=== PATIENT | female | born 1965 | race Caucasian/White ===

== ENCOUNTER 2024-07-23 11:47 | Inpatient (IN) | payer MEDICAID, SELFPAY ==
[2024-07-23] VITALS (8 sets, daily range): BP systolic 123–157; BP diastolic 88–105; PULSE 90–101; RESP 19–96; TEMP 36.5–37.2; O2SAT 95–97
--- NOTE | 2024-07-23 12:51 | EKG_ITS ---
[facility] Test Date: 2024-07-23 Pat Name: TANYA LOJA Department: Room: - Gender: Female Radiology Rn: : 1965 Requested By: Varinder Alba (MARIA ELENA) Order Number: [id number] Reading MD: Varinder Alba (CLOTHING PATTERNMAKER) Measurements Intervals [place] Rate: 90 P: -15 NJ: 184 QRS: 32 QRSD: 77 T: 53 QT: 333 QTc: 409 Interpretive Statements SINUS RHYTHM LOW QRS VOLTAGE IN PRECORDIAL LEADS [QRS DEFLECTION < 1.0 mV IN CHEST LEADS] POSSIBLE ANTERIOR MYOCARDIAL INFARCTION , OF INDETERMINATE AGE [30 ms Q WAVE IN V3/V4, OR R < 0.2 mV IN V4] No previous ECG available for comparison /store/S0/[id number].pdf
--- NOTE | 2024-07-23 12:51 | XR_ITS ---
Examination: AP chest single view Technique one AP portable sitting chest single view Exam date and time: July 23, 2024 1259 hours INDICATIONS: Coughing diarrhea beginning one week ago FINDINGS: Normal heart size No lobar pneumonia Minor atelectasis left lower lobe Old fracture right humeral neck with significant displacement at the fracture site with orthopedic hardware noted IMPRESSION: No pneumonia identified
--- NOTE | 2024-07-23 12:52 | PD.EDRME ---
Rapid Medical Screening Exam RME Arrival date/time: 07/23/24 11:47 58-year-old female presents to the emergency department today via EMS with complaints of generalized weakness Vital signs: Vital Signs Temperature 98.0 F 07/23/24 11:51 Pulse Rate 95 07/23/24 11:51 Respiratory Rate 20 07/23/24 11:51 Blood Pressure 157/97 H 07/23/24 11:51 Pulse Oximetry (%) 95 07/23/24 11:51 Oxygen Delivery Method Room Air 07/23/24 11:51
[2024-07-23 13:42] LABS: Basophils % (Auto) 0 % (0-2.5); Eosinophils % (Auto) 0 % (0-10); Hematocrit 34.9 % (36.0-46.0); Immature Granulocytes % (Auto) 1 % (0-0); Immature Granulocytes Auto 0.04 Thou/mm3 (0.00-0.00); Lymphocytes # (Auto) 0.8 Thou/mm3 (1.0-4.8); Lymphocytes % (Auto) 10 % (10-50); Mean Corpuscular HGB Conc 37.2 g/dl (31.0-37.0); Mean Corpuscular Hemoglobin 33.1 pg (25.0-35.0); Mean Corpuscular Volume 89 fL (80-100); Monocytes # (Auto) 0.6 Thou/mm3 (0.0-0.8); Monocytes % (Auto) 7 % (0-12); Neutrophils # (Auto) 6.2 Thou/mm3 (1.8-7.7); Neutrophils % (Auto) 82 % (37-80); Nucleated Red Blood Cell % 0 /100 WBC (0); Platelet Count 205 Thou/mm3 (140-440); RDW Standard Deviation 38.5 fL (36.4-46.3); Red Blood Count 3.93 Miln/mm3 (4.00-5.20); White Blood Count 7.6 Thou/mm3 (3.6-11.0)
[2024-07-23 13:55] LABS: Alanine Aminotransferase 47 U/L (10-49); Albumin, Serum 4.5 gm/dL (3.4-4.8); Albumin/Globulin Ratio 1.7 (1.2-2.2); Alkaline Phosphatase 90 U/L (46-116); Anion Gap 11 (7-16); Aspartate Amino Transferase 40 U/L (0-34); BUN/Creatinine Ratio 9 Ratio (12-20); Bilirubin,Total 1.2 mg/dL (0.3-1.2); Blood Urea Nitrogen 6 mg/dL (9-23); Calcium 8.8 mg/dL (8.3-10.6); Calcium (Corrected) 8.8 mg/dL (8.5-10.1); Carbon Dioxide 19.4 mMol/L (20.0-31.0); Chloride 83 mMol/L (98-107); Creatinine (Component) 0.7 mg/dL (0.6-1.3); Estimated Creatinine Clearance 75.1 mL/min (>60); Globulin 2.6 gm/dL (2.3-3.5); Glucose 95 mg/dL (74-106); Lipase 34 U/L (12-53); Osmolality,Calculated 226 (275-295); Potassium 4.6 mMol/L (3.4-5.1); Total Protein 7.1 gm/dL (5.7-8.2); Troponin I < 0.020 ng/mL (0.0-0.045); eGFR > 60 See Note
[2024-07-23 13:58] LABS: Sodium 113 mMol/L (136-145)
[2024-07-23 19:04] LABS: Collection Type, Urine Clean Catch
--- NOTE | 2024-07-23 19:06 | PD.EDNV ---
Nausea/Vomit./Diarrhea-RME/HPI General Chief complaint: Nausea/Vomiting/Diarrhea Stated complaint: DIARRHEA X1 WEEK, DEHYDRATION Time Seen by Provider: 07/23/24 18:26 Arrival date/time: 07/23/24 11:47 RME / HPI RME / HPI Narrative: 07/23/24 11:47 58-year-old female presents to the emergency department today via EMS with complaints of generalized weakness Dr. Denton?s Main ED Evaluation: 58 y/o female with Hx of Multiple Sclerosis, Hypertension, COPD, Asthma, Osteoporosis, Fibromyalgia, Fractures, Degenerative Joint Disease, Hypothyroidism, and smoking presents to ED BIB daughter c/o diarrhea x 3 days. Patient reports 4-5 episodes of diarrhea per day and a couple episodes of nausea with dry-heaving. Per daughter, patient uses a walker to ambulate without complication, but has been receiving calls that patient cannot get up or get around on her own anymore. Patient admits to restarting hydrochlorothiazide due to BLE swelling. Denies vomiting, fever, chills, abdominal pain or any other associated symptoms. Denies any sick contacts. No antibiotic use in the past month. Related Data Home Medications ?Medication ?Instructions ?Recorded ?Confirmed montelukast 10 mg tablet 1 tab PO HS ##0 09/01/16 04/15/22 (Singulair) lisinopril 10 mg tablet 20 mg PO QDAY 05/02/17 04/15/22 albuterol sulfate 90 mcg/actuation 1 puff inhalation Q6H PRN 03/29/19 04/15/22 aerosol inhaler Shortness Of Breath fluticasone furoate 200 1 inh inhalation QDAY 03/29/19 04/15/22 mcg/actuation blister powder for inhalation (Arnuity Ellipta) spironolactone 50 mg tablet 50 mg PO QDAY 06/26/19 04/15/22 ibuprofen 800 mg tablet 800 mg PO BID 04/14/22 04/15/22 loratadine 10 mg tablet 10 mg PO DAILY 04/14/22 04/15/22 Previous Rx's ?Medication ?Instructions ?Recorded levothyroxine 175 mcg tablet 175 mcg PO ACBR #30 tabs 03/31/19 Held on 07/25/24. Instructions: Resume on 09/26/24. sodium chloride 1,000 mg soluble 1,000 mg PO BID 30 days #60 tabs 07/25/24 tablet Allergies Allergy/AdvReac Type Severity Reaction Status Date / Time adhesive tape Allergy Severe ANY Verified 07/23/24 12:13 MEDICAL TAPE / RASH prednisone Allergy Severe CRAZY Verified 07/23/24 12:13 Penicillins Allergy Mild Rash Verified 07/23/24 12:13 aspirin Allergy Unknown Verified 07/23/24 12:13 Sulfa (Sulfonamide Allergy Unknown Verified 07/23/24 12:13 Antibiotics) sulfacetamide Allergy Unknown Verified 07/23/24 12:13 Review of Systems Review of Systems Systems Reviewed: All systems reviewed, normal except as documented Past Medical History Past Medical History NEUROLOGIC: Positive Neurological Disorders and Multiple Sclerosis CARDIAC: Positive Cardiac Disorders and Hypertension RESPIRATORY: Positive Chronic Obstructive Pulmonary Disease (COPD) and Asthma GASTROINTESTINAL: Positive Gastrointestinal Disorders and Gall Bladder Disease REPRODUCTIVE: Positive Previous Pregnancies MUSCULOSKELETAL: Positive Musculoskeletal Disorders, Osteoporosis, Carpal Tunnel Syndrome, Fibromyalgia, Fractures and Degenerative Joint Disease ENDOCRINE: Positive Endocrine Disorders and Hypothyroidism OTHER HISTORY: Positive Hospitalization, Falls and Chicken Pox Family History FAMILY HISTORY: Positive Family Gastrointestinal Problems (sister colon cancer) and Family Cancer (sister colon cancer) Surgical History SURGICAL: Positive Eye Surgery, Abdominal Surgery, Open Reduction Internal Fixation (right shoulder), Hysterectomy and Section Social History SMOKING STATUS: Current every day smoker ED Exam Narrative Physical exam: GENERAL APPEARANCE: alert and oriented x 4, well-developed, well-nourished, no acute distress VITALS: All vitals were reviewed and the pulse ox is 95% on room air, which is normal according to my interpretation. HEENT: Normocephalic, atraumatic; pupils equal, round, reactive to light; EOMI; mucous membranes pink, moist; oropharynx clear NECK: Supple LUNGS: CTABL; no wheezes, no rales, no rhonchi HEART: Regular rate, regular rhythm; normal S1, S2; no murmurs ABDOMEN: non distended; normal BS; soft, no tenderness, no guarding, no rebound; no masses, no organomegaly, no hernia BACK: no CVA tenderness EXTREMITIES: atraumatic; 1+ pitting edema bilaterally, mild-moderate spastic quadriplegia NEUROLOGIC: awake; alert and oriented x4; cranial nerves II-XII grossly intact; no focal sensory or motor deficits PSYCHIATRIC: appropriate mood and affect SKIN: warm, dry, normal color; no rashes Course Quality Measures none Orders Category Date Time Status Insurance Administrative Assistant Q4H START 00 Care 07/23/24 18:37 Completed Continuous Pulse Oximetry NOW Care 07/23/24 18:37 Completed EKG (ED ONLY) *Do not use* NOW Care 07/23/24 12:51 Completed IV [Insert IV] NOW Care 07/23/24 18:37 Completed In and Out Catheter X1 Care 07/23/24 18:40 Completed Occult Blood,Stool (Nursing) NOW Care 07/23/24 18:36 Completed EKG (ED Only) Stat Exams 07/23/24 12:51 Draft XR chest 1V portable Stat Exams 07/23/24 12:51 Completed CBC Stat Lab 07/23/24 13:12 Completed Clostridium Difficile PCR Stat Lab 07/23/24 Stop Req Comprehensive Metabolic Panel Stat Lab 07/23/24 13:12 Completed Free T4 (Free Thyroxine) Stat Lab 07/23/24 13:12 Completed Lipase Stat Lab 07/23/24 13:12 Completed Magnesium Stat Lab 07/23/24 13:12 Completed Osmolality, Serum* Stat Lab 07/23/24 18:45 Received Osmolality, Urine* Stat Lab 07/23/24 18:45 Received Sodium,Urine Random Stat Lab 07/23/24 18:45 Completed Thyroid Stimulating Hormone Stat Lab 07/23/24 13:12 Completed Troponin I Stat Lab 07/23/24 13:12 Completed UA, C/S IF [Urinalysis, C/S if Indicated] Stat Lab 07/23/24 18:45 Completed SODIUM CHLORIDE 3%(Hypertonic) [Hypertonic Saline 3%] Med 07/23/24 18:37 Discontinued 500 ml Pre-Mixed [Pre-mixed Bag] 1 bag IV X1 Sodium Chloride 0.9% 1000 ml [Ns] 1,000 ml Med 07/23/24 18:37 Discontinued IV 999 mls/hr Vital Signs Vital signs: Vital Signs Temperature 98.0 F 07/23/24 11:51 Pulse Rate 95 07/23/24 11:51 Respiratory Rate 20 07/23/24 11:51 Blood Pressure 157/97 H 07/23/24 11:51 Pulse Oximetry (%) 95 07/23/24 11:51 Oxygen Delivery Method Room Air 07/23/24 11:51 Nausea/Vomiting/Diarrhea MDM Narrative MDM Narrative:: Scribe Attestation: I, Isis Harrington, am scribing for and in the presence of Dr. Denton. Provider Notation: Although this document has been carefully reviewed, there may still be some phonetic and other typographical errors.? These errors are purely grammatical due to imperfections in the software program and should not be construed in any way to? compromise the substance of the patient's medical care during this visit. CXR shows right shoulder hardware, film rotated slightly, no infltrates, per my interpretation. Patient data External records reviewed:: [facility] previous records (Reviewed prior ED records from 09/26/21. Patient was seen for Abscess of submandibular region.) Clinical information provided by:: patient and family (daughter) Social determinants that could affect healthcare access:: none Patient has the following chronic illnesses:: Multiple Sclerosis, Hypertension, COPD, Asthma, Gall Bladder Disease, Osteoporosis, Carpal Tunnel Syndrome, Fibromyalgia, Fractures, Degenerative Joint Disease, Hypothyroidism How is presenting disease/condition affected by chronic disease/condition?: exacerbated by Evaluation data The following diagnostics were reviewed and interpreted by me:: lab results, radiology exam(s) and EKG tracing(s) (EKG at 1305 shows normal sinus rhythm with rate of 90, normal axis, no ectopy, no signs of acute ischemia.) Lab and/or radiology exams considered but not ordered:: None. Interpretation Summary: Labs: Labs show Sodium of 113, Chloride 83, CO2 19.4, BUN 6, BUN/Creatinine 9, AST 40, TSH 0.08, Free T4 1.90. UA is turbid, Ketones 1+, WBC 9, Squamous Epithelial cells 98, Bacteria 1+, Random Sodium 18.6. RADIOLOGY Chest X-Ray: Patient: SAJI BOJORQUEZ. Record#: [id number] Birthdate: 03/06/1987 Age/Sex: 37 / F Location: [facility] Attending Dr: Ordering Physician: Jam Denton MD Date of Service: 07/23/24 Procedure(s): XR chest 1V portable Accession Number(s): [id number] cc: Blane Elizondo MD; Abdulaziz Tejada MD; Jam Denton MD~ Examination: AP chest single view TECHNIQUE: AP portable upright chest single view Examination type: July 23, 2024 and 195 hours Comparison June 05, 2024 INDICATIONS: Chest pain today. FINDINGS: Mild prominence left ventricle Moderate vascular congestion. No lobar pneumonia or pulmonary edema Mild osteopenia IMPRESSION: Moderate vascular congestion Dictated By: Abdulaziz Tejada MD Signed By: <Electronically signed by Abdulaziz Tejada MD in OV> 07/23/242115 Medications / Prescriptions Medications / Prescriptions considered but not ordered:: None. Medication administrations:: Medication Administration History Discontinued Medications Acetaminophen (Acetaminophen 325 Mg Tablet) 650 mg PO Q6H PRN PRN Reason: Fever >100.3 or pain 1-3 Stop: 08/22/24 20:20 Hydrocodone Bitart/Acetaminophen (Hydrocodone/Apap 5/325 Tablet) 1 tab PO Q6HR PRN PRN Reason: PAIN Stop: 07/29/24 02:23 Hydrocodone Bitart/Acetaminophen (Hydrocodone/Apap 5/325 Tablet) 1 tab PO Q6HR PRN PRN Reason: PAIN SCALE 7-10 (Severe Stop: 07/29/24 02:23 Last Admin: 07/25/24 13:22 Dose: 1 tab Documented By: Admin: 07/25/24 05:22 Dose: 1 tab Documented By: Admin: 07/24/24 18:04 Dose: 1 tab Documented By: Admin: 07/24/24 09:17 Dose: 1 tab Documented By: Admin: 07/24/24 02:49 Dose: 1 tab Documented By: MC Albuterol (Albuterol Inh 8 Gm) 2 puff INH Q4H PRN PRN Reason: SHORTNESS OF BREATH Stop: 08/22/24 20:29 Last Admin: 07/25/24 13:26 Dose: 2 puff Documented By: Admin: 07/25/24 08:39 Dose: 2 puff Documented By: Admin: 07/24/24 09:41 Dose: 2 puff Documented By: Admin: 07/23/24 22:52 Dose: 2 puff Documented By: CON Enoxaparin Sodium (Enoxaparin Sod Inj 40 Mg/0.4 Ml Syringe) 40 mg SC QDAY LYLE Stop: 08/06/24 20:29 Last Admin: 07/25/24 08:24 Dose: 40 mg Documented By: Admin: 07/24/24 09:16 Dose: 40 mg Documented By: Admin: 07/23/24 21:40 Dose: 40 mg Documented By: XENA Sodium Chloride (Ns) 1,000 mls @ 999 mls/hr IV .Q1H1M ONE Stop: 07/23/24 19:37 Last Infusion: 07/23/24 20:19 Dose: Infused Documented By: Admin: 07/23/24 19:08 Dose: 999 mls/hr Documented By: XENA Sodium Chloride 500 ml/ IV (Miscellaneous Supplies) 500 mls @ 30 mls/hr IV X1 ONE Stop: 07/24/24 11:16 Last Infusion: 07/23/24 20:19 Dose: 0 mls/hr Documented By: Admin: 07/23/24 19:09 Dose: 30 mls/hr Documented By: XENA Ceftriaxone Sodium/Dextrose (Rocephin/D5w 1gm Iv Premix) 1 gm in 50 mls @ 100 mls/hr IV QDAY LYLE Stop: 07/30/24 20:00 Last Admin: 07/24/24 09:15 Dose: 100 mls/hr Documented By: Infusion: 07/23/24 21:32 Dose: Infused Documented By: Admin: 07/23/24 20:22 Dose: 100 mls/hr Documented By: XENA Sodium Chloride (Ns) 1,000 mls @ 70 mls/hr IV .[id number] LYLE Stop: 08/22/24 21:44 Last Infusion: 07/24/24 03:38 Dose: Infused Documented By: Admin: 07/23/24 22:06 Dose: 70 mls/hr Documented By: XENA Sodium Chloride (Ns) 1,000 mls @ 60 mls/hr IV .[id number] LYLE Stop: 08/23/24 13:53 Last Infusion: 07/24/24 17:04 Dose: 30 mls/hr Documented By: Admin: 07/24/24 14:04 Dose: 60 mls/hr Documented By: PADDY Sodium Chloride (Ns) 1,000 mls @ 30 mls/hr IV .Q24H [facility] Stop: 08/23/24 16:49 Last Admin: 07/24/24 17:06 Dose: Not Given Documented By: PADDY Non-Admin Reason: decrease rate from previous bag Sodium Chloride (Ns) 1,000 mls @ 75 mls/hr IV .[id number] [facility] Stop: 08/24/24 00:33 Sodium Chloride (Ns) 1,000 mls @ 35 mls/hr IV .Q24H [facility] Stop: 08/24/24 02:14 Ibuprofen (Ibuprofen Tab 400 Mg Tablet) 800 mg PO Q6HR ONE Stop: 07/24/24 01:06 Last Admin: 07/24/24 01:18 Dose: Not Given Documented By: DAVID Non-Admin Reason: Discontinued Ibuprofen (Ibuprofen Tab 400 Mg Tablet) 800 mg PO X1 ONE Stop: 07/24/24 01:12 Last Admin: 07/24/24 01:16 Dose: 800 mg Documented By: DAVID Melatonin (Melatonin 3 Mg Tablet) 3 mg PO HS [facility] Stop: 08/23/24 20:59 Last Admin: 07/24/24 20:19 Dose: 3 mg Documented By: JOEL Ondansetron HCl (Ondansetron Inj 2 Mg/Ml Inj 2 Ml) 4 mg IV Q6H PRN; Protocol PRN Reason: NAUSEA OR VOMITING Stop: 08/22/24 20:20 Last Admin: 07/25/24 01:23 Dose: 4 mg Documented By: JOEL Potassium Chloride (Potassium Chloride 20 Meq Tabcr) 20 meq PO X1 ONE Stop: 07/25/24 07:58 Last Admin: 07/25/24 08:24 Dose: 20 meq Documented By: EYAD Sodium Chloride (Sodium Chloride 1 Gm Tablet) 2 gm PO QID [facility] Stop: 08/24/24 00:44 Last Admin: 07/25/24 05:09 Dose: 2 gm Documented By: Admin: 07/25/24 01:08 Dose: 2 gm Documented By: JOEL Sodium Chloride (Sodium Chloride 1 Gm Tablet) 2 gm PO BID [facility] Stop: 08/24/24 08:59 Last Admin: 07/25/24 08:24 Dose: 2 gm Documented By: EYAD See above if any. Consultations Consultation(s) initiated? (list below): Yes Consultation #1 (Physician, Specialty, Details): Dr. Rabago made aware of the patient?s HPI, PMHx, lab and/or radiology results. Treatment plan was discussed. Will admit for further evaluation and management. Accepts patient for admission. Time: 19:30 Diagnosis Nausea Differential Diagnosis: clostridium difficile infection and other (Viral diarrhea, bacterial diarrhea) Most likely diagnosis given after review of the tests above:: See clinical impression below. Admission Indicated Admission indicated?: indicated Explain why admission is indicated or not indicated:: Hyponatremia Admission Request Was there a request for admission?: Yes Admission Attestation Admission request attestation: Discussed case with [] from Hospitalist service regarding admission. Discussed patients ED course, exam findings, labs, and radiology results. The Hospitalist [agrees,declines] to accept the patient for admission. Disposition Plan Disposition Plan: Admit Discharge Plan Plan Patient Disposition: Admit Acute Care w/in Hospital Problem List Clinical Impression: Hyponatremia, Diarrhea Patient/Caregiver Discharge Instructions Discharge Activity: as per physical therapy and activity as tolerated
[2024-07-23] MEDS: SODIUM CHLORIDE 0.9% 1000 ML 1,000 ML 999 ML IV (19:08)
[2024-07-23] MEDS: SODIUM CHLORIDE 3%(Hypertonic) 500 ML in PRE-MIXED 1 BAG 30 ML IV (19:09)
[2024-07-23 19:15] LABS: Bacteria,Urine 1+; Bilirubin,Urine Negative (Negative); Blood,Urine Trace (Negative); Clarity,Urine Turbid (Clear/Hazy); Color,Urine Yellow (Lt Yel-Yel); Culture Indicated,Urine Contaminated; Glucose, Urine Negative (Negative); Ketones,Urine 1+ (Negative); Leukocyte Esterase,Urine Positive (Negative); Nitrite,Urine Negative (Negative); Protein,Urine Negative (Neg - Trace); RBC,Urine 2 /hpf (0-3); Specific Gravity,Urine 1.005 (1.001-1.035); Squamous Epithelial Cell,Urine 98 /hpf (0-5); Urobilinogen,Urine Negative mg/dL (0.0-1.0); WBC,Urine 9 /hpf (0-5)
[2024-07-23 19:36] LABS: Sodium,Urine Random 18.6 mMol/L (20.0-110.0)
--- NOTE | 2024-07-23 19:55 | EVENTNT_ITS ---
Documentation for date of: 07/23/24 Event Note Event Note: A 58-year-old female presented to the ER with the chief complaint of generalized weakness. The patient described 3?4 days of progressive generalized weakness and fatigue. She reported her legs ?locking up? and difficulty walking without a walker. She also reported frequent loose bowel movements (3?7 per day, beginning 3?4 days ago, associated with eating or drinking), dry heaving (without emesis), poor appetite, lethargy, and a fall from bed 2?3 days ago. She noted brief dizziness but attributed it to stress. She also c/o chronic cough with phlegm and baseline SOB due to COPD and asthma. She denied fever, chest pain, abdominal pain, vomiting, or new urinary symptoms. She recently paused her diuretic due to bothersome urinary frequency and has not resumed it. She came to the ER at the insistence of her daughter due to ongoing weakness and functional decline. The patient has a history of HTN, hypothyroidism, COPD, asthma, and multiple sclerosis. Surgical history includes left ankle ORIF with hardware removal, cho lecystectomy, and four C-sections. Current medications include Lisinopril, Hydrochlorothiazide, Levothyroxine, Albuterol, Spiriva. Social history includes tobacco use (less than 1 pack per day), rare alcohol use (at celebrations), and no reported drug use. Functional status: ambulatory with walker at baseline, currently unable to ambulate without assistance. She lives with her 20-year-old grandson, and her daughter is her caregiver. In the ER, vital signs recorded as temp 98.0 F, HR 95 bpm, RR 20, BP 157/97 mmHg. GCS 15. Labs revealed Na 113, K 4.6, Cl 83, BUN 6, Cr 0.7, eGFR >60, WBC 7.6, Hgb 13.0, Plt 205, AST 40, ALT 47, Bilirubin 1.2, Troponin <0.020. UA showed leukocyte esterase positive, WBC 9/hpf, RBC 2/hpf, turbid appearance, 1+ ketones, 1+ blood, urine sodium 18.6. CXR showed no pneumonia. EKG showed sinus rhythm. Plan is to admit for hyponatremia. #Hyponatremia, likely chronic Assessment: Na 113, urine sodium 18.6, associated with generalized weakness, falls, gait instability, poor oral intake, diarrhea; likely multifactorial (GI losses, thiazide use) Plan: - Received 1 liter NS bolus and 3% NaCl 35 ml in the ER - Start slow correction with isotonic saline - Monitor serum Na q4-6h, avoid overcorrection (>8?10 mEq/24hr) - Discontinue HCTZ - Monitor neuro status, fall precautions - Evaluate for underlying etiology (stool studies, urine osmolality, TSH) #Diarrhea Assessment: 3?7 loose BMs daily x3?4 days, temporally related to food/fluid intake, mild leukocytosis in UA (likely dehydration); no fever or leukocytosis systemically Plan: - Send stool studies - Maintain hydration with isotonic fluids - Electrolyte repletion as needed #Urinary Tract Infection Assessment: UA with leukocyte esterase positive, WBCs 9/hpf, turbid urine Plan: - Send urine culture - Start ceftriaxone , adjust per sensitivities #Fall with Functional Decline Assessment: Recent fall from bed, progressive weakness, inability to ambulate; GCS 15, no focal deficits reported, likely due to hyponatremia and deconditioning Plan: - Fall precautions - PT evaluation for mobility and safety #Chronic Obstructive Pulmonary Disease and Asthma Assessment: Baseline chronic cough with sputum, no acute respiratory distress, no hypoxia, no infiltrates on CXR Plan: - Continue home inhalers - Monitor respiratory status - Smoking cessation counseling #Hypertension Assessment: BP 157/97 on admission, chronic Lisinopril + HCTZ use, HCTZ held Plan: - Monitor BP - Continue Lisinopril - Hold HCTZ due to hyponatremia and recent volume depletion #Hypothyroidism Assessment: TSH 0.08, free T4 1.8 Plan: - Hold Levothyroxine now #Multiple Sclerosis Assessment: Baseline ambulatory with walker, now unable to ambulate Plan: - Outpatient f/u
[2024-07-23 20:04] LABS: Magnesium 1.7 mg/dL (1.6-2.6); Thyroid Stimulating Hormone 0.08 uIU/mL (0.55-4.78)
[2024-07-23] MEDS: cefTRIAXone/D5w 1gm IV premix 1 GM/50 ML BAG IV (20:22)
--- NOTE | 2024-07-23 20:34 | PD.RESHP ---
Documentation for date of: 07/23/24 HPI History of Present Illness Chief complaint: diarrhea History of present illness: Kristy Luis is 58 yr female with PMH of hypothyroidism, hypertension, asthma presenting to ED due to episodes of diarrhea since past 3 to 4 days. Patient stated that she has been having about 5-6 episodes per day, no blood in the stool, denies any travel, no sick contacts. Daughter at bedside stated that patient also drinks minimal water about 240 cc/day. She has had poor oral intake since past few days with even liquids resulting in diarrhea. She denies any vomiting, fever, chills, recent hospitalizations, no new medication changes such as antibiotics. Typically able to conduct ADLs without any issues and uses a walker for support. States that she lives with grandson who assists occasionally. Since episodes of diarrhea have started, patient is also been experiencing some lower extremity stiffness. Stating that her knees will lock and is difficult for her to bend and get up from bed. She needed assistance from family. Patient denies any chest pain, SOB, orthopnea, dysuria. In ED, BP 157/97, HR 95, afebrile. CBC unremarkable. Sodium 113, potassium 4.6, bicarb 19, Cr 0.7, glucose 95, Osmol 226, TSH 0.08, free t4 1.90. UA showed leukocyte esterase positive, WBC 9, 1+ ketones, 1+ blood, urine sodium 18.6. CXR negative for pathology, EKG showed sinus tachy rate 90, Qtc 409. Patient was given NS bolusx1 and half liter 3%saline in ED. Will admit for asymptomatic hyposmolar hyponatremia and diarrhea. PMH: as noted above PSH: Cholecystectomy, , left ankle surgery, right shoulder surgery Family Hx: Unknown history in mother or father, sister from colon cancer. Social: Unemployed, lives in [place] with grandson, has been smoking since past 40 years, typically smoking 1 pack/day. Denies any drug use. Drinks only socially. Allergies: Prednisone, penicillin, aspirin, sulfa as Meds: Albuterol inhaler, levothyroxine 175 mcg, lisinopril 20 mg, loratadine 10 mg, spironolactone, hydrochlorothiazide Review of Systems Review of Systems Systems Reviewed: All systems reviewed, normal except as documented Exam Vital Signs Temp Pulse Resp BP Pulse Ox O2 Del Method 97.7 F 92 22 H 143/105 H 97 Room Air 07/23/24 18:22 07/23/24 19:12 07/23/24 18:22 07/23/24 18:22 07/23/24 18:22 07/23/24 18:22 Narrative Exam General: Elderly female, No acute distress, cooperative HEENT: NCAT, No JVD noted. Mucosa dry. Pupils are equal and reactive to light bilaterally Cardiovascular: Normal S1 and S2. Regular rate and rhythm. Respiratory: expiratory wheezing Abdomen: Soft, nontender, not distended, normal bowel sounds. Skin: Warm to touch, dry Musculoskeletal: No gross injuries. Able to move all 4 extremities. +1 pitting edema. Neuro: Alert and oriented x3. No focal neuro deficits. Psych: Normal affect and mood Results: Labs 07/23/24 13:12 07/23/24 20:35 Labs: Short CBC 07/23/24 Range/Units 13:12 WBC 7.6 (3.6-11.0) Thou/mm3 Hgb 13.0 (12.0-16.0) g/dL Hct 34.9 L (36.0-46.0) % Plt Count 205 (140-440) Thou/mm3 BMP 07/23/24 13:12 Sodium 113 L* Potassium 4.6 Chloride 83 L Carbon Dioxide 19.4 L BUN 6 L Creatinine 0.7 Glucose 95 Calcium 8.8 Cardiac Enzymes 07/23/24 Range/Units 13:12 Troponin I < 0.020 (0.0-0.045) ng/mL Liver Function 07/23/24 Range/Units 13:12 Total Bilirubin 1.2 (0.3-1.2) mg/dL AST 40 H (0-34) U/L ALT 47 (10-49) U/L Alkaline Phosphatase 90 (46-116) U/L Albumin 4.5 (3.4-4.8) gm/dL Urine 07/23/24 Range/Units 18:45 Urine Color Yellow (Lt Yel-Yel) Urine Clarity Turbid A (Clear/Hazy) Urine pH 6.0 (5.0-7.0) Ur Specific [place] 1.005 (1.001-1.035) Urine Protein Negative (Neg - Trace) Urine Glucose (UA) Negative (Negative) Quality Measures Quality Measures none Medications Home Medications and Allergies Home Medications ?Medication ?Instructions ?Recorded ?Confirmed ?Type montelukast 10 mg tablet 1 tab PO HS ##0 09/01/16 04/15/22 History (Singulair) lisinopril 10 mg tablet 20 mg PO QDAY 05/02/17 04/15/22 History albuterol sulfate 90 mcg/actuation 1 puff inhalation Q6H PRN 03/29/19 04/15/22 History aerosol inhaler Shortness Of Breath fluticasone furoate 200 1 inh inhalation QDAY 03/29/19 04/15/22 History mcg/actuation blister powder for inhalation (Arnuity Ellipta) spironolactone 50 mg tablet 50 mg PO QDAY 06/26/19 04/15/22 History ibuprofen 800 mg tablet 800 mg PO BID 04/14/22 04/15/22 History loratadine 10 mg tablet 10 mg PO DAILY 04/14/22 04/15/22 History Allergies Allergy/AdvReac Type Severity Reaction Status Date / Time adhesive tape Allergy Severe ANY Verified 07/23/24 12:13 MEDICAL TAPE / RASH prednisone Allergy Severe CRAZY Verified 07/23/24 12:13 Penicillins Allergy Mild Rash Verified 07/23/24 12:13 aspirin Allergy Unknown Verified 07/23/24 12:13 Sulfa (Sulfonamide Allergy Unknown Verified 07/23/24 12:13 Antibiotics) sulfacetamide Allergy Unknown Verified 07/23/24 12:13 Visit Medications Acetaminophen (Acetaminophen 325 Mg Tablet) 650 mg PO Q6H PRN PRN Reason: Fever >100.3 or pain 1-3 Stop: 08/22/24 20:20 Albuterol (Albuterol Inh 8 Gm) 2 puff INH Q4H PRN PRN Reason: SHORTNESS OF BREATH Stop: 08/22/24 20:29 Enoxaparin Sodium (Enoxaparin Sod Inj 40 Mg/0.4 Ml Syringe) 40 mg SC QDAY [facility] Stop: 08/06/24 20:29 Ceftriaxone Sodium/Dextrose (Rocephin/D5w 1gm Iv Premix) 1 gm in 50 mls @ 100 mls/hr IV QDAY LYLE Stop: 07/30/24 20:00 Last Admin: 07/23/24 20:22 Dose: 100 mls/hr Ondansetron HCl (Ondansetron Inj 2 Mg/Ml Inj 2 Ml) 4 mg IV Q6H PRN; Protocol PRN Reason: NAUSEA OR VOMITING Stop: 08/22/24 20:20 Discontinued Medications Sodium Chloride (Ns) 1,000 mls @ 999 mls/hr IV .Q1H1M ONE Stop: 07/23/24 19:37 Last Infusion: 07/23/24 20:19 Dose: Infused Sodium Chloride 500 ml/ IV (Miscellaneous Supplies) 500 mls @ 30 mls/hr IV X1 ONE Stop: 07/24/24 11:16 Last Infusion: 07/23/24 20:19 Dose: 0 mls/hr Assessment & Plan Plan Kristy Luis is 58 yr female with PMH of hypothyroidism, hypertension, asthma presenting to ED due to episodes of diarrhea since past 3 to 4 days. Patient stated that she has been having about 5-6 episodes per day, no blood in the stool, denies any travel, no sick contacts. Will admit for asymptomatic hyposmolar hyponatremia and diarrhea. #Hyposmolar hyponatremia Ddx: decreased intake, SE from diuretics (uses HCTZ at home), diarrhea Patient has had poor oral intake along with multiple episodes of diarrhea since past couple days. Typically drinks 240 cc water per day. Sodium 113, potassium 4.6, bicarb 19, Cr 0.7, Osmol 226, urine sodium 18.6. Urine osmolarity pending. Got NS bolus and half liter 3% saline in ED. - Continue saline at 70cc/hr - Follow up BMP 2am - Monitor serum Na q4-6h, avoid overcorrection (>8?10 mEq/24hr) - Hold HCTZ #Hypochloremic metabolic acidosis In setting of diarrhea. - Repeat BMP #Diarrhea Patient has had poor oral intake along with multiple episodes of diarrhea since past couple days. No recent hospitalizations or antibiotics. - Patient received total of 1.5L fluids. Continue maintenance 70 cc/h - Follow-up blood culture - Stool studies including, C. difficile, O&P, stool culture, stool WBC pending - Urine culture pending - Clear liquid diet - Zofran #Bacteriuria UA showed leukocyte esterase positive, WBC 9, 1+ ketones, 1+ blood, urine sodium 18.6. Patient is denying any symptoms of dysuria. - Monitor #Hx hypothyroidism TSH 0.08, free t4 1.90. Patient takes 175mcg daily. - Hold during hospitalization - Follow up oupatient to resume #Hx HTN #Hx asthma - Med rec pending - Hold diurectics - Resumed alubterol inhaler PRN Health maintenance: Dispo: tele, hyponatremia/diarrhea FEN: clear liquid DVT prophylaxis: Lovenox CODE STATUS: Full code The patient's management plan was discussed with my attending physician Dr. Rabago. Kiana Mauro, PGY-1 Attending Provider Attestation/Addendum Pt was evaluated and plan formulated together with the housestaff team. I have reviewed the residents note above and agree with most of its content. Please refer to the residents note for additional details.
[2024-07-23 21:18] LABS: Anion Gap 8 (7-16); BUN/Creatinine Ratio 12 Ratio (12-20); Blood Urea Nitrogen 7 mg/dL (9-23); Calcium 8.2 mg/dL (8.3-10.6); Carbon Dioxide 17.4 mMol/L (20.0-31.0); Chloride 90 mMol/L (98-107); Creatinine (Component) 0.6 mg/dL (0.6-1.3); Estimated Creatinine Clearance 87.6 mL/min (>60); Glucose 99 mg/dL (74-106); Osmolality,Calculated 230 (275-295); Potassium 3.8 mMol/L (3.4-5.1); eGFR > 60 See Note
[2024-07-23 21:25] LABS: Sodium 115 mMol/L (136-145)
[2024-07-23 21:33] LABS: B-Type Natriuretic Peptide 49 pg/mL (0-100)
[2024-07-23] MEDS: ENOXAPARIN SOD INJ 40 MG/0.4 ML SYRINGE SC (21:40)
[2024-07-23] MEDS: SODIUM CHLORIDE 0.9% 1000 ML 1,000 ML 70 ML IV (22:06)
[2024-07-23] MEDS: ALBUTEROL INH 8 GM 2 PUFF INH (22:52)
[2024-07-24] VITALS (10 sets, daily range): BP systolic 86–105; BP diastolic 61–76; PULSE 75–103; RESP 16–96; TEMP 35.9–37.1; O2SAT 93–96; BMI 11.0
--- NOTE | 2024-07-24 01:05 | PC.NURSE ---
DR. SEARS NOTIFIED OF PATIENT'S REQUEST FOR IBUPROFEN, PATIENT REPORTING BACK PAIN AND THAT IS WHAT SHE USUALLY TAKES FOR THE BACK. DR. SEARS STATED THAT SHE WILL ORDER THE IBUPROFEN MEDICATION.
[2024-07-24] MEDS: IBUPROFEN TAB 400 MG TABLET 800 MG PO (01:16)
--- NOTE | 2024-07-24 02:32 | PC.NURSE ---
DR. RODRIGUEZ NOTIFIED OF PAIN 10/28, DR. RODRIGUEZ STATES HE WILL ORDER PAIN MEDICATION.
[2024-07-24] MEDS: HYDROcodone/APAP 5/325 TABLET 1 TAB PO ×3 (02:49→18:04)
[2024-07-24 02:55] LABS: Anion Gap 9 (7-16); BUN/Creatinine Ratio 13 Ratio (12-20); Blood Urea Nitrogen 8 mg/dL (9-23); Calcium 8.1 mg/dL (8.3-10.6); Carbon Dioxide 16.1 mMol/L (20.0-31.0); Chloride 93 mMol/L (98-107); Creatinine (Component) 0.6 mg/dL (0.6-1.3); Estimated Creatinine Clearance 87.6 mL/min (>60); Glucose 80 mg/dL (74-106); Osmolality,Calculated 235 (275-295); eGFR > 60 See Note
[2024-07-24 03:16] LABS: Sodium 118 mMol/L (136-145)
[2024-07-24 05:49] LABS: Basophils % (Auto) 0 % (0-2.5); Eosinophils % (Auto) 0 % (0-10); Hematocrit 30.7 % (36.0-46.0); Hemoglobin 11.6 g/dL (12.0-16.0); Immature Granulocytes % (Auto) 1 % (0-0); Immature Granulocytes Auto 0.03 Thou/mm3 (0.00-0.00); Lymphocytes # (Auto) 0.6 Thou/mm3 (1.0-4.8); Lymphocytes % (Auto) 9 % (10-50); Mean Corpuscular HGB Conc 37.8 g/dl (31.0-37.0); Mean Corpuscular Hemoglobin 33.2 pg (25.0-35.0); Mean Corpuscular Volume 88 fL (80-100); Monocytes # (Auto) 0.5 Thou/mm3 (0.0-0.8); Monocytes % (Auto) 8 % (0-12); Neutrophils # (Auto) 5.1 Thou/mm3 (1.8-7.7); Neutrophils % (Auto) 82 % (37-80); Nucleated Red Blood Cell % 0 /100 WBC (0); Platelet Count 170 Thou/mm3 (140-440); RDW Standard Deviation 39.6 fL (36.4-46.3); Red Blood Count 3.49 Miln/mm3 (4.00-5.20); White Blood Count 6.3 Thou/mm3 (3.6-11.0)
[2024-07-24 06:40] LABS: Alanine Aminotransferase 33 U/L (10-49); Albumin, Serum 3.7 gm/dL (3.4-4.8); Albumin/Globulin Ratio 1.7 (1.2-2.2); Alkaline Phosphatase 75 U/L (46-116); Anion Gap 10 (7-16); Aspartate Amino Transferase 25 U/L (0-34); BUN/Creatinine Ratio 13 Ratio (12-20); Bilirubin,Total 0.8 mg/dL (0.3-1.2); Blood Urea Nitrogen 9 mg/dL (9-23); Calcium 8.1 mg/dL (8.3-10.6); Calcium (Corrected) 8.3 mg/dL (8.5-10.1); Carbon Dioxide 19.5 mMol/L (20.0-31.0); Chloride 90 mMol/L (98-107); Creatinine (Component) 0.7 mg/dL (0.6-1.3); Estimated Creatinine Clearance 75.1 mL/min (>60); Globulin 2.2 gm/dL (2.3-3.5); Glucose 80 mg/dL (74-106); Magnesium 1.7 mg/dL (1.6-2.6); Osmolality,Calculated 238 (275-295); Phosphorous 3.8 mg/dL (2.4-5.1); Potassium 4.1 mMol/L (3.4-5.1); Total Protein 5.9 gm/dL (5.7-8.2); eGFR > 60 See Note
[2024-07-24 06:44] LABS: Sodium 119 mMol/L (136-145)
--- NOTE | 2024-07-24 08:50 | ESPR_ITS ---
Documentation for date of: 07/24/24 Subjective Subjective Interval history: Overnight admission with no acute events noted. Seen and examined at bedside and currently does not have any complaints other than being unable to sleep, so will start melatonin. Hyponatremia improed from 113 at 1 PM on 07/23 to 119 at 5 AM on 07/24 and so IVF were stopped - will aim for goal of 121 for tonight. Noted to be hyperthyroid and levothyroxine held and may be possible etiology of her diarrhea. Given that diarrhea had resolved after holding levothyroxine, will DC stool studies. Additionally, she denies any dysuria, hematuria, urgency, frequency and so will discontinue antibiotics. Exam Vital Signs Temp Pulse Resp BP Pulse Ox O2 Del Method 98.8 F 92 17 96/76 96 Room Air 07/24/24 04:08 07/24/24 04:08 07/24/24 04:08 07/24/24 04:08 07/24/24 04:08 07/24/24 04:08 Narrative Exam General: AOx3, no acute distress, able to speak full sentences HEENT: NC/AT, mucous membranes moist, bilateral sclera anicteric Cardiovascular: regular rate and rhythm, S1/S2 present, no murmurs appreciated Pulmonary: mild wheezing appreciated bilaterally, no increased work of breathing Abdominal: soft, non-tender, non-distended, no rebound/guarding, normal bowel sounds present Musculoskeletal: normal ROM, no peripheral edema Skin: warm and dry, intact, no rashes Neuro: CN II-XII intact, no focal deficits Objective Labs 07/24/24 04:56 07/24/24 13:01 Labs: Laboratory Results - last 24 hr 07/23/24 07/23/24 07/23/24 13:12 18:45 20:35 WBC 7.6 RBC 3.93 L Hgb 13.0 Hct 34.9 L MCV 89 MCH 33.1 MCHC 37.2 H RDW Std Deviation 38.5 Plt Count 205 Neut % (Auto) 82 H Lymph % (Auto) 10 [place] % (Auto) 7 Eos % (Auto) 0 Baso % (Auto) 0 Neut # (Auto) 6.2 Lymph # (Auto) 0.8 L [place] # (Auto) 0.6 Eos # (Auto) 0.0 Baso # (Auto) 0.0 Immature Gran # (Auto) 0.04 H Absolute Nucleated RBC 0.00 Immature Gran % 1 H Nucleated RBC % 0 Sodium 113 L* 115 L* Potassium 4.6 3.8 D Chloride 83 L 90 L Carbon Dioxide 19.4 L 17.4 L Anion Gap 11 8 BUN 6 L 7 L Creatinine 0.7 0.6 Estim Creat Clear Calc 75.1 87.6 eGFR > 60 > 60 BUN/Creatinine Ratio 9 L 12 Glucose 95 99 Calculated Osmolality 226 L 230 L Calcium 8.8 8.2 L Corrected Calcium 8.8 Phosphorus Magnesium 1.7 Total Bilirubin 1.2 AST 40 H ALT 47 Alkaline Phosphatase 90 Troponin I < 0.020 B-Natriuretic Peptide 49 Total Protein 7.1 Albumin 4.5 Globulin 2.6 Albumin/Globulin Ratio 1.7 Lipase 34 TSH 0.08 L* Free T4 1.90 H Ur Collection Type Clean Catch Urine Color Yellow Urine Clarity Turbid A Urine pH 6.0 Ur Specific [place] 1.005 Urine Protein Negative Urine Glucose (UA) Negative Urine Ketones 1+ A Urine Blood Trace Urine Nitrite Negative Urine Bilirubin Negative Urine Urobilinogen (Auto) Negative Ur Leukocyte Esterase Positive Urine RBC 2 Urine WBC 9 H Ur Squamous Epith Cells 98 H Urine Bacteria 1+ A Ur Culture Indicated? Contaminated Ur Random Sodium 18.6 L 07/24/24 07/24/24 02:26 04:56 WBC 6.3 RBC 3.49 L Hgb 11.6 L Hct 30.7 L MCV 88 MCH 33.2 MCHC 37.8 H RDW Std Deviation 39.6 Plt Count 170 D Neut % (Auto) 82 H Lymph % (Auto) 9 L [place] % (Auto) 8 Eos % (Auto) 0 Baso % (Auto) 0 Neut # (Auto) 5.1 Lymph # (Auto) 0.6 L [place] # (Auto) 0.5 Eos # (Auto) 0.0 Baso # (Auto) 0.0 Immature Gran # (Auto) 0.03 H Absolute Nucleated RBC 0.00 Immature Gran % 1 H Nucleated RBC % 0 Sodium 118 L* 119 L* Potassium 4.0 4.1 Chloride 93 L 90 L Carbon Dioxide 16.1 L 19.5 L Anion Gap 9 10 BUN 8 L 9 Creatinine 0.6 0.7 Estim Creat Clear Calc 87.6 75.1 eGFR > 60 > 60 BUN/Creatinine Ratio 13 13 Glucose 80 80 Calculated Osmolality 235 L 238 L Calcium 8.1 L 8.1 L Corrected Calcium 8.3 L Phosphorus 3.8 Magnesium 1.7 Total Bilirubin 0.8 AST 25 ALT 33 Alkaline Phosphatase 75 Troponin I B-Natriuretic Peptide Total Protein 5.9 Albumin 3.7 D Globulin 2.2 L Albumin/Globulin Ratio 1.7 Lipase TSH Free T4 Ur Collection Type Urine Color Urine Clarity Urine pH Ur Specific [place] Urine Protein Urine Glucose (UA) Urine Ketones Urine Blood Urine Nitrite Urine Bilirubin Urine Urobilinogen (Auto) Ur Leukocyte Esterase Urine RBC Urine WBC Ur Squamous Epith Cells Urine Bacteria Ur Culture Indicated? Ur Random Sodium Quality Measures Quality Measures none Assessment & Plan Assessment Current Active Medications: Generic Name Dose Route Start Last Admin Trade Name Freq PRN Reason Stop Dose Admin Acetaminophen 650 mg 07/23/24 20:21 Acetaminophen 325 Mg Tablet PO 08/22/24 20:20 Q6H PRN Fever >100.3 or pain 1-3 Hydrocodone Bitart/Acetaminophen 1 tab 07/24/24 02:44 07/24/24 02:49 Hydrocodone/Apap 5/325 Tablet PO 07/29/24 02:23 1 tab Q6HR PRN Administration PAIN SCALE 7-10 (Severe Albuterol 2 puff 07/23/24 20:21 07/23/24 22:52 Albuterol Inh 8 Gm INH 08/22/24 20:29 2 puff Q4H PRN Administration SHORTNESS OF BREATH Enoxaparin Sodium 40 mg 07/23/24 20:30 07/23/24 21:40 Enoxaparin Sod Inj 40 Mg/0.4 Ml Syringe SC 08/06/24 20:29 40 mg QDAY LYLE Administration Ceftriaxone Sodium/Dextrose 1 gm in 50 mls @ 100 mls/hr 07/23/24 20:01 07/23/24 21:32 Rocephin/D5w 1gm Iv Premix IV 07/30/24 20:00 Infused QDAY LYLE Infusion Ondansetron HCl 4 mg 07/23/24 20:21 Ondansetron Inj 2 Mg/Ml Inj 2 Ml IV 08/22/24 20:20 Q6H PRN NAUSEA OR VOMITING Protocol Plan Kristy Luis is a 58 year-old female with a past medical history of hypothyroidism, hypertension, asthma presenting to ED due to episodes of diarrhea since past 3 to 4 days. Patient stated that she has been having about 5-6 episodes per day, no blood in the stool, denies any travel, no sick contacts. Will admit for asymptomatic hyposmolar hyponatremia and diarrhea. #Hyposmolar hyponatremia Patient has had poor oral intake along with multiple episodes of diarrhea since past couple days. Typically drinks 240 cc water per day. On presentation Na 113, potassium 4.6, bicarb 19, Cr 0.7, serum osm 226, urine sodium 18.6. Urine osmolarity pending. Received NS bolus and half liter 3% saline in ED. ? NS at 60 cc/h for goal sodium of 121 at end of day ? Every 4 hours sodium checks ? Hold hydrochlorothiazide ? Hold levothyroxine, may be etiology of diarrhea which subsequently may be contributing to hyponatremia #History of hypothyroidism TSH 0.08, free t4 1.90. Patient takes 175mcg daily. ? Holding levothyroxine as mentioned above ? Follow-up outpatient and obtain repeat thyroid function tests #Diarrhea Poor oral intake along with multiple episodes of diarrhea since past couple days. No recent hospitalizations or antibiotics. Chem panel showed low TSH of 0.08, elevated free T4 of 1.9 and may be the cause of patient's diarrhea so we will hold levothyroxine at this time as mentioned above. Additionally, given that diarrhea has resolved since holding levothyroxine we will hold off on stool studies. #Hypochloremic metabolic acidosis, resolving In setting of diarrhea, which is since resolved and acidosis improving. ? Continue to monitor #Bacteriuria UA showed leukocyte esterase positive, WBC 9, 1+ ketones, 1+ blood, urine sodium 18.6. Patient is denying any symptoms of dysuria and IV antibiotics discontinued. #History of hypertension ? Hold home hydrochlorothiazide as mentioned above ? BP within range so we will hold off on home antihypertensives for now #History of asthma ? Resumed alubterol inhaler PRN Hospital management: Disposition: telemetry, severe hyponatremia Fluids: NS at 80 cc/hr Diet: clear liquid Lines: PIV DVT prophylaxis: enoxaparin 40 mg SC BID CODE STATUS: full code ----- Plan discussed with attending physician Dr. Obdulio Cruz MD PGY-1 Internal Medicine Attending Provider Attestation/Addendum I reviewed labs, imaging, EKG, home medications and prior available records. Face to face evaluation was performed by me. I have personally examined the patient and discussed assessment and plan with the IM team. I reviewed the resident note and agree with the plan with exceptions as below. Hyponatremia, likely multifactorial in the setting of HCTZ use, hyperthyroidism, acute diarrhea, and poor oral intake Hyperthyroidism Abnormal UA Acute diarrhea Sodium improved to 119 then decreased to 115. Restarted normal saline. Continue to monitor BMP every 4 hours Held levothyroxine. Repeat thyroid function tests in 2 weeks and if back to normal then resume No UTI symptoms. Stopped IV ceftriaxone Her diarrhea improved. Likely in setting of hyperthyroidism. Held levothyroxine. Monitor electrolytes and replete as needed Melatonin as needed for sleep
[2024-07-24] MEDS: cefTRIAXone/D5w 1gm IV premix 1 GM/50 ML BAG IV (09:15)
[2024-07-24] MEDS: ENOXAPARIN SOD INJ 40 MG/0.4 ML SYRINGE SC (09:16)
[2024-07-24] MEDS: ALBUTEROL INH 8 GM 2 PUFF INH (09:41)
[2024-07-24 10:20] LABS: Sodium 119 mMol/L (136-145)
--- NOTE | 2024-07-24 11:12 | PC.SS ---
Kristy Luis is 58-year-old female admitted to [facility] for Hyponatremia. SS conducted bedside contact with the patient to complete initial assessment and to discuss discharge planning.? Patient confirmed demographic information. Patient identifies her dtr Michelle Membreno [phone] as her surrogate decision maker. Patient resides at home with her grandsons. Pt states she is typically able to complete all ADL?s independently; pt has nebulizer, walker and wheelchair. Pts PCP is Dr. Hernandez (last visit was 2 months ago) and her pharmacy of choice is [facility]. DC options discussed, pt wishes to return home. Pts fam will provide transportation upon DC. No further intervention required at this time, social media job titles would be available to address any further concerns. DC Plan: Home Contact: Michelle Membreno [phone] PCP: Lamin
[2024-07-24 13:50] LABS: Sodium 115 mMol/L (136-145)
[2024-07-24] MEDS: SODIUM CHLORIDE 0.9% 1000 ML 1,000 ML 60 ML IV (14:04)
[2024-07-24 16:34] LABS: Sodium 121 mMol/L (136-145)
[2024-07-24] MEDS: MELATONIN 3 MG TABLET PO (20:19)
[2024-07-24 20:39] LABS: Sodium 119 mMol/L (136-145)
[2024-07-25] VITALS (7 sets, daily range): BP systolic 96–123; BP diastolic 66–88; PULSE 67–98; RESP 16–98; TEMP 35.9–36.3; O2SAT 95–98; BMI 28.2
[2024-07-25 00:43] LABS: Sodium 124 mMol/L (136-145)
[2024-07-25] MEDS: SODIUM CHLORIDE 1 GM TABLET 2 GM PO ×3 (01:08→08:24)
[2024-07-25] MEDS: ONDANSETRON INJ 2 MG/ML INJ 2 ML 4 MG IV (01:23)
[2024-07-25] MEDS: HYDROcodone/APAP 5/325 TABLET 1 TAB PO ×2 (05:22→13:22)
[2024-07-25 06:26] LABS: Basophils % (Auto) 0 % (0-2.5); Eosinophils % (Auto) 1 % (0-10); Hematocrit 31.4 % (36.0-46.0); Hemoglobin 11.3 g/dL (12.0-16.0); Immature Granulocytes % (Auto) 1 % (0-0); Immature Granulocytes Auto 0.03 Thou/mm3 (0.00-0.00); Lymphocytes # (Auto) 0.5 Thou/mm3 (1.0-4.8); Lymphocytes % (Auto) 11 % (10-50); Mean Corpuscular Hemoglobin 32.8 pg (25.0-35.0); Mean Corpuscular Volume 91 fL (80-100); Monocytes # (Auto) 0.4 Thou/mm3 (0.0-0.8); Monocytes % (Auto) 7 % (0-12); Neutrophils # (Auto) 4.2 Thou/mm3 (1.8-7.7); Neutrophils % (Auto) 81 % (37-80); Nucleated Red Blood Cell % 0 /100 WBC (0); Platelet Count 140 Thou/mm3 (140-440); RDW Standard Deviation 40.8 fL (36.4-46.3); Red Blood Count 3.45 Miln/mm3 (4.00-5.20); White Blood Count 5.1 Thou/mm3 (3.6-11.0)
[2024-07-25 07:21] LABS: Alanine Aminotransferase 27 U/L (10-49); Albumin, Serum 3.9 gm/dL (3.4-4.8); Albumin/Globulin Ratio 1.9 (1.2-2.2); Alkaline Phosphatase 75 U/L (46-116); Anion Gap 8 (7-16); Aspartate Amino Transferase 17 U/L (0-34); BUN/Creatinine Ratio 11 Ratio (12-20); Bilirubin,Total 0.6 mg/dL (0.3-1.2); Blood Urea Nitrogen 8 mg/dL (9-23); Calcium 8.3 mg/dL (8.3-10.6); Calcium (Corrected) 8.4 mg/dL (8.5-10.1); Carbon Dioxide 20.5 mMol/L (20.0-31.0); Chloride 99 mMol/L (98-107); Creatinine (Component) 0.7 mg/dL (0.6-1.3); Estimated Creatinine Clearance 78.4 mL/min (>60); Globulin 2.1 gm/dL (2.3-3.5); Glucose 95 mg/dL (74-106); Osmolality,Calculated 253 (275-295); Potassium 3.5 mMol/L (3.4-5.1); Sodium 127 mMol/L (136-145); eGFR > 60 See Note
[2024-07-25] MEDS: ENOXAPARIN SOD INJ 40 MG/0.4 ML SYRINGE SC (08:24)
[2024-07-25] MEDS: POTASSIUM CHLORIDE 20 mEq TABCR PO (08:24)
[2024-07-25] MEDS: ALBUTEROL INH 8 GM 2 PUFF INH ×2 (08:39→13:26)
--- NOTE | 2024-07-25 09:12 | PC.SS ---
SS follow up note; Patient is on IV ABX. Sodium being Corrected, Cultures pending. Patient will return back home when medically cleared.
[2024-07-25 09:35] LABS: Sodium 128 mMol/L (136-145)
--- NOTE | 2024-07-25 09:43 | PD.RESPRO ---
Documentation for date of: 07/25/24 Exam Vital Signs Temp Pulse Resp BP Pulse Ox O2 Del Method 96.7 F L 67 17 96/66 97 Room Air 07/25/24 08:00 07/25/24 08:00 07/25/24 08:00 07/25/24 08:00 07/25/24 08:00 07/25/24 08:00 Objective Labs 07/25/24 05:32 07/25/24 09:15 Labs: Laboratory Results - last 24 hr 07/24/24 07/24/24 07/24/24 09:36 13:01 16:14 WBC RBC Hgb Hct MCV MCH MCHC RDW Std Deviation Plt Count Neut % (Auto) Lymph % (Auto) [place] % (Auto) Eos % (Auto) Baso % (Auto) Neut # (Auto) Lymph # (Auto) [place] # (Auto) Eos # (Auto) Baso # (Auto) Immature Gran # (Auto) Absolute Nucleated RBC Immature Gran % Nucleated RBC % Sodium 119 L* 115 L* 121 L Potassium Chloride Carbon Dioxide Anion Gap BUN Creatinine Estim Creat Clear Calc eGFR BUN/Creatinine Ratio Glucose Calculated Osmolality Calcium Corrected Calcium Total Bilirubin AST ALT Alkaline Phosphatase Total Protein Albumin Globulin Albumin/Globulin Ratio 07/24/24 07/25/24 07/25/24 20:05 00:29 05:32 WBC 5.1 RBC 3.45 L Hgb 11.3 L Hct 31.4 L MCV 91 MCH 32.8 MCHC 36.0 RDW Std Deviation 40.8 Plt Count 140 D Neut % (Auto) 81 H Lymph % (Auto) 11 [place] % (Auto) 7 Eos % (Auto) 1 Baso % (Auto) 0 Neut # (Auto) 4.2 Lymph # (Auto) 0.5 L [place] # (Auto) 0.4 Eos # (Auto) 0.0 Baso # (Auto) 0.0 Immature Gran # (Auto) 0.03 H Absolute Nucleated RBC 0.00 Immature Gran % 1 H Nucleated RBC % 0 Sodium 119 L* 124 L 127 L Potassium 3.5 D Chloride 99 Carbon Dioxide 20.5 Anion Gap 8 BUN 8 L Creatinine 0.7 Estim Creat Clear Calc 78.4 eGFR > 60 BUN/Creatinine Ratio 11 L Glucose 95 Calculated Osmolality 253 L Calcium 8.3 Corrected Calcium 8.4 L Total Bilirubin 0.6 AST 17 ALT 27 Alkaline Phosphatase 75 Total Protein 6.0 Albumin 3.9 Globulin 2.1 L Albumin/Globulin Ratio 1.9 07/25/24 09:15 WBC RBC Hgb Hct MCV MCH MCHC RDW Std Deviation Plt Count Neut % (Auto) Lymph % (Auto) [place] % (Auto) Eos % (Auto) Baso % (Auto) Neut # (Auto) Lymph # (Auto) [place] # (Auto) Eos # (Auto) Baso # (Auto) Immature Gran # (Auto) Absolute Nucleated RBC Immature Gran % Nucleated RBC % Sodium 128 L Potassium Chloride Carbon Dioxide Anion Gap BUN Creatinine Estim Creat Clear Calc eGFR BUN/Creatinine Ratio Glucose Calculated Osmolality Calcium Corrected Calcium Total Bilirubin AST ALT Alkaline Phosphatase Total Protein Albumin Globulin Albumin/Globulin Ratio Quality Measures Quality Measures none Assessment & Plan Assessment Current Active Medications: Generic Name Dose Route Start Last Admin Trade Name Freq PRN Reason Stop Dose Admin Acetaminophen 650 mg 07/23/24 20:21 Acetaminophen 325 Mg Tablet PO 08/22/24 20:20 Q6H PRN Fever >100.3 or pain 1-3 Hydrocodone Bitart/Acetaminophen 1 tab 07/24/24 02:44 07/25/24 05:22 Hydrocodone/Apap 5/325 Tablet PO 07/29/24 02:23 1 tab Q6HR PRN Administration PAIN SCALE 7-10 (Severe Albuterol 2 puff 07/23/24 20:21 07/25/24 08:39 Albuterol Inh 8 Gm INH 08/22/24 20:29 2 puff Q4H PRN Administration SHORTNESS OF BREATH Enoxaparin Sodium 40 mg 07/23/24 20:30 07/25/24 08:24 Enoxaparin Sod Inj 40 Mg/0.4 Ml Syringe SC 08/06/24 20:29 40 mg QDAY LYLE Administration Sodium Chloride 1,000 mls @ 35 mls/hr 07/25/24 02:15 Ns IV 08/24/24 02:14 .Q24H LYLE Melatonin 3 mg 07/24/24 21:00 07/24/24 20:19 Melatonin 3 Mg Tablet PO 08/23/24 20:59 3 mg HS LYLE Administration Ondansetron HCl 4 mg 07/23/24 20:21 07/25/24 01:23 Ondansetron Inj 2 Mg/Ml Inj 2 Ml IV 08/22/24 20:20 4 mg Q6H PRN Administration NAUSEA OR VOMITING Protocol Sodium Chloride 2 gm 07/25/24 09:00 07/25/24 08:24 Sodium Chloride 1 Gm Tablet PO 08/24/24 08:59 2 gm BID LYLE Administration
--- NOTE | 2024-07-25 12:02 | PD.RESCONSUL ---
HPI Data of Consult Patient: new to practice Consult date: 07/25/24 Requesting Physician: Marty Rabago MD Admitting Provider: Marty Rabago MD Attending Provider: Marty Rabago MD Primary Care Provider: Blane Elizondo MD Consult Narrative Reason for consult: Hyponatremia History of present illness: Kristy Luis is 58 yr female with PMH of hypothyroidism, hypertension, asthma presenting to ED due to episodes of diarrhea since past 3 to 4 days. Patient stated that she has been having about 5-6 episodes per day, no blood in the stool, denies any travel, no sick contacts. Daughter at bedside stated that patient also drinks minimal water about 240 cc/day. She has had poor oral intake since past few days with even liquids resulting in diarrhea. She denies any vomiting, fever, chills, recent hospitalizations, no new medication changes such as antibiotics. Typically able to conduct ADLs without any issues and uses a walker for support. States that she lives with grandson who assists occasionally. Since episodes of diarrhea have started, patient is also been experiencing some lower extremity stiffness. Stating that her knees will lock and is difficult for her to bend and get up from bed. She needed assistance from family. Patient denies any chest pain, SOB, orthopnea, dysuria. In ED, BP 157/97, HR 95, afebrile. CBC unremarkable. Sodium 113, potassium 4.6, bicarb 19, Cr 0.7, glucose 95, Osmol 226, TSH 0.08, free t4 1.90. UA showed leukocyte esterase positive, WBC 9, 1+ ketones, 1+ blood, urine sodium 18.6. CXR negative for pathology, EKG showed sinus tachy rate 90, Qtc 409. Patient was given NS bolusx1 and half liter 3%saline in ED. Will admit for asymptomatic hyposmolar hyponatremia and diarrhea. 07/25/2024:Over the course of hospitalization patient was found to have severe hypotonic hypovolemic hyponatremia, sodium was corrected with a goal of 4 to 6 mEq in 24 hours and sodium increased from 113on 07/23/2024 to 119 on 07/24/2024. Sodium this morning noted to be 124, patient's normal saline was discontinued and was started on salt tablets 2 g twice daily. Currently patient's sodium 128. Patient's sodium was corrected with goal. Nephrology consulted today to follow-up as patient has previous similar complaint in the past and also for discharge recommendations. At bedside patient has no current complaints, is alert and oriented x 3, patient deemed stable to be discharged on salt tablets 1000 mg twice daily, patient to follow-up in nephrology clinic in 1 to 2 weeks with repeat BMP. cc:: cc: Marty Rabago MD Review of Systems Review of Systems Systems Reviewed: All systems reviewed, normal except as documented Past Medical History Past Medical History NEUROLOGIC: Positive Neurological Disorders and Multiple Sclerosis CARDIAC: Positive Cardiac Disorders and Hypertension RESPIRATORY: Positive Chronic Obstructive Pulmonary Disease (COPD) and Asthma GASTROINTESTINAL: Positive Gastrointestinal Disorders and Gall Bladder Disease REPRODUCTIVE: Positive Previous Pregnancies MUSCULOSKELETAL: Positive Musculoskeletal Disorders, Osteoporosis, Carpal Tunnel Syndrome, Fibromyalgia, Fractures and Degenerative Joint Disease ENDOCRINE: Positive Endocrine Disorders and Hypothyroidism OTHER HISTORY: Positive Hospitalization, Falls and Chicken Pox Family History FAMILY HISTORY: Positive Family Gastrointestinal Problems (sister colon cancer) and Family Cancer (sister colon cancer) Surgical History SURGICAL: Positive Eye Surgery, Abdominal Surgery, Open Reduction Internal Fixation (right shoulder), Hysterectomy and Section Social History SMOKING STATUS: Current every day smoker Exam Vital Signs Temp Pulse Resp BP Pulse Ox O2 Del Method 96.7 F L 67 17 96/66 97 Room Air 07/25/24 08:00 07/25/24 08:00 07/25/24 08:00 07/25/24 08:00 07/25/24 08:00 07/25/24 08:00 Narrative Exam General: AOx3, no acute distress, able to speak full sentences HEENT: NC/AT, mucous membranes moist, bilateral sclera anicteric Cardiovascular: regular rate and rhythm, S1/S2 present, no murmurs appreciated Pulmonary: mild wheezing appreciated bilaterally, no increased work of breathing Abdominal: soft, non-tender, non-distended, no rebound/guarding, normal bowel sounds present Musculoskeletal: normal ROM, no peripheral edema Skin: warm and dry, intact, no rashes Neuro: CN II-XII intact, no focal deficits Results Labs 07/25/24 05:32 07/25/24 17:00 Labs: Short CBC 07/25/24 Range/Units 05:32 WBC 5.1 (3.6-11.0) Thou/mm3 Hgb 11.3 L (12.0-16.0) g/dL Hct 31.4 L (36.0-46.0) % Plt Count 140 D (140-440) Thou/mm3 BMP 07/24/24 07/24/24 07/24/24 13:01 16:14 20:05 Sodium 115 L* 121 L 119 L* Potassium Chloride Carbon Dioxide BUN Creatinine Glucose Calcium 07/25/24 07/25/24 07/25/24 00:29 05:32 09:15 Sodium 124 L 127 L 128 L Potassium 3.5 D Chloride 99 Carbon Dioxide 20.5 BUN 8 L Creatinine 0.7 Glucose 95 Calcium 8.3 Liver Function 07/25/24 Range/Units 05:32 Total Bilirubin 0.6 (0.3-1.2) mg/dL AST 17 (0-34) U/L ALT 27 (10-49) U/L Alkaline Phosphatase 75 (46-116) U/L Albumin 3.9 (3.4-4.8) gm/dL Quality Measures Quality Measures none Medications Home Medications and Allergies Home Medications ?Medication ?Instructions ?Recorded ?Confirmed ?Type montelukast 10 mg tablet 1 tab PO HS ##0 09/01/16 04/15/22 History (Singulair) lisinopril 10 mg tablet 20 mg PO QDAY 05/02/17 04/15/22 History albuterol sulfate 90 mcg/actuation 1 puff inhalation Q6H PRN 03/29/19 04/15/22 History aerosol inhaler Shortness Of Breath fluticasone furoate 200 1 inh inhalation QDAY 03/29/19 04/15/22 History mcg/actuation blister powder for inhalation (Arnuity Ellipta) spironolactone 50 mg tablet 50 mg PO QDAY 06/26/19 04/15/22 History ibuprofen 800 mg tablet 800 mg PO BID 04/14/22 04/15/22 History loratadine 10 mg tablet 10 mg PO DAILY 04/14/22 04/15/22 History Allergies Allergy/AdvReac Type Severity Reaction Status Date / Time adhesive tape Allergy Severe ANY Verified 07/23/24 12:13 MEDICAL TAPE / RASH prednisone Allergy Severe CRAZY Verified 07/23/24 12:13 Penicillins Allergy Mild Rash Verified 07/23/24 12:13 aspirin Allergy Unknown Verified 07/23/24 12:13 Sulfa (Sulfonamide Allergy Unknown Verified 07/23/24 12:13 Antibiotics) sulfacetamide Allergy Unknown Verified 07/23/24 12:13 Visit Medications Acetaminophen (Acetaminophen 325 Mg Tablet) 650 mg PO Q6H PRN PRN Reason: Fever >100.3 or pain 1-3 Stop: 08/22/24 20:20 Hydrocodone Bitart/Acetaminophen (Hydrocodone/Apap 5/325 Tablet) 1 tab PO Q6HR PRN PRN Reason: PAIN SCALE 7-10 (Severe Stop: 07/29/24 02:23 Last Admin: 07/25/24 05:22 Dose: 1 tab Albuterol (Albuterol Inh 8 Gm) 2 puff INH Q4H PRN PRN Reason: SHORTNESS OF BREATH Stop: 08/22/24 20:29 Last Admin: 07/25/24 08:39 Dose: 2 puff Enoxaparin Sodium (Enoxaparin Sod Inj 40 Mg/0.4 Ml Syringe) 40 mg SC QDAY LYLE Stop: 08/06/24 20:29 Last Admin: 07/25/24 08:24 Dose: 40 mg Sodium Chloride (Ns) 1,000 mls @ 35 mls/hr IV .Q24H LYLE Stop: 08/24/24 02:14 Melatonin (Melatonin 3 Mg Tablet) 3 mg PO HS LYLE Stop: 08/23/24 20:59 Last Admin: 07/24/24 20:19 Dose: 3 mg Ondansetron HCl (Ondansetron Inj 2 Mg/Ml Inj 2 Ml) 4 mg IV Q6H PRN; Protocol PRN Reason: NAUSEA OR VOMITING Stop: 08/22/24 20:20 Last Admin: 07/25/24 01:23 Dose: 4 mg Sodium Chloride (Sodium Chloride 1 Gm Tablet) 2 gm PO BID LYLE Stop: 08/24/24 08:59 Last Admin: 07/25/24 08:24 Dose: 2 gm Discontinued Medications Hydrocodone Bitart/Acetaminophen (Hydrocodone/Apap 5/325 Tablet) 1 tab PO Q6HR PRN PRN Reason: PAIN Stop: 07/29/24 02:23 Sodium Chloride (Ns) 1,000 mls @ 999 mls/hr IV .Q1H1M ONE Stop: 07/23/24 19:37 Last Infusion: 07/23/24 20:19 Dose: Infused Sodium Chloride 500 ml/ IV (Miscellaneous Supplies) 500 mls @ 30 mls/hr IV X1 ONE Stop: 07/24/24 11:16 Last Infusion: 07/23/24 20:19 Dose: 0 mls/hr Ceftriaxone Sodium/Dextrose (Rocephin/D5w 1gm Iv Premix) 1 gm in 50 mls @ 100 mls/hr IV QDAY LYLE Stop: 07/30/24 20:00 Last Admin: 07/24/24 09:15 Dose: 100 mls/hr Sodium Chloride (Ns) 1,000 mls @ 70 mls/hr IV .[id number] LYLE Stop: 08/22/24 21:44 Last Infusion: 07/24/24 03:38 Dose: Infused Sodium Chloride (Ns) 1,000 mls @ 60 mls/hr IV .[id number] LYLE Stop: 08/23/24 13:53 Last Infusion: 07/24/24 17:04 Dose: 30 mls/hr Sodium Chloride (Ns) 1,000 mls @ 30 mls/hr IV .Q24H LYLE Stop: 08/23/24 16:49 Last Admin: 07/24/24 17:06 Dose: Not Given Sodium Chloride (Ns) 1,000 mls @ 75 mls/hr IV .[id number] [facility] Stop: 08/24/24 00:33 Ibuprofen (Ibuprofen Tab 400 Mg Tablet) 800 mg PO Q6HR ONE Stop: 07/24/24 01:06 Last Admin: 07/24/24 01:18 Dose: Not Given Ibuprofen (Ibuprofen Tab 400 Mg Tablet) 800 mg PO X1 ONE Stop: 07/24/24 01:12 Last Admin: 07/24/24 01:16 Dose: 800 mg Potassium Chloride (Potassium Chloride 20 Meq Tabcr) 20 meq PO X1 ONE Stop: 07/25/24 07:58 Last Admin: 07/25/24 08:24 Dose: 20 meq Sodium Chloride (Sodium Chloride 1 Gm Tablet) 2 gm PO QID LYLE Stop: 08/24/24 00:44 Last Admin: 07/25/24 05:09 Dose: 2 gm Assessment & Plan Plan Assessment and plan: Summary: Kristy Luis is a 58 year-old female with a past medical history of hypothyroidism, hypertension, asthma presenting to ED due to episodes of diarrhea since past 3 to 4 days. Patient stated that she has been having about 5-6 episodes per day, no blood in the stool, denies any travel, no sick contacts. Will admit for asymptomatic hyposmolar hyponatremia and diarrhea. # Hypovolemic Hyposmolar hyponatremia Patient had poor oral intake along with multiple episodes of diarrhea since past couple days. Typically drinks 240 cc water per day. On presentation Na 113, potassium 4.6, bicarb 19, Cr 0.7, serum osm 226, urine sodium 18.6. Urine osmolarity pending. Received NS bolus and half liter 3% saline in ED. Over the course of hospitalization patient was found to have severe hypotonic hypovolemic hyponatremia, sodium was corrected with a goal of 4 to 6 mEq in 24 hours and sodium increased from 113on 07/23/2024 to 119 on 07/24/2024. Sodium this morning noted to be 124, patient's normal saline was discontinued and was started on salt tablets 2 g twice daily. Currently patient's sodium 128. Recommendations: ?Continue salt tablets 1 g twice daily repeat BMP in 1 week and follow-up outpatient with nephrology ?Hold hydrochlorothiazide ?Okay to continue lisinopril ?Patient is stable for discharge from nephrology standpoint #History of hypothyroidism #Diarrhea #Bacteriuria #History of hypertension #History of asthma Case discussed with Attending Dr. Bell. Karina Parr PGY1 Disclaimer: This note was dictated by speech recognition. Minor errors in ophthalmic medical technician may be present due to voice recognition software. Attending Provider Attestation/Addendum Pt is seen and examined. Labs and investigations are reviewed. Agree witth assessment and plan by resident. agree with findings. George Bell MD
[2024-07-25 13:33] LABS: Sodium 128 mMol/L (136-145)
--- NOTE | 2024-07-25 15:49 | PC.CC ---
Addendum entered by Kristen Ames RN 07/26/24 08:31: SOC is 07/28 Addendum entered by Kristen Ames RN 07/26/24 08:31: Pt booked with [facility] Note: Pt entered into [facility], no HH agency preference documented
--- NOTE | 2024-07-25 16:11 | ESDS_ITS ---
Planned Discharge Date 07/25/24 DS: Providers Provider Date of admission: 07/23/24 19:55 Primary care physician: Blane Elizondo MD Admitting Provider: Marty Rabago MD Attending Provider on Admission: Rahul Garcia DO Consults: 07/23/24 20:28 Referral Physical Therapy Routine Comment: Physician Instructions: 07/25/24 00:47 Referral Speech Therapy Routine Comment: 07/25/24 10:42 Consult to Nephrology Routine Comment: Hyponatremia Consulting Provider: George Bell Attending Provider on DC: Anjel Cruz MD Discharging Provider: Anjel Cruz MD DS: Diagnosis Problem List Completed Was Problem List Reviewed/Reconciled?: Yes Hospital Course Hospital Course Hospital course: Kristy Luis is a 58-year-old female with a past medical history of hypothyroidism, hypertension, COPD/asthma, current smoker who presented on 07/23 with 3 to 4 days of nonbloody diarrhea. Reports 5-6 episodes per day, denied recent travel or sick contacts. Associated poor oral intake, including liquids, T9 emesis, fever, chills, recent hospitalizations, or any medication changes. Found to have severe hypotonic hyponatremia of 113, serum osm 226, NAGMA with H CO3 19.4 and AG 11, hyperthyroid with TSH 0.08 and free T4 of 1.9. She was started on normal saline with q4h sodium checks, noted to have home rx of hydrochlorothiazide that was help, and levothyroxine 175 mcg also held. During hospitalizatoin, diarrhea improved after holding levothyroxine and suspect that hyperthyroid state may be cause of diarrhea. Thus, given that symptoms improved stool studies were cancelled. Additionally, patient denied any urinary symptoms including dysuria, frequency, urgency, hematuria so ceftriaxone was also discontinued. Sodium responded to normal saline and increased from 113 on admission to 119 within 14 hours so IVF were stopped. Following day, sodium decreased back down to 115 and NS was restarted with goal sodium of 124. Following day, sodium increased to 127 and fluids were again stopped and salt tabs were started. Nephrology was consulted and recommended to be discharged with 1 g salt tablets twice daily and to follow-up at outpatient clinic within two weeks with repeat BMP. Otherwise, patient instructed to hold her levothyroxine until she follows- up with her PCP and/or chief information security officer and to stop taking her hydrochlorothiazide. Diagnoses during admission: #Hyposmolar hyponatremia #History of hypothyroidism #Diarrhea #Hypochloremic metabolic acidosis, resolving #Bacteriuria #History of hypertension #History of asthma Discharge instructions: ? Continue sodium chloride tablets 1 g twice per day until you follow-up with mental health aides teacher, Dr. Bell ? Follow-up with mental health aides teacher, Dr. Bell, within two weeks of discharge on 08/09 at 8 AM ? STOP taking hydrochlorothiazide ? HOLD your levothyroxine until you follow-up with your PCP and/or chief information security officer for further instructions ? Continue taking all other home medications as prescribed ? Follow-up with PCP within 1-2 weeks of discharge ? If you do not have a PCP, you can follow-up at the [facility] (you can call [phone] to make an appointment) ? If you wish to follow-up with Dr. Cruz, schedule appointment on Tuesday afternoons ? Return to ED if symptoms worsen or recur Time Spent with Patient Time attestation: Total time spent providing and/or coordinating discharge services: Time spent: Greater than 30 minutes Home Health Home Health Referral Orders: 07/25/24 15:44 Home Health Referral Routine Reason For Exam: debility Home-Bound The patient must either because of illness or injury, need the aid of supportive devices such as crutches, canes, wheelchairs, and walkers; the use of special transportation; or the assistance of another person in order to leave their place of residence; OR have a condition such that leaving his or her home is medically contraindicated. In addition, the patient also meets the following criteria: patient is normally unable to leave the home and leaving home requires considerable taxing effort. Addendum to Home Health Certification Practitioner's Certification: I certify that the patient has been under my care in the hospital and the care of attending physician (see below). We had a [id number] encounter on (see date below). My clinical findings indicate that the patient is home bound per the above criteria and the Home Health Services noted in these orders are medically necessary. The primary reason for the [id number] encounter is related to the fact that the patient requires home health services. Date Certifying [id number] Physician Encounter: 07/23/24 Physician's Name who will Assume Oversight for Services: Blane Elizondo Physician's Phone No.who will Assume Oversight for Service: FARM [employer]ER - Community Resources: No PT to Evaluate: Yes PT to evaluate and provide a treatmnet plan to increase patient's mobility and strength. Wound Care: No IV Therapy: No Discontinue PICC Line Once Treatment Complete: No RN Safety Evaluation: Yes RN to evaluate and create a plan of care that will produce positive outcomes. Palliative Treatment: No Palliative treatment and evaluate the need for hospice. Home Health Aide - Personal Care: No Home Health Aide to assist with any ADL's. Exam Vital Signs Temp Pulse Resp BP Pulse Ox O2 Del Method 97.4 F 86 20 123/88 H 98 Room Air 07/25/24 12:00 07/25/24 13:26 07/25/24 13:26 07/25/24 12:00 07/25/24 13:07/25/24 12:00 Narrative Exam General: AOx3, no acute distress, able to speak full sentences HEENT: NC/AT, mucous membranes moist, bilateral sclera anicteric Cardiovascular: regular rate and rhythm, S1/S2 present, no murmurs appreciated Pulmonary: mild wheezing appreciated bilaterally, no increased work of breathing Abdominal: soft, non-tender, non-distended, no rebound/guarding, normal bowel sounds present Musculoskeletal: normal ROM, no peripheral edema Skin: warm and dry, intact, no rashes Neuro: CN II-XII intact, no focal deficits Discharge Plan Plan Patient Disposition: Home w/HOME HEALTH Care Plan Goals: ? Continue sodium chloride tablets 1 g twice per day until you follow-up with mental health aides teacher, Dr. Bell ? Follow-up with mental health aides teacher, Dr. Bell, within two weeks of discharge on 08/09 at 8 AM ? STOP taking hydrochlorothiazide ? HOLD your levothyroxine until you follow-up with your PCP and/or chief information security officer for further instructions ? Continue taking all other home medications as prescribed ? Follow-up with PCP within 1-2 weeks of discharge ? If you do not have a PCP, you can follow-up at the [facility] (you can call [phone] to make an appointment) ? If you wish to follow-up with Dr. Cruz, schedule appointment on Tuesday afternoons ? Return to ED if symptoms worsen or recur Prescriptions/Referrals Prescriptions/Med Rec: New sodium chloride 1,000 mg Tablet,Soluble 1,000 mg PO BID 30 Days Qty: 60 0RF Continued lisinopril 10 mg tablet 20 mg PO QDAY montelukast [Singulair] 10 MG tablet 1 tab PO HS Qty: 0 albuterol sulfate 90 mcg/actuation Hfa Aerosol Inhaler 1 puff INHALATION Q6H PRN (Reason: Shortness Of Breath) Arnuity Ellipta 200 mcg/actuation Blister With Device 1 inh INHALATION QDAY spironolactone 50 mg Tablet 50 mg PO QDAY loratadine 10 mg tablet 10 mg PO DAILY Patient Comments: TAKE ONE TABLET BY MOUTH EVERY DAY FOR ALLERGY ibuprofen 800 mg tablet 800 mg PO BID Held levothyroxine 175 mcg Tablet 175 mcg PO ACBR Qty: 30 0RF Hold Instructions: Resume on 09/26/24. Referrals: Blane Elizondo MD [Primary Care Provider] - George Bell MD [Physician] - 08/09/24 8:00 am (Follow-up in office in 1 to 2 weeks, call office to make appointment. Obtain BMP before appointment. Continue salt tablet 1 g p.o. twice daily) Patient/Caregiver Discharge Instructions Discharge Activity: as per physical therapy and activity as tolerated Education Materials: Asthma and COPD, Hyponatremia Dc Print Language: Nepalese Stand Alone Forms: Leisa Award Info., Patient Portal Info Letter Discharge Order Discharge Orders: Discharge (Routine); Ordered 07/25/24 Ordered By: Anjel Cruz Quality Discharge Quality Measures VTE prophylaxis Attestestation Attestation I have discussed and was present for the essential components of the discharge history, physical examination, diagnosis, and discharge treatment plan with the resident. I agree with the patient's discharge care as documented by the resident and amended herein by me. Marc Garcia DO. The patient understood all discharge instructions, all questions were answered satisfactorily. The patient was instructed to return to the Emergency Department is symptoms worsened or persisted. Patient was stable, afebrile and tolerating p.o. intake at time of discharge home. Although this document has been carefully reviewed, there may still be some phonetic and other typographical errors. These errors are purely grammatical due to imperfections in the software program and should not be construed in any way to compromise the substance of the patient's medical care during this visit.
[2024-07-25 17:17] LABS: Sodium 127 mMol/L (136-145)
[2024-07-30 07:07] LABS: Osmolality, Serum* 238 mOsm/kg (278-305); Osmolality, Urine* 155 mOsm/kg (50-1200)
== END 2024-07-25 18:20 | disposition home health service (06) | DRG 426 ==
LOC: SERX 18:26 → SERHOLD 20:06 → S2NX 07-24 06:06
PROVIDERS: Nurse Practitioner Primary Care; Admitting Provider Internal Medicine; Emergency Provider Emergency Medicine; PCP Family Medicine; Visit Provider Student in an Organized Health Care Education/Training Program
DX: E87.1 Hypo-osmolality and hyponatremia (principal); M79.7 Fibromyalgia; I10 Essential (primary) hypertension; G35 Multiple sclerosis; E03.9 Hypothyroidism, unspecified; M81.0 Age-related osteoporosis without current pathological fracture; F17.200 Nicotine dependence, unspecified, uncomplicated; R19.7 Diarrhea, unspecified; E87.20 Acidosis, unspecified; N39.0 Urinary tract infection, site not specified; R53.81 Other malaise; E05.90 Thyrotoxicosis, unspecified without thyrotoxic crisis or storm; J44.89 Other specified chronic obstructive pulmonary disease; E86.1 Hypovolemia; E87.8 Other disorders of electrolyte and fluid balance, not elsewhere classified; Z90.49 Acquired absence of other specified parts of digestive tract; Z88.0 Allergy status to penicillin; Z88.2 Allergy status to sulfonamides; Z88.8 Allergy status to other drugs, medicaments and biological substances; Z79.899 Other long term (current) drug therapy; Z79.890 Hormone replacement therapy
CPT/HCPCS: 36415; 71045; 80048; 80053; 81001; 83690; 83735; 83880; 83930; 83935; 84100; 84295; 84300; 84439; 84443; 84484; 85025; 87015; 87045; 87046; 87086; 87205; 87493; 87899; 92610; 93005; 94640; 94664; 96361; 96365; 96372; 97162; 99285; J0696; J1650; J2405; J7030; J7131; A9270

== ENCOUNTER → 2024-08-16 | Outpatient (BNVA) | payer MEDICAID, SELFPAY | END | disposition home or self-care (01) | PROVIDERS: PCP Nurse Practitioner Family; Referring Provider Nurse Practitioner Family; Visit Provider Nurse Practitioner Family | DX: E87.1 Hypo-osmolality and hyponatremia (principal); I10 Essential (primary) hypertension; E03.9 Hypothyroidism, unspecified; J44.9 Chronic obstructive pulmonary disease, unspecified; K76.0 Fatty (change of) liver, not elsewhere classified; I05.0 Rheumatic mitral stenosis; R60.9 Edema, unspecified | CPT/HCPCS: 99215 ==

== ENCOUNTER → 2024-08-16 | Outpatient (CLI) | payer MEDICAID, SELFPAY ==
--- NOTE | 2024-08-16 16:32 | XR_ITS ---
Examination: PA lateral chest 2 views TECHNIQUE: Upright PA and lateral chest 2 views Date and time: July 27, 2024 1649 hours Comparison July 23, 2024 INDICATIONS: Shortness of breath leg edema one month FINDINGS: Normal heart size Mild probable scarring in the right middle lobe No pulmonary edema Subsegmental atelectasis left base Ununited old right humeral neck fracture IMPRESSION: No lobar pneumonia or pulmonary edema
== END | disposition home or self-care (01) ==
LOC: CDIM 16:20
PROVIDERS: Referring Provider Nurse Practitioner Family; Visit Provider Nurse Practitioner Family
DX: R06.02 Shortness of breath (principal)
CPT/HCPCS: 71046

== ENCOUNTER → 2024-08-17 | Outpatient (BNVA) | payer MEDICAID, SELFPAY | END | disposition home or self-care (01) | PROVIDERS: PCP Internal Medicine; Referring Provider Internal Medicine; Visit Provider Internal Medicine | DX: J44.9 Chronic obstructive pulmonary disease, unspecified (principal); E87.1 Hypo-osmolality and hyponatremia; I10 Essential (primary) hypertension; E03.9 Hypothyroidism, unspecified; K76.0 Fatty (change of) liver, not elsewhere classified; G35 Multiple sclerosis; R60.9 Edema, unspecified | CPT/HCPCS: 99204 ==

== ENCOUNTER → 2024-08-27 | Outpatient (BNVA) | payer MEDICAID, SELFPAY | END | disposition home or self-care (01) | PROVIDERS: PCP Nurse Practitioner Family; Referring Provider Nurse Practitioner Family; Visit Provider Nurse Practitioner Family | DX: Z71.2 Person consulting for explanation of examination or test findings (principal); F17.200 Nicotine dependence, unspecified, uncomplicated; E87.1 Hypo-osmolality and hyponatremia; E03.9 Hypothyroidism, unspecified; R06.02 Shortness of breath; R53.83 Other fatigue | CPT/HCPCS: 99212; G0463 ==

== ENCOUNTER 2024-09-02 18:45 | Inpatient (IN) | payer MEDICAID, SELFPAY ==
[2024-09-02] VITALS (13 sets, daily range): BP systolic 88–147; BP diastolic 58–85; PULSE 90–126; RESP 14–76; TEMP 36.4–38.7; O2SAT 91–97; BMI 25.6
--- NOTE | 2024-09-02 18:48 | EDNOTE_ITS ---
ED SOB =RME/HPI General Chief Complaint: Shortness of Breath/Dyspnea Stated Complaint: SOB Time Seen by Provider: 09/02/24 19:07 Arrival date/time: 09/02/24 18:45 RME / HPI RME / HPI Narrative: This section includes all my notes and documentations, including HPI, PE, and ED course. Isaak Myers MD HPI: 59yo female with a history of COPD, HTN BIBA with about a week of worsening cough, productive cough, purulent sputum, and dyspnea. No other complaints. ROS: All negative except as documented in HPI. Physical Exam: General: Alert and oriented. In moderate respiratory distress. Fever noted. Eyes: Conjunctivae and lids clear. ENT: No nasal congestion. Neck: Supple. Heart: RRR. Lungs: Moderate respiratory distress. Minimal air movement with wheezing. Abdomen: Soft and nontender. Normal bowel sounds. No distension. No rebound or guarding. Back: No CVA tenderness. Legs: Severe edema of the right lower extremity. Skin: Warm and dry. Neuro: Alert and oriented X 3. I reviewed EMS notes. I reviewed all diagnostic test results. My interpretation of the EKG is sinus tachycardia with nonspecific ST-T changes. My interpretation of the chest x-ray is infiltrates. My review of the US venous doppler report is no DVT. My review of the CT angio of the chest report is pulmonary embolism and pneumonia. Blood tests remarkable for WBC 14.3, Lactate 2.2, D-Dimer 2940, Potassium 2.5, Magnesium 1.5. COVID/Influenza negative. Urinalysis remarkable for positive leukocyte esterase, 4 RBC, 27 WBC, and bacteria. At this point, diagnoses include Pulmonary embolism, Hypokalemia, Sepsis, Pneumonia, UTI (urinary tract infection), COPD exacerbation, and Hypomagnesemia. Treatment here included Vancomycin, Benadryl, Magnesium, NS, Rocephin, Tylenol, Toradol, Potassium, Solumedrol, Xopenex, and Lovenox. No significant improvement noted. I discussed the case with our hospitalist. About the presentation and exam and diagnostics and treatments here. And need of further care in the hospital. Will accept the patient. Isaak Myers MD Related Data Home Medications ?Medication ?Instructions ?Recorded ?Confirmed montelukast 10 mg tablet 1 tab PO HS ##0 09/01/1612/13 (Singulair) lisinopril 10 mg tablet 20 mg PO QDAY 05/02/1708/27 albuterol sulfate 90 mcg/actuation 1 puff inhalation Q 6H PRN 03/29/19 08/27/24 aerosol inhaler Shortness Of Breath fluticasone furoate 200 1 inh inhalation QDAY 08/27/24 mcg/actuation blister powder for inhalation (Arnuity Ellipta) ibuprofen 800 mg tablet 800 mg PO BID 04/14/2208/27 Previous Rx's ?Medication ?Instructions ?Recorded ergocalciferol (vitamin D2) 1,250 50,000 unit PO QWEEK 3 months #12 08/17/24 mcg (50,000 unit) capsule (Vitamin caps D2) sodium chloride 1,000 mg soluble 1,000 mg PO BID 10 da ys #20 tabs 08/27/24 tablet levothyroxine 150 mcg tablet 150 mcg PO QDAY #30 tabs 08/28/24 spironolactone 50 mg tablet 50 mg PO QDAY #30 tabs 01/12 Allergies Allergy/AdvReac Type Severity Reaction Status Date / Time adhesive tape Allergy Severe ANY Verified 09/02/24 18:50 MEDICAL TAPE / RASH prednisone Allergy Severe CRAZY Verified 09/02/24 18:50 Penicillins Allergy Mild Rash Verified 09/02/24 18:50 aspirin Allergy Unknown Verified 09/02/24 18:50 Sulfa (Sulfonamide Allergy Unknown Verified 09/02/24 18:50 Antibiotics) sulfacetamide Allergy Unknown Verified 09/02/24 18:50 Review of Systems Review of Systems Systems Reviewed: All systems reviewed, normal except as documented ED Exam Narrative Physical exam: As noted in HPI. Course Course Course Narrative: CXR is ordered for determining the etiology of shortness of breath. 1934: Sepsis alert initiated. Orders made at this time are congruent with ED Adult Sepsis Order List. Re-evaluation is to be completed. 1956: NS IVF started. 2200: Sepsis reassessment performed consisting of lab review, vitals, physical exam including auscultation of heart, lungs, and visual evaluation of capillary refills, mucosal membranes and extremities. Patient met SIRS criteria. Lactic, WBC, and pro shirin are all elevated, outside of the normal range. Reassessment complete, patient is septic. Quality Measures Possible source: pulmonary Blood cultures ordered: yes Antibiotic ordered: Yes Pertinent labs: 09/02/24 09/02/24 19:09 22:30 Lactic Acid 2.2 H mMol/L 2.7 H mMol/L (0.4-2.0) (0.4-2.0) Procalcitonin 1.97 H ng/ml (0.0-0.49) sepsis Orders Category Date Time Status Admit to Inpatient Status Routine Admission 09/03/24 00:00 Active Patient Condition Routine Admission 09/03/24 00:00 Ordered Airborne precautions NOW Care 09/03/24 00:54 Active Bedside COVID-19 Antigen Test NOW Care 09/02/24 18:50 Active Bedside Influenza A&B Antigen Test NOW Care 09/02/24 18:50 Completed COVID-19 Screening Questionnaire NOW Care 09/02/24 21:03 Active COVID-19 Screening Questionnaire NOW Care 09/02/24 23:[address] Screening NOW Care 09/02/24 18:52 Active Decision to Admit X1 Care 09/02/24 23:18 Completed EKG (ED ONLY) *Do not use* NOW Care 09/02/24 18:52 Completed Isolation Precaution QSHIFT Care 09/03/24 00:54 Active Miscellaneous Nursing Order NOW Care 09/03/24 00:11 Active Notify provider NEEDED Care 09/03/24 00:00 Active Nurse Swallow Screen X1 Care 09/03/24 00:11 Active Obtain weight daily Care 09/03/24 00:01 Active SVN NEEDED Care 09/03/24 00:06 Active Saline [Insert IV] NOW Care 09/02/24 18:50 Active Straight [In and Out Catheter] X1 Care 09/02/24 18:50 Completed Strict Intake and Output Routine Care 09/03/24 00:01 Ordered CA echo doppler complete Routine Exams 09/03/24 00:[address] angio chest Stat Exams 09/02/24 18:52 Completed EKG (ED Only) Stat Exams 09/02/24 18:52 Ordered US venous doppler LE BI Stat Exams 09/02/24 19:42 Completed XR chest 1V portable Stat Exams 09/02/24 18:53 Completed ABG [Arterial Blood Gas] Stat Lab 09/02/24 20:00 Completed ABG [Arterial Blood Gas] Stat Lab 09/02/24 20:59 Completed BNP [B-Type Natriuretic Peptide] Stat Lab 09/02/24 19:09 Completed Bilirubin,Direct Stat Lab 09/02/24 19:09 Completed Blood Culture (Lab) Stat Lab 09/02/24 19:14 Received CBC AM DRAW Lab 09/03/24 05:00 Ordered CBC AM DRAW Lab 09/04/24 05:00 Ordered CBC AM DRAW Lab 09/05/24 05:00 Ordered CBC Stat Lab 09/02/24 19:09 Completed CMP [Comprehensive Metabolic Panel] Stat Lab 09/02/24 19:09 Completed CRP [C-Reactive Protein] Stat Lab 09/02/24 19:09 Completed Cocci Serology IgM with reflex to IgG [Cocci Serology, Lab 09/03/24 05:00 Ordered Unk History] Routine Comprehensive Metabolic Panel AM DRAW Lab 09/03/24 05:00 Ordered Comprehensive Metabolic Panel AM DRAW Lab 09/04/24 05:00 Ordered Comprehensive Metabolic Panel AM DRAW Lab 09/05/24 05:00 Ordered Cult AFB Sendout- Sputum* Q8H Lab 09/03/24 00:56 Received Cult AFB Sendout- Sputum* Q8H Lab 09/03/24 08:15 Ordered Cult AFB Sendout- Sputum* Q8H Lab 09/03/24 16:15 Ordered D-Dimer Stat Lab 09/02/24 19:09 Completed ESR [Sed Rate (ESR)] Stat Lab 09/02/24 19:09 Completed Free T4 (Free Thyroxine) Stat Lab 09/02/24 19:09 Completed Lactate (Lactic Acid) Stat Lab 09/02/24 19:09 Completed Lactic Acid [Lactate (Lactic Acid)] Routine Lab 09/03/24 02:00 Ordered Lactic Acid, 3 HR Stat Lab 09/02/24 22:30 Completed Magnesium AM DRAW Lab 09/03/24 05:00 Ordered Magnesium AM DRAW Lab 09/04/24 05:00 Ordered Magnesium AM DRAW Lab 09/05/24 05:00 Ordered Magnesium Routine Lab 09/03/24 00:32 Completed Magnesium Stat Lab 09/02/24 19:09 Completed PT [Prothrombin Time with INR] Stat Lab 09/02/24 19:09 Completed PT [Prothrombin Time with INR] Stat Lab 09/03/24 07:00 Ordered PTT [Partial Thromboplastin Time] Stat Lab 09/02/24 19:09 Completed PTT [Partial Thromboplastin Time] Stat Lab 09/03/24 07:00 Ordered Partial Thromboplastin Time AM DRAW Lab 09/04/24 05:00 Ordered Partial Thromboplastin Time AM DRAW Lab 09/05/24 05:00 Ordered Potassium Urgent Lab 09/03/24 00:32 Completed Procalcitonin Stat Lab 09/02/24 19:09 Completed Prothrombin Time with INR AM DRAW Lab 09/04/24 05:00 Ordered Prothrombin Time with INR AM DRAW Lab 09/05/24 05:00 Ordered Prothrombin Time with INR AM DRAW Lab 09/05/24 05:00 Ordered Prothrombin Time with INR AM DRAW Lab 09/06/24 05:00 Ordered Quantiferon-TB* Routine Lab 09/03/24 05:00 Ordered TSH [Thyroid Stimulating Hormone] Stat Lab 09/02/24 19:09 Completed Troponin I Stat Lab 09/02/24 19:09 Completed UA, C/S IF [Urinalysis, C/S if Indicated] Stat Lab 09/02/24 19:40 Completed Urine Culture Stat Lab 09/02/24 19:40 Received Acetaminophen Ivpb [Ofirmev Inj] Med 09/02/24 20:28 Discontinued 1,000 mg in 100 ml IV X1 Acetaminophen Tab [Tylenol Tab] Med 09/03/24 00:00 Active 650 mg PO Q6H PRN Albuterol/Ipratr Rt Suzi [Duoneb Rt Suzi] Med 09/03/24 01:00 Active 3 ml INH Q6HRRT Azithromycin Po [Zithromax PO] Med 09/03/24 00:10 Active 500 mg PO DAILY@2100 DiphenhydrAMINE INJ [Benadryl Inj] Med 09/02/24 18:50 Discontinued 50 mg IVP X1 STA Enoxaparin [Lovenox] Med 09/02/24 23:13 Discontinued 60 mg SC X1 ONE HYDROcodone*/APAP 5/325 [[place] 5/325] Med 09/03/24 00:00 Active 1 tab PO Q4HR PRN Heparin/D5w 25K 250 ML Ivpb [Heparin in D5w Ivpb] Med 09/03/24 00:15 Active 25,000 unit in 250 ml IV 18 units/kg/hr KCL 10% Liq UDC 15 ML Med 09/02/24 20:56 Discontinued 40 meq PO X1 ONE Ketorolac Inj [Toradol Inj] Med 09/02/24 20:28 Discontinued 30 mg IVP X1 ONE Levalbuterol Rt [Xopenex Rt Suzi] Med 09/02/24 19:21 Discontinued 1.25 mg INH .STK-MED ONE Levalbuterol Rt [Xopenex Rt Suzi] Med 09/02/24 18:50 Discontinued 2.5 mg INH X1 ONE Magnesium Sulfate 2 GM Ivpb [Magnesium Sulfate Ivpb] Med 09/02/24 18:50 Discontinued 2 gm in 50 ml IV X1 MethylPREDNISolone. [SoluMEDROL Inj] Med 09/03/24 09:00 Active 40 mg IVP QDAY MethylPREDNISolone.* [SoluMEDROL Inj] Med 09/02/24 18:50 Discontinued 125 mg IVP X1 ONE Ondansetron Inj [Zofran Inj] Med 09/03/24 00:00 Active 4 mg IVP Q6H PRN POTASSIUM CHL 10 mEq IVPB [Kcl Ivpb] Med 09/03/24 01:07 Active 10 meq in 100 ml IV Q1H POTASSIUM CHL 10 mEq IVPB [Kcl Ivpb] Med 09/02/24 20:56 Discontinued 10 meq in 100 ml IV X1 Pantoprazole [Protonix] Med 09/03/24 09:00 Active 40 mg PO QDAY Sodium Chloride 0.9% 1000 ml [Ns] 1,000 ml Med 09/02/24 19:28 Discontinued IV 999 mls/hr Sodium Chloride 0.9% 1000 ml [Ns] 1,000 ml Med 09/02/24 20:28 Discontinued IV 999 mls/hr Sodium Chloride Rt Suzi 0.9% [NS Rt Suzi 0.9%] Med 09/02/24 18:50 Active 9 ml INH PRN PRN Sodium Chloride Rt Suzi 10% [NS Rt Suzi 10%] Med 09/03/24 00:05 Discontinued 5 ml INH X1 ONE Vancomycin Inj 1,500 mg Med 09/02/24 20:55 Discontinued Sodium Chloride 0.9% 500 ml [Ns] 500 ml IV X1 cefTRIAXone/D5w 1gm IV premix [Rocephin/D5w 1gm IV Med 09/03/24 21:00 Active premix] 1 gm in 50 ml IV QDAY@2100 cefTRIAXone/D5w 1gm IV premix [Rocephin/D5w 1gm IV Med 09/02/24 20:05 Discontinued premix] 1 gm in 50 ml IV X1 Code Status Routine Oth 09/03/24 00:00 Ordered Oxygen Delivery PRN RT 09/03/24 00:00 Active Vital Signs Vital signs: Vital Signs Temperature 98.9 F 09/02/24 18:48 Pulse Rate 122 H 09/02/24 18:48 Respiratory Rate 23 H 09/02/24 18:48 Blood Pressure 102/67 09/02/24 18:48 Pulse Oximetry (%) 93 L 09/02/24 18:48 Oxygen Delivery Method Room Air 09/02/24 18:48 Procedures -ED Smoking Cessation Time Spent Discussing Smoking Cessation w/Patient (min): 5 Patient Acknowledges Need for Cessation: Yes Additional Comments: The patient was counseled as to the multiple risks to their health from continued use of tobacco products. It was explained that continuing to smoke may lead to multiple short and nursing home negative health consequences, including but not limited to mouth/esophageal/lung cancer, COPD, and heart disease. The patient states she/he understands these risks and also understands the options and resources available to them to help them stop smoking. Nicotine replacement therapy, local hotlines, and local resources were discussed as viable options for helping them stop their tobacco use. The total time spent counseling the pat ient regarding tobacco cessation was 5 minutes. Shortness of Breath / Dyspnea MDM Narrative MDM Narrative:: Scribe Attestation: 09/02/24 - Sherice Jackson, am scribing for and in the presence of Dr. Myers. 59yo female with a history of COPD, HTN BIBA with about a week of worsening cough, productive cough, purulent sputum, and dyspnea. No other complaints. Patient data External records reviewed:: [facility] previous records (Per chart review, patient was admitted here on 07/23/24 for hyponatremia and diarrhea.) Clinical information provided by:: patient and EMS Social determinants that could affect healthcare access:: substance use (smokes cigarettes) Patient has the following chronic illnesses:: COPD, HTN How is presenting disease/condition affected by chronic disease/condition?: exacerbated by Evaluation data The following diagnostics were reviewed and interpreted by me:: lab results, radiology exam(s) and EKG tracing(s) (My interpretation of the EKG is: Sinus tachycardia (127 bpm) with nonspecific ST-T changes. Isaak Myers MD) Lab and/or radiology exams considered but not ordered:: none Interpretation Summary: I reviewed all diagnostic test results. My interpretation of the EKG is sinus tachycardia with nonspecific ST-T changes. My interpretation of the chest x-ray is infiltrates. My review of the US venous doppler report is no DVT. My review of the CT angio of the chest report is pulmonary embolism and pneumonia. Blood tests remarkable for WBC 14.3, Lactate 2.2, D-Dimer 2940, Potassium 2.5, Magnesium 1.5. COVID/Influenza negative. Urinalysis remarkable for positive leukocyte esterase, 4 RBC, 27 WBC, and bacteria. Medications / Prescriptions Medications or Prescriptions considered but not ordered:: none Medication administrations:: Medication Administration History Acetaminophen (Acetaminophen 325 Mg Tablet) 650 mg PO Q6H PRN PRN Reason: pain and Fever >100.4 Stop: 10/03/24 00:00 Hydrocodone Bitart/Acetaminophen (Hydrocodone/Apap 5/325 Tablet) 1 tab PO Q4HR PRN PRN Reason: PAIN SCALE 4-10(Mod-Sev Stop: 09/08/24 00:00 Albuterol/Ipratropium (Albuterol/Ipratropium (Duoneb) Rt Suzi 3 Ml Nebu) 3 ml INH Q6HRRT [facility] Stop: 10/03/24 00:59 Last Admin: 09/03/24 00:31 Dose: 3 ml Documented By: CON Azithromycin (Azithromycin 250 Mg Tablet) 500 mg PO DAILY@2100 [facility] Stop: 09/10/24 00:09 Last Admin: 09/03/24 01:05 Dose: 500 mg Documented By: BRETT Heparin Sodium/Dextrose (Heparin In D5w Ivpb) 25,000 unit in 250 mls @ 11.431 mls/hr IV .[id number] [facility]; Protocol Stop: 09/17/24 00:14 Last Admin: 09/03/24 01:05 Dose: 18 units/kg/hr, 11.431 mls/hr Documented By: BRETT Co-signed By: AMANDA Ceftriaxone Sodium/Dextrose (Rocephin/D5w 1gm Iv Premix) 1 gm in 50 mls @ 100 mls/hr IV QDAY@2100 [facility] Stop: 09/10/24 20:59 Potassium Chloride (Kcl Ivpb) 10 meq in 100 mls @ 100 mls/hr IV Q1H [facility] Stop: 09/03/24 05:06 Methylprednisolone Sodium Succinate (Methylprednisolone Sod Succ 40 Mg Vial) 40 mg IVP QDAY LYLE Stop: 09/10/24 08:59 Ondansetron HCl (Ondansetron Inj 2 Mg/Ml Inj 2 Ml) 4 mg IVP Q6H PRN; Protocol PRN Reason: NAUSEA OR VOMITING Stop: 10/03/24 00:00 Pantoprazole Sodium (Pantoprazole 40 Mg Tablet) 40 mg PO QDAY LYLE Stop: 10/03/24 08:59 Sodium Chloride (Sodium Chloride Rt Suzi 0.9% 3 Ml Nebu) 9 ml INH PRN PRN PRN Reason: SOLN Stop: 10/02/24 18:49 Last Admin: 09/02/24 19:24 Dose: 9 ml Documented By: ANKUSH Discontinued Medications Diphenhydramine HCl (Diphenhydramine Inj 50 Mg/Ml Vial) 50 mg IVP X1 STA Stop: 09/02/24 18:51 Last Admin: 09/02/24 19:16 Dose: 50 mg Documented By: BRETT Enoxaparin Sodium (Enoxaparin Sod Inj 60 Mg/0.6 Ml Syringe) 60 mg SC X1 ONE Stop: 09/02/24 23:14 Last Admin: 09/02/24 23:58 Dose: 60 mg Documented By: BRETT Magnesium Sulfate (Magnesium Sulfate Ivpb) 2 gm in 50 mls @ 25 mls/hr IV X1 ONE Stop: 09/02/24 20:49 Last Infusion: 09/02/24 21:31 Dose: Infused Documented By: Admin: 09/02/24 19:16 Dose: 25 mls/hr Documented By: BRETT Sodium Chloride (Ns) 1,000 mls @ 999 mls/hr IV .Q1H1M ONE Stop: 09/02/24 20:28 Last Infusion: 09/02/24 21:31 Dose: Infused Documented By: Admin: 09/02/24 19:57 Dose: 999 mls/hr Documented By: EE Ceftriaxone Sodium/Dextrose (Rocephin/D5w 1gm Iv Premix) 1 gm in 50 mls @ 100 mls/hr IV X1 ONE Stop: 09/02/24 20:34 Last Infusion: 09/02/24 21:25 Dose: Infused Documented By: Admin: 09/02/24 20:50 Dose: 100 mls/hr Documented By: EE Acetaminophen (Ofirmev Inj) 1,000 mg in 100 mls @ 250 mls/hr IV X1 ONE Stop: 09/02/24 20:51 Last Infusion: 09/02/24 21:25 Dose: Infused Documented By: Admin: 09/02/24 20:41 Dose: 250 mls/hr Documented By: EE Sodium Chloride (Ns) 1,000 mls @ 999 mls/hr IV .Q1H1M ONE Stop: 09/02/24 21:28 Last Infusion: 09/02/24 22:50 Dose: Infused Documented By: Admin: 09/02/24 20:47 Dose: 999 mls/hr Documented By: EE Vancomycin HCl 1,500 mg/ (Sodium Chloride) 500 mls @ 150 mls/hr IV X1 ONE Stop: 09/03/24 00:14 Last Infusion: 09/03/24 00:39 Dose: Infused Documented By: Admin: 09/02/24 21:16 Dose: 150 mls/hr Documented By: EE Potassium Chloride (Kcl Ivpb) 10 meq in 100 mls @ 100 mls/hr IV X1 ONE Stop: 09/02/24 21:55 Last Infusion: 09/02/24 23:31 Dose: Infused Documented By: Admin: 09/02/24 21:21 Dose: 100 mls/hr Documented By: BRETT Ketorolac Tromethamine (Ketorolac Inj 30 Mg/Ml Vial) 30 mg IVP X1 ONE Stop: 09/02/24 20:29 Last Admin: 09/02/24 20:39 Dose: 30 mg Documented By: BRETT Levalbuterol HCl (Levalbuterol Rt 1.25 Mg/0.5 Ml Nebu) 2.5 mg INH X1 ONE Stop: 09/02/24 18:51 Last Admin: 09/02/24 19:23 Dose: 2.5 mg Documented By: ANKUSH Levalbuterol HCl (Levalbuterol Rt 1.25 Mg/0.5 Ml Nebu) Confirm Administered Dose 1.25 mg INH .STK-MED ONE Stop: 09/02/24 19:22 Last Admin: 09/02/24 20:48 Dose: Not Given Documented By: EE Non-Admin Reason: Cancelled by Provider Comments: duplicate Methylprednisolone Sodium Succinate (Methylprednisolone Sod Succ 62.5 Mg/Ml 2ml Vial) 125 mg IVP X1 ONE Stop: 09/02/24 18:51 Last Admin: 09/02/24 19:16 Dose: 125 mg Documented By: EE Potassium Chloride (Potassium Chloride 10% 20 Meq/15 Ml Udc) 40 meq PO X1 ONE Stop: 09/02/24 20:57 Last Admin: 09/02/24 21:15 Dose: 40 meq Documented By: EE Sodium Chloride (Sodium Chloride Rt 10% 15 Ml Nebu) 5 ml INH X1 ONE Stop: 09/03/24 00:06 Last Admin: 09/03/24 00:44 Dose: 5 ml Documented By: NE Treatment from me here included vancomycin, Benadryl, Magnesium, NS, Rocephin, Tylenol, Toradol, Potassium, Solumedrol, Xopenex, Lovenox. Consultations Consultation(s) initiated? (list below): No Diagnosis Shortness of Breath Differential Diagnosis: acute exacerbation of chronic obstructive airways disease, congestive heart failure, community acquired pneumonia and pulmonary embolism Most likely diagnosis given after review of the tests above:: Pulmonary embolism, Hypokalemia, Sepsis, Pneumonia, UTI (urinary tract infection), COPD exacerbation, Hypomagnesemia Admission Indicated Admission indicated?: indicated Explain why admission is indicated or not indicated:: Pulmonary embolism, Hypokalemia, Sepsis, Pneumonia, UTI (urinary tract infection), COPD exacerbation, Hypomagnesemia Admission Request Was there a request for admission?: Yes Admission Attestation Admission request attestation: Discussed case with Hospitalist service regarding admission. Discussed patients ED course, exam findings, labs, and radiology results. The Hospitalist [agrees] to accept the patient for admission. Disposition Plan Disposition Plan: Admit Critical Care Time Critical Care Time Critical Care Time: Yes Total Critical Care Time (min.): 40 Attestation: Due to a high probability of clinically significant, life threatening deterioration, the patient required my highest level of preparedness to intervene emergently and I personally spent this critical care time directly and personally managing the patient. This critical care time included obtaining a history; examining the patient; ordering and review of studies; arranging urgent treatment with development of a management plan; evaluation of patient's response to treatment; frequent reassessment; and discussions with family and other providers. It was exclusive of separately billable procedures and treating other patients and teaching time. Isaak Myers MD Discharge Plan Plan Patient Disposition: Admit Acute Care w/in Hospital Prescriptions/Referrals Prescriptions/Med Rec: No Action lisinopril 10 mg tablet 20 mg PO QDAY ergocalciferol (vitamin D2) [Vitamin D2] 1,250 mcg (50,000 unit) capsule 50,000 unit PO QWEEK 90 Days Qty: 12 1RF sodium chloride 1,000 mg tablet,soluble 1,000 mg PO BID 10 Days Qty: 20 0RF spironolactone 50 mg tablet 50 mg PO QDAY Qty: 30 0RF levothyroxine 150 mcg tablet 150 mcg PO QDAY Qty: 30 2RF montelukast [Singulair] 10 MG tablet 1 tab PO HS Qty: 0 albuterol sulfate 90 mcg/actuation Hfa Aerosol Inhaler 1 puff INHALATION Q6H PRN (Reason: Shortness Of Breath) Arnuity Ellipta 200 mcg/actuation Blister With Device 1 inh INHALATION QDAY ibuprofen 800 mg tablet 800 mg PO BID Referrals: No Primary/Family,Physician [Primary Care Provider] - In 1 week Problem List Clinical Impression: Pulmonary embolism, Hypokalemia, Sepsis, Pneumonia, UTI (urinary tract infection), COPD exacerbation, Hypomagnesemia Patient/Caregiver Discharge Instructions Print Language: Occitan Stand Alone Forms: Leisa Award Info., Patient Portal Info Letter
--- NOTE | 2024-09-02 18:52 | XR_ITS ---
Examination: CTA chest with intravenous contrast 2-D reconstructions 3-D reconstructions, vascular Date and time of exam: September 02, 2024 2143 hours INDICATIONS: Coughing and shortness of breath chest pain CTDI: vol (mGy) 10.8 DLP: (mGycm) 409 Technique: Multiple axial sections of the thorax have been obtained. 3 mm slice thickness, from below the hemidiaphragms to above the apices of the lungs. Mediastinal and lung density settings have been obtained. 2-D sagittal and coronal reconstructions. 3-D angiographic renderings, 3-D volume renderings, 3D post processing, vascular maximum intensity projections obtained. Contrast administered is 100 cc Isovue 370. Low dose protocols were performed. One or more of the following dose reduction techniques were used; automated exposure control, adjustment of the mA and/or KV according to patient size, use of iterative reconstruction technique. Findings: No thoracic aortic aneurysmal dilatation or dissection Positive for pulmonary artery emboli in the distal main right pulmonary artery as well as upper and lower lobe right pulmonary artery branches Thin-walled 29 mm cavitary lesion in the right upper lobe with surrounding pneumonia Liver mildly irregular in contour Mild bilateral hydronephrosis IMPRESSION: Positive for pulmonary artery emboli in the distal right main pulmonary artery as well as upper and lower lobe right pulmonary artery branches 29 mm cavitary lesion in the right upper lobe with surrounding pneumonia, highest on the differential diagnosis is infectious processes including active tuberculosis, pulmonary infarction in the right upper lobe not excluded Mild bilateral hydronephrosis
--- NOTE | 2024-09-02 18:53 | XR_ITS ---
Examination: AP chest single view Admitting one AP portable upright chest single view Date and time: September 02, 2024 1916 hours Comparison August 16, 2024 INDICATIONS: Shortness of breath chest pain today. FINDINGS: Bibasilar pneumonia. 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
[2024-09-02] MEDS: MethylPREDNISolone SOD SUCC 62.5 MG/ML 2ML VIAL 125 MG IVP (19:16)
[2024-09-02] MEDS: Magnesium Sulfate 2 GM Ivpb 2 GM/50 ML BAG IV (19:16)
[2024-09-02] MEDS: DiphenhydrAMINE INJ 50 MG/ML VIAL IVP (19:16)
[2024-09-02 19:20] LABS: Lactate (Lactic Acid) 2.2 mMol/L (0.4-2.0)
[2024-09-02 19:22] LABS: Basophils % (Auto) 0 % (0-2.5); Eosinophils % (Auto) 0 % (0-10); Hematocrit 40.7 % (36.0-46.0); Hemoglobin 14.4 g/dL (12.0-16.0); Immature Granulocytes % (Auto) 2 % (0-0); Immature Granulocytes Auto 0.22 Thou/mm3 (0.00-0.00); Lymphocytes # (Auto) 0.7 Thou/mm3 (1.0-4.8); Lymphocytes % (Auto) 5 % (10-50); Mean Corpuscular HGB Conc 35.4 g/dl (31.0-37.0); Mean Corpuscular Hemoglobin 33.3 pg (25.0-35.0); Mean Corpuscular Volume 94 fL (80-100); Monocytes # (Auto) 0.3 Thou/mm3 (0.0-0.8); Monocytes % (Auto) 2 % (0-12); Neutrophils # (Auto) 13.1 Thou/mm3 (1.8-7.7); Neutrophils % (Auto) 92 % (37-80); Nucleated Red Blood Cell % 0 /100 WBC (0); Platelet Count 173 Thou/mm3 (140-440); RDW Standard Deviation 52.7 fL (36.4-46.3); Red Blood Count 4.33 Miln/mm3 (4.00-5.20); White Blood Count 14.3 Thou/mm3 (3.6-11.0)
[2024-09-02] MEDS: LEVALBUTEROL RT 1.25 MG/0.5 ML NEBU 2.5 MG INH (19:23)
[2024-09-02] MEDS: SODIUM CHLORIDE RT SOL 0.9% 3 ML NEBU 9 ML INH (19:24)
[2024-09-02 19:30] LABS: Sed Rate (ESR) 28 mm/hr (0-30)
[2024-09-02 19:37] LABS: INR 1.5 (0.9-1.3); Partial Thromboplastin Time 30.8 Seconds (22.0-36.0); Prothrombin Time 16.1 Seconds (9.0-12.2)
[2024-09-02 19:41] LABS: B-Type Natriuretic Peptide 53 pg/mL (0-100)
--- NOTE | 2024-09-02 19:42 | XR_ITS ---
Examination: Venous duplex lower extremity sonogram, bilateral. Date and time of exam: September 02, 2024 2035 hours INDICATIONS: Bilateral leg edema and pain 1 month Technique: Multiple sonographic images of the deep venous system have been obtained. B-mode/2-D grayscale imaging of vascular structures and Doppler spectral analysis (waveforms) and color performed Both legs are examined. Findings: Deep venous systems do not demonstrate abnormal echogenicity. Limited visualization left common femoral left superficial femoral veins All visualized deep veins exhibit compressibility. All visualized deep veins exhibit augmentation. Impression: Limited study, no DVT demonstrated
[2024-09-02 19:46] LABS: D-Dimer 2940 ng/mL (<600)
[2024-09-02 19:50] LABS: Collection Type, Urine Clean Catch
[2024-09-02 19:57] LABS: Bacteria,Urine Rare; Bilirubin,Urine Negative (Negative); Blood,Urine Trace (Negative); Clarity,Urine Turbid (Clear/Hazy); Color,Urine Yellow (Lt Yel-Yel); Culture Indicated,Urine Yes; Glucose, Urine Negative (Negative); Ketones,Urine Negative (Negative); Leukocyte Esterase,Urine Positive (Negative); Nitrite,Urine Negative (Negative); Protein,Urine Trace (Neg - Trace); RBC,Urine 4 /hpf (0-3); Specific Gravity,Urine 1.011 (1.001-1.035); Squamous Epithelial Cell,Urine < 1 /hpf (0-5); Urobilinogen,Urine Negative mg/dL (0.0-1.0); WBC,Urine 27 /hpf (0-5)
[2024-09-02] MEDS: SODIUM CHLORIDE 0.9% 1000 ML 1,000 ML 999 ML IV ×2 (19:57→20:47)
[2024-09-02 20:06] LABS: Base Excess -2 (-3-3); HCO3 22 mEq/L (20-26); Inspired Oxygen, FIO2 21 %; O2 Saturation 72 % (91-98); PCO2 33 mmHg (32.0-48.0); pH, Arterial 7.43 (7.35-7.45)
[2024-09-02 20:11] LABS: Allen Test Performed/OK; PO2 39 mmHg (83-108); Puncture Site Left Radial
[2024-09-02 20:29] LABS: Alanine Aminotransferase 8 U/L (10-49); Albumin, Serum 3.8 gm/dL (3.4-4.8); Albumin/Globulin Ratio 1.6 (1.2-2.2); Alkaline Phosphatase 87 U/L (46-116); Anion Gap 9 (7-16); Aspartate Amino Transferase 12 U/L (0-34); BUN/Creatinine Ratio 13 Ratio (12-20); Bilirubin,Direct 0.3 mg/dL (0.0-0.3); Bilirubin,Total 0.8 mg/dL (0.3-1.2); Blood Urea Nitrogen 10 mg/dL (9-23); Calcium (Corrected) 9.2 mg/dL (8.5-10.1); Carbon Dioxide 19.5 mMol/L (20.0-31.0); Chloride 105 mMol/L (98-107); Creatinine (Component) 0.8 mg/dL (0.6-1.3); Estimated Creatinine Clearance 64.7 mL/min (>60); Free T4 (Free Thyroxine) 1.46 ng/dL (0.89-1.76); Globulin 2.4 gm/dL (2.3-3.5); Glucose 107 mg/dL (74-106); Magnesium 1.5 mg/dL (1.6-2.6); Osmolality,Calculated 265 (275-295); Procalcitonin 1.97 ng/ml (0.0-0.49); Sodium 133 mMol/L (136-145); Thyroid Stimulating Hormone 6.47 uIU/mL (0.55-4.78); Total Protein 6.2 gm/dL (5.7-8.2); Troponin I < 0.020 ng/mL (0.0-0.045); eGFR > 60 See Note
[2024-09-02 20:35] LABS: Potassium 2.5 mMol/L (3.4-5.1)
[2024-09-02] MEDS: KETOROLAC INJ 30 MG/ML VIAL IVP (20:39)
[2024-09-02] MEDS: ACETAMINOPHEN IVPB 1,000 MG/100 ML VIAL 250 MG IV (20:41)
[2024-09-02] MEDS: cefTRIAXone/D5w 1gm IV premix 1 GM/50 ML BAG IV (20:50)
[2024-09-02 20:55] LABS: C-Reactive Protein > 10.0 mg/dL (0.0-0.9)
[2024-09-02 21:03] LABS: Allen Test Performed/OK; Base Excess -4 (-3-3); HCO3 19 mEq/L (20-26); Inspired Oxygen, FIO2 21 %; O2 Saturation 92 % (91-98); PCO2 30 mmHg (32.0-48.0); PO2 61 mmHg (83-108); Puncture Site Right Radial; pH, Arterial 7.43 (7.35-7.45)
[2024-09-02] MEDS: POTASSIUM CHLORIDE 10% 20 MEQ/15 ML UDC 40 MEQ PO (21:15)
[2024-09-02] MEDS: Vancomycin Inj 1,500 MG in SODIUM CHLORIDE 0.9% 500 ML 500 ML 150 MG IV (21:16)
[2024-09-02] MEDS: POTASSIUM CHL 10 mEq IVPB 10 MEQ/100 ML BAG 100 MEQ IV (21:21)
[2024-09-02 22:18] LABS: Reflex Lactate? Y
[2024-09-02 22:39] LABS: Lactic Acid, 3 HR 2.7 mMol/L (0.4-2.0)
[2024-09-02] MEDS: ENOXAPARIN SOD INJ 60 MG/0.6 ML SYRINGE SC (23:58)
[2024-09-03] VITALS (32 sets, daily range): BP systolic 69–117; BP diastolic 50–91; PULSE 78–108; RESP 17–36; TEMP 36–37.1; O2SAT 93–100; BMI 27.2
--- NOTE | 2024-09-03 00:12 | ESHP_ITS ---
Documentation for date of: 09/03/24 HPI History of Present Illness Chief complaint: SOB History of present illness: 59-year-old female with past medical history of hypothyroidism, hypertension, COPD/asthma, and active smoker who was admitted to the hospital on 09/03/2024 after come to the ED with complaints of shortness of breath. On assessment patient stated that her shortness of breath is normal for her as she has COPD and asthma and she still continues to smoke, but that today her shortness of breath was out of the ordinary and she was having more work of breathing. She stated that started only today and grandson was at bedside also stated that started earlier today around 8 hours ago. Patient stated that she did not have any fevers or any chills nor any night sweats or weight loss out of the ordinary. She states that she may have lost some weight, but is because she has been only eating 1 meal per day. She states she had some upper airway congestion, but she did not produce any phlegm and did not have any productive cough. She states she has not traveled outside the [place] as of recently and she did not have any sick contacts. She also mention she did not have any history of liver disease or cancer or any type of blood clots in the past or in the family. Patient said that otherwise she has no other complaints at this time. ED course: Initially came in tachycardic, tachypneic, hypoxic, and afebrile. Initial labs were relevant for leukocytosis, hypercoagulability, elevated D-dimer, hypokalemia, non-anion gap metabolic acidosis, lactic acidosis, hypomagnesemia, elevated CRP, and elevated procalcitonin. Initial imaging included chest CTA which showed pulmonary embolism in the distal right main artery as well as the upper and lower lobe right pulmonary artery branches. Chest CTA also showed a 29 mm cavitary lesion in the right upper lobe which is suspicious for active tuberculosis versus pulmonary infarction. Chest x-ray also showed bibasilar pneumonia. Venous Doppler of the lower extremities did not show any DVT. PMH: As above Surgical Hx: Cholecystectomy, multiple MSK surgeries including ankle and shoulder Medications: Levothyroxine, pending rest of medication reconciliation Review of Systems Review of Systems Systems Reviewed: All systems reviewed, normal except as documented Past Medical History Past Medical History NEUROLOGIC: Positive Neurological Disorders and Multiple Sclerosis CARDIAC: Positive Cardiac Disorders and Hypertension RESPIRATORY: Positive Chronic Obstructive Pulmonary Disease (COPD) and Asthma GASTROINTESTINAL: Positive Gastrointestinal Disorders and Gall Bladder Disease REPRODUCTIVE: Positive Previous Pregnancies MUSCULOSKELETAL: Positive Musculoskeletal Disorders, Osteoporosis, Carpal Tunnel Syndrome, Fibromyalgia, Fractures and Degenerative Joint Disease ENDOCRINE: Positive Endocrine Disorders and Hypothyroidism OTHER HISTORY: Positive Hospitalization, Falls and Chicken Pox Family History FAMILY HISTORY: Positive Family Gastrointestinal Problems (sister colon cancer) and Family Cancer (sister colon cancer) Surgical History SURGICAL: Positive Eye Surgery, Abdominal Surgery, Open Reduction Internal Fixation (right shoulder), Hysterectomy and Section Social History SMOKING STATUS: Current every day smoker Exam Vital Signs Temp Pulse Resp BP Pulse Ox O2 Del Method O2 Flow Rate 98.9 F 110 H 76 H 124/85 H 94 L Nasal Cannula 2 09/02/24 23:00 09/02/24 23:00 09/02/24 23:00 09/02/24 23:00 09/02/24 23:00 09/02/24 23:00 09/02/24 23:00 Narrative Exam General: A/O x3, no acute distress Eyes: PERRL, EOMI. Anicteric, vision grossly intact. Ears: No ear pain, no ear discharge, Hearing grossly intact. Nose: No nasal discharge. Mouth/Throat: Moist mucous membranes, no redness, no lesions. Neck: Neck supple, non-tender, no cervical lymphadenopathy. Lungs: Wheezing AMALIA and rhonchi, No accessory muscle use. Cardio: Normal S1/S2, regular rhythm, no murmurs, no JVD Abdomen: Soft, non-tender, no palpable masses, peristalsis present, no guarding or rebound. Extremities: Symmetrical, no significant deformities, 2+ peripheral edema on R LE and trace in L LE , non-tender, peripheral pulses presents. Skin: No rashes, no lesions, warm to touch. Neuro: No focal neurological deficits. motor and sensory intact. Psych: Cooperative, appropriate mood and effect. Results: Labs 09/03/24 05:08 09/03/24 00:32 Labs: Short CBC 09/02/24 Range/Units 19:09 WBC 14.3 H (3.6-11.0) Thou/mm3 Hgb 14.4 (12.0-16.0) g/dL Hct 40.7 (36.0-46.0) % Plt Count 173 D (140-440) Thou/mm3 BMP 09/02/24 19:09 Sodium 133 L Potassium 2.5 L* Chloride 105 Carbon Dioxide 19.5 L BUN 10 Creatinine 0.8 Glucose 107 H Calcium 9.0 Cardiac Enzymes 09/02/24 Range/Units 19:09 Troponin I < 0.020 (0.0-0.045) ng/mL Liver Function 09/02/24 Range/Units 19:09 Total Bilirubin 0.8 (0.3-1.2) mg/dL Direct Bilirubin 0.3 (0.0-0.3) mg/dL AST 12 (0-34) U/L ALT 8 L (10-49) U/L Alkaline Phosphatase 87 (46-116) U/L Albumin 3.8 (3.4-4.8) gm/dL Urine 09/02/24 Range/Units 19:40 Urine Color Yellow (Lt Yel-Yel) Urine Clarity Turbid A (Clear/Hazy) Urine pH 6.0 (5.0-7.0) Ur Specific [place] 1.011 (1.001-1.035) Urine Protein Trace (Neg - Trace) Urine Glucose (UA) Negative (Negative) ABG Interpretation ABG results: 09/02/24 09/02/24 20:00 20:59 ABG pH 7.43 7.43 ABG pCO2 33 30 L ABG pO2 39 L* 61 L D ABG HCO3 22 19 L ABG O2 Saturation 72 L 92 ABG Base Excess -2 -4 L Quality Measures Quality Measures sepsis Current suspected stage: ruled out Possible source: pulmonary Blood cultures ordered: yes Antibiotic ordered: Yes Medications Home Medications and Allergies Home Medications ?Medication ?Instructions ?Recorded ?Confirmed ?Type montelukast 10 mg tablet 1 tab PO HS ##0 09/01/16 History (Singulair) lisinopril 10 mg tablet 20 mg PO QDAY 05/02/1709/03 History albuterol sulfate 90 mcg/actuation 1 puff inhalation Q 6H PRN 03/29/19 09/03/24 History aerosol inhaler Shortness Of Breath fluticasone furoate 200 1 inh inhalation QDAY 09/03/24 History mcg/actuation blister powder for inhalation (Arnuity Ellipta) ibuprofen 800 mg tablet 800 mg PO BID 04/14/2209/03 History Allergies Allergy/AdvReac Type Severity Reaction Status Date / Time adhesive tape Allergy Severe ANY Verified 09/02/24 18:50 MEDICAL TAPE / RASH prednisone Allergy Severe CRAZY Verified 09/02/24 18:50 Penicillins Allergy Mild Rash Verified 09/02/24 18:50 aspirin Allergy Unknown Verified 09/02/24 18:50 Sulfa (Sulfonamide Allergy Unknown Verified 09/02/24 18:50 Antibiotics) sulfacetamide Allergy Unknown Verified 09/02/24 18:50 Visit Medications Acetaminophen (Acetaminophen 325 Mg Tablet) 650 mg PO Q6H PRN PRN Reason: pain and Fever >100.4 Stop: 10/03/24 00:00 Hydrocodone Bitart/Acetaminophen (Hydrocodone/Apap 5/325 Tablet) 1 tab PO Q4HR PRN PRN Reason: PAIN SCALE 4-10(Mod-Sev Stop: 09/08/24 00:00 Albuterol/Ipratropium (Albuterol/Ipratropium (Duoneb) Rt Suzi 3 Ml Nebu) 3 ml INH Q6HRRT [facility] Stop: 10/03/24 00:59 Azithromycin (Azithromycin 250 Mg Tablet) 500 mg PO QDAY [facility] Stop: 09/10/24 00:09 Heparin Sodium (Porcine) (Heparin Sod Inj 5000 Unit/Ml Vial) 5,100 unit 80 unit/kg (5100 unit) IV X1 ONE; Protocol Stop: 09/03/24 00:06 Vancomycin HCl 1,500 mg/ (Sodium Chloride) 500 mls @ 150 mls/hr IV X1 ONE Stop: 09/03/24 00:14 Last Admin: 09/02/24 21:16 Dose: 150 mls/hr Heparin Sodium/Dextrose (Heparin In D5w Ivpb) 25,000 unit in 250 mls @ 11.431 mls/hr IV .[id number] [facility]; Protocol Stop: 09/17/24 00:14 Ceftriaxone Sodium 1 gm/ (Sodium Chloride) 50 mls @ 100 mls/hr IV QDAY [facility] Stop: 09/10/24 08:59 Methylprednisolone Sodium Succinate (Methylprednisolone Sod Succ 40 Mg Vial) 40 mg IVP QDAY [facility] Stop: 09/10/24 08:59 Ondansetron HCl (Ondansetron Inj 2 Mg/Ml Inj 2 Ml) 4 mg IVP Q6H PRN; Protocol PRN Reason: NAUSEA OR VOMITING Stop: 10/03/24 00:00 Pantoprazole Sodium (Pantoprazole 40 Mg Tablet) 40 mg PO QDAY [facility] Stop: 10/03/24 08:59 Sodium Chloride (Sodium Chloride Rt Suzi 0.9% 3 Ml Nebu) 9 ml INH PRN PRN PRN Reason: SOLN Stop: 10/02/24 18:49 Last Admin: 09/02/24 19:24 Dose: 9 ml Sodium Chloride (Sodium Chloride Rt 10% 15 Ml Nebu) 5 ml INH X1 ONE Stop: 09/03/24 00:06 Discontinued Medications Diphenhydramine HCl (Diphenhydramine Inj 50 Mg/Ml Vial) 50 mg IVP X1 STA Stop: 09/02/24 18:51 Last Admin: 09/02/24 19:16 Dose: 50 mg Enoxaparin Sodium (Enoxaparin Sod Inj 60 Mg/0.6 Ml Syringe) 60 mg SC X1 ONE Stop: 09/02/24 23:14 Last Admin: 09/02/24 23:58 Dose: 60 mg Magnesium Sulfate (Magnesium Sulfate Ivpb) 2 gm in 50 mls @ 25 mls/hr IV X1 ONE Stop: 09/02/24 20:49 Last Infusion: 09/02/24 21:31 Dose: Infused Sodium Chloride (Ns) 1,000 mls @ 999 mls/hr IV .Q1H1M ONE Stop: 09/02/24 20:28 Last Infusion: 09/02/24 21:31 Dose: Infused Ceftriaxone Sodium/Dextrose (Rocephin/D5w 1gm Iv Premix) 1 gm in 50 mls @ 100 mls/hr IV X1 ONE Stop: 09/02/24 20:34 Last Infusion: 09/02/24 21:25 Dose: Infused Acetaminophen (Ofirmev Inj) 1,000 mg in 100 mls @ 250 mls/hr IV X1 ONE Stop: 09/02/24 20:51 Last Infusion: 09/02/24 21:25 Dose: Infused Sodium Chloride (Ns) 1,000 mls @ 999 mls/hr IV .Q1H1M ONE Stop: 09/02/24 21:28 Last Infusion: 09/02/24 22:50 Dose: Infused Potassium Chloride (Kcl Ivpb) 10 meq in 100 mls @ 100 mls/hr IV X1 ONE Stop: 09/02/24 21:55 Last Infusion: 09/02/24 23:31 Dose: Infused Ketorolac Tromethamine (Ketorolac Inj 30 Mg/Ml Vial) 30 mg IVP X1 ONE Stop: 09/02/24 20:29 Last Admin: 09/02/24 20:39 Dose: 30 mg Levalbuterol HCl (Levalbuterol Rt 1.25 Mg/0.5 Ml Nebu) 2.5 mg INH X1 ONE Stop: 09/02/24 18:51 Last Admin: 09/02/24 19:23 Dose: 2.5 mg Methylprednisolone Sodium Succinate (Methylprednisolone Sod Succ 62.5 Mg/Ml 2ml Vial) 125 mg IVP X1 ONE Stop: 09/02/24 18:51 Last Admin: 09/02/24 19:16 Dose: 125 mg Potassium Chloride (Potassium Chloride 10% 20 Meq/15 Ml Udc) 40 meq PO X1 ONE Stop: 09/02/24 20:57 Last Admin: 09/02/24 21:15 Dose: 40 meq Assessment & Plan Plan 59-year-old female with past medical history of hypothyroidism, hypertension, COPD/asthma, and active smoker who was admitted to the hospital on 09/03/2024 for acute hypoxic respiratory failure likely secondary to pulmonary embolism and community-acquired pneumonia. #Acute hypoxic respiratory failure #Pulmonary embolism #Community-acquired pneumonia #29 mm cavitary lesion #COPD exacerbation #Concern for TB Patient states that she started having increased shortness of breath today which was out of the ordinary compared to her normal shortness of breath given her COPD/asthma. Patient denied having any productive cough with any blood change sputum. Patient denies having any history of blood clots or traveling outside the [place]. Patient denied any night sweats or recent weight loss. Chest CTA showed pulmonary embolism of the distal main right pulmonary artery as well as a upper and lower lobe pulmonary artery branches. Also showed a thin- walled 29 mm cavitary lesion in the right upper lobe which was concerning for possible tuberculosis versus pulmonary infarction. Patient's chest x-ray that show bibasilar pneumonia D-dimer elevated 2940 Patient saturating well on nasal cannula, but was noted to have wheezing bilaterally Plan: Heparin drip per protocol Azithromycin and ceftriaxone 09/03/2024? DuoNebs scheduled every 6 hours IV Solu-Medrol 40 mg daily Echo ordered Cocci ordered Blood cultures ordered AFBs x 3 ordered QuantiFERON ordered Isolation precautions Airborne precautions Will continue to monitor #Lactic acidosis #Electrolyte imbalance #Hypokalemia #Hypomagnesemia Patient came with potassium of 2.5 and magnesium of 1.5 In the ED patient received 2 g magnesium and 50 mEq of potassium Patient had a lactic acid of 2.2 and uptrend to 2.7 Plan: Will trend lactic acid Will repeat potassium and magnesium levels Will replete as necessary #Right lower extremity edema Patient has 2+ right lower extremity pitting edema compared to left lower extremity which only shows some trace edema. No echo on file Venous Doppler was negative for DVT Peripheral pulses were present bilaterally Plan: Echo ordered Consider venogram given high suspicion for DVT, which could be located more proximally in the external iliac versus proximal femoral veins. #Hypothyroidism Patient's TSH was 6.47 and free T4 was 1.6 on admission Patient takes levothyroxine at home Resume patient's home levothyroxine when medication reconciliation is done. #Hx of hypertension Patient's blood pressure has been stable during admission Will hold off on antihypertensive medications for now. Disposition: Patient admitted to telemetry for AHRF 2/2 PE and PNA. Diet: Cardiac GI prophylaxis: protonix DVT prophylaxis: Heparin drip Code: Full Case disclosed with Attending Dr. Obdulio Carter PGY1 Disclaimer: Even though this this note was dictated by speech recognition and even though it was carefully revised there may still be minor errors in rn vascular due to voice recognition software. Attending Provider Attestation/Addendum I reviewed labs, imaging, EKG, home medications and prior available records. Face to face evaluation was performed by me. I have personally examined the patient and discussed assessment and plan with the IM team. I reviewed the resident note and agree with the plan with exceptions as below. Acute hypoxic respiratory failure Acute PE Bilateral pneumonia COPD Leukocytosis Hypokalemia Hypomagnesemia Hypernatremia Elevated lactic acid Cavitary lesion of lung Tobacco use Started heparin drip Started ceftriaxone/azithromycin Started DuoNebs and IV corticosteroids Ordered echocardiogram Replete potassium and magnesium and follow-up levels Trend lactic acid Ordered AFBs, QuantiFERON, and cocci IgM Avoid tobacco use
[2024-09-03] MEDS: ALBUTEROL/IPRATROPIUM (Duoneb) RT SOL 3 ML NEBU INH ×4 (00:31→19:15)
[2024-09-03] MEDS: SODIUM CHLORIDE RT 10% 15 ML NEBU 5 ML INH (00:44)
[2024-09-03 00:59] LABS: Magnesium 1.9 mg/dL (1.6-2.6)
--- NOTE | 2024-09-03 01:00 | PC.RT ---
pt able to expectorate 5 ml of frothy cream sputum obtained at 0056 sent to lab
[2024-09-03 01:02] LABS: Potassium 2.5 mMol/L (3.4-5.1)
[2024-09-03] MEDS: AZITHROMYCIN 250 MG TABLET 500 MG PO ×2 (01:05→21:34)
[2024-09-03] MEDS: Heparin/D5w 25K 250 ML Ivpb 25,000 UNIT/250 ML BAG 11.431 UNIT IV ×2 (01:05→22:59)
[2024-09-03 01:12] LABS: Cult AFB Sendout- Sputum* See Sep Rpt
[2024-09-03 02:09] LABS: Lactate (Lactic Acid) 2.7 mMol/L (0.4-2.0)
[2024-09-03] MEDS: POTASSIUM CHL 10 mEq IVPB 10 MEQ/100 ML BAG 100 MEQ IV ×3 (02:15→04:37)
[2024-09-03] MEDS: SODIUM CHLORIDE 0.9% 500 ML 500 ML 999 ML IV (04:36)
[2024-09-03] MEDS: SODIUM CHLORIDE 0.9% 1000 ML 1,000 ML 65 ML IV (04:37)
[2024-09-03 04:46] LABS: Quantiferon-TB* See Sep Rpt
[2024-09-03 05:05] LABS: Reflex Lactate? Y
[2024-09-03 05:14] LABS: Basophils % (Auto) 0 % (0-2.5); Eosinophils % (Auto) 0 % (0-10); Hematocrit 31.7 % (36.0-46.0); Hemoglobin 11.2 g/dL (12.0-16.0); Immature Granulocytes % (Auto) 8 % (0-0); Immature Granulocytes Auto 1.66 Thou/mm3 (0.00-0.00); Lymphocytes # (Auto) 0.5 Thou/mm3 (1.0-4.8); Lymphocytes % (Auto) 2 % (10-50); Mean Corpuscular HGB Conc 35.3 g/dl (31.0-37.0); Mean Corpuscular Hemoglobin 32.8 pg (25.0-35.0); Mean Corpuscular Volume 93 fL (80-100); Monocytes # (Auto) 1.2 Thou/mm3 (0.0-0.8); Monocytes % (Auto) 5 % (0-12); Neutrophils # (Auto) 18.3 Thou/mm3 (1.8-7.7); Neutrophils % (Auto) 85 % (37-80); Nucleated Red Blood Cell % 0 /100 WBC (0); Platelet Count 147 Thou/mm3 (140-440); RDW Standard Deviation 52.2 fL (36.4-46.3); Red Blood Count 3.41 Miln/mm3 (4.00-5.20); White Blood Count 21.6 Thou/mm3 (3.6-11.0)
[2024-09-03] MEDS: POTASSIUM CHL 10 mEq IVPB 10 MEQ/100 ML BAG 75 MEQ IV (05:50)
[2024-09-03 07:39] LABS: Lactic Acid, 3 HR 3.6 mMol/L (0.4-2.0)
[2024-09-03] MEDS: LEVOTHYROXINE SODIUM 125 MCG, LEVOTHYROXINE SODIUM 25 MCG 150 MCG PO (07:57)
[2024-09-03] MEDS: PANTOPRAZOLE 40 MG TABLET PO (08:00)
[2024-09-03 08:16] LABS: Alanine Aminotransferase 8 U/L (10-49); Albumin/Globulin Ratio 1.4 (1.2-2.2); Alkaline Phosphatase 77 U/L (46-116); Anion Gap 8 (7-16); Aspartate Amino Transferase 11 U/L (0-34); BUN/Creatinine Ratio 12 Ratio (12-20); Bilirubin,Total 0.3 mg/dL (0.3-1.2); Blood Urea Nitrogen 11 mg/dL (9-23); Calcium 7.5 mg/dL (8.3-10.6); Calcium (Corrected) 8.3 mg/dL (8.5-10.1); Carbon Dioxide 18.2 mMol/L (20.0-31.0); Chloride 111 mMol/L (98-107); Creatinine (Component) 0.9 mg/dL (0.6-1.3); Estimated Creatinine Clearance 59.2 mL/min (>60); Globulin 2.1 gm/dL (2.3-3.5); Glucose 147 mg/dL (74-106); Magnesium 1.8 mg/dL (1.6-2.6); Osmolality,Calculated 276 (275-295); Potassium 4.7 mMol/L (3.4-5.1); Sodium 137 mMol/L (136-145); Total Protein 5.1 gm/dL (5.7-8.2); eGFR > 60 See Note
--- NOTE | 2024-09-03 08:19 | ECHO_ITS ---
Transthoracic Echo Report Ht (in): 62 Wt (lb): 149 Exam Location: Echo Lab Status: Inpatient Certified Physician'S Assistant: Elmira Dave Indications: Procedure Performed: BP: 99 / 77 HR: 87 Technical Quality: Techinically Difficult-Lung Interferance Due to Possible TB MEASUREMENTS (Male / Female) Normal Values 2D ECHO LV Diastolic Diameter PLAX 3.9 cm 4.2 - 5.9 / 3.9 - 5.3 cm LV Systolic Diameter PLAX 3.5 cm IVS Diastolic Thickness 0.5 cm 0.6 - 1.0 / 0.6 - 0.9 cm LVPW Diastolic Thickness 0.8 cm 0.6 - 1.0 / 0.6 - 0.9 cm LV Relative Wall Thickness 0.3 LVOT Diameter 2.0 cm LA Volume Index 24.0 cm?/m? 16 - 28 cm?/m? DOPPLER AV Peak Velocity 101.0 cm/s AV Peak Gradient 4.1 mmHg LVOT Peak Velocity 101.0 cm/s LVOT Peak Gradient 4.1 mmHg AV Area Cont Eq pk 3.1 cm? MV Area PHT 6.5 cm? Mitral E Point Velocity 91.2 cm/s Mitral A Point Velocity 65.5 cm/s Mitral E to A Ratio 1.4 LV E' Lateral Velocity 10.0 cm/s Mitral E to LV E' Lateral Ratio 9.1 LV E' Septal Velocity 8.5 cm/s Mitral E to LV E' Septal Ratio 10.7 PV Peak Velocity 88.2 cm/s PV Peak Gradient 3.1 mmHg FINDINGS Left Ventricle Normal left ventricular size and wall thickness. The left ventricular ejection fraction is severely decreased, estimated at 25-30%. There is grade I diastolic dysfunction of the left ventricle (impaired relaxation pattern). Right Ventricle The right ventricle is normal in size and systolic function. The estimated right ventricular systolic pressure can not be reported due to inadequate Doppler signal. Left Atrium The left atrium is normal by two-dimensional, color flow and Doppler imaging with no structural abnormalities, no thrombus formation present. Right Atrium The right atrium is normal by two-dimensional imaging, color flow and Doppler imaging with no structural abnormalities, no thrombus formation present. Atrial Septum The interatrial septum appears normal with no evidence of a shunt. Aorta The aorta is normal by two-dimensional, color flow and Doppler interrogation. Mitral Valve The mitral valve is normal by two-dimensional, color flow and Doppler interrogation. There is no significant mitral valve regurgitation, stenosis or prolapse. Aortic Valve The aortic valve is trileaflet and normal by two-dimensional, color flow and Doppler interrogation. There is no significant aortic valve regurgitation. Tricuspid Valve The tricuspid valve is normal by two-dimensional, color flow and Doppler interrogation. There is trace tricuspid regurgitation. Pulmonic Valve The pulmonic valve is not well visualized. There is no significant pulmonic valve regurgitation. Vessels The pulmonary artery appears normal. The inferior vena cava is dilated with poor inspiratory collapse. Pericardium The pericardium is normal by two-dimensional imaging. There is no significant pericardial effusion. CONCLUSIONS Indications: PE Normal LV size and function. Estimated EF -55-60%. Normal diastolic function. RV normal size and function.No evidence of any right heart strain. Trace Mr and TR. No pericardial effusion. Avelino Motley (Electronically Signed) Final Date: 03 September 2024 18:15
[2024-09-03 08:46] LABS: INR 1.5 (0.9-1.3); Partial Thromboplastin Time 50.2 Seconds (22.0-36.0); Prothrombin Time 16.3 Seconds (9.0-12.2)
[2024-09-03] MEDS: SODIUM CHLORIDE RT SOL 0.9% 3 ML NEBU 9 ML INH ×2 (09:26→16:32)
[2024-09-03] MEDS: RINGERS LACTATED 1000 ML 1,000 ML 999 ML IV (09:45)
[2024-09-03 10:41] LABS: Cult AFB Sendout- Sputum* See Sep Rpt
--- NOTE | 2024-09-03 10:54 | ESPR_ITS ---
Documentation for date of: 09/03/24 Subjective Subjective Interval history: Patient seen and examined at bedside. Patient admitted overnight for management of community-acquired pneumonia, 29 mm cavitary lesion and pulmonary embolism Patient currently saturating well on 2 L nasal cannula, SPO2 more than 92, blood pressure soft, at bedside noted to be 100/69, patient will be given 1 L bolus of NS. Cardiology was consulted, echocardiogram stat ordered, will continue with IV antibiotics for now, IV steroids, DuoNebs and heparin drip. Home dose levothyroxine was resumed. Exam Vital Signs Temp Pulse Resp BP Pulse Ox O2 Del Method O2 Flow Rate 98.8 F 90 18 100/66 97 Nasal Cannula 1 09/03/24 08:00 09/03/24 08:00 09/03/24 08:00 09/03/24 08:00 09/03/24 08:00 09/03/24 08:00 09/03/24 08:00 Narrative Exam General: A/O x3, no acute distress Eyes: PERRL, EOMI. Anicteric, vision grossly intact. Ears: No ear pain, no ear discharge, Hearing grossly intact. Nose: No nasal discharge. Mouth/Throat: Moist mucous membranes, no redness, no lesions. Neck: Neck supple, non-tender, no cervical lymphadenopathy. Lungs: Wheezing AMALIA and rhonchi, No accessory muscle use. Cardio: Normal S1/S2, regular rhythm, no murmurs, no JVD Abdomen: Soft, non-tender, no palpable masses, peristalsis present, no guarding or rebound. Extremities: Symmetrical, no significant deformities, 2+ peripheral edema on R LE and trace in L LE , non-tender, peripheral pulses presents. Skin: No rashes, no lesions, warm to touch. Neuro: No focal neurological deficits. motor and sensory intact. Psych: Cooperative, appropriate mood and effect. Objective Labs 09/03/24 05:08 09/03/24 07:11 Labs: Laboratory Results - last 24 hr 09/02/24 09/02/24 09/02/24 19:09 19:40 20:00 WBC 14.3 H RBC 4.33 Hgb 14.4 Hct 40.7 MCV 94 MCH 33.3 MCHC 35.4 RDW Std Deviation 52.7 H Plt Count 173 D Neut % (Auto) 92 H Lymph % (Auto) 5 L [place] % (Auto) 2 Eos % (Auto) 0 Baso % (Auto) 0 Neut # (Auto) 13.1 H Lymph # (Auto) 0.7 L [place] # (Auto) 0.3 Eos # (Auto) 0.0 Baso # (Auto) 0.0 Immature Gran # (Auto) 0.22 H Absolute Nucleated RBC 0.00 Immature Gran % 2 H Nucleated RBC % 0 ESR 28 PT 16.1 H INR 1.5 H APTT 30.8 D-Dimer 2940 H Puncture Site Left Radial ABG pH 7.43 ABG pCO2 33 ABG pO2 39 L* ABG HCO3 22 ABG O2 Saturation 72 L ABG Base Excess -2 FiO2 21 Sodium 133 L Potassium 2.5 L* Chloride 105 Carbon Dioxide 19.5 L Anion Gap 9 BUN 10 Creatinine 0.8 Estim Creat Clear Calc 64.7 eGFR > 60 BUN/Creatinine Ratio 13 Glucose 107 H Calculated Osmolality 265 L Lactic Acid 2.2 H Calcium 9.0 Corrected Calcium 9.2 Magnesium 1.5 L Total Bilirubin 0.8 Direct Bilirubin 0.3 AST 12 ALT 8 L Alkaline Phosphatase 87 Troponin I < 0.020 C-Reactive Prot, Quant > 10.0 H B-Natriuretic Peptide 53 Total Protein 6.2 Albumin 3.8 Globulin 2.4 Albumin/Globulin Ratio 1.6 Procalcitonin 1.97 H TSH 6.47 H D Free T4 1.46 Ur Collection Type Clean Catch Urine Color Yellow Urine Clarity Turbid A Urine pH 6.0 Ur Specific [place] 1.011 Urine Protein Trace Urine Glucose (UA) Negative Urine Ketones Negative Urine Blood Trace Urine Nitrite Negative Urine Bilirubin Negative Urine Urobilinogen (Auto) Negative Ur Leukocyte Esterase Positive Urine RBC 4 H Urine WBC 27 H Ur Squamous Epith Cells < 1 Urine Bacteria Rare Ur Culture Indicated? Yes 09/02/24 09/02/24 09/03/24 20:59 22:30 00:32 WBC RBC Hgb Hct MCV MCH MCHC RDW Std Deviation Plt Count Neut % (Auto) Lymph % (Auto) [place] % (Auto) Eos % (Auto) Baso % (Auto) Neut # (Auto) Lymph # (Auto) [place] # (Auto) Eos # (Auto) Baso # (Auto) Immature Gran # (Auto) Absolute Nucleated RBC Immature Gran % Nucleated RBC % ESR PT INR APTT D-Dimer Puncture Site Right Radial ABG pH 7.43 ABG pCO2 30 L ABG pO2 61 L D ABG HCO3 19 L ABG O2 Saturation 92 ABG Base Excess -4 L FiO2 21 Sodium Potassium 2.5 L* Chloride Carbon Dioxide Anion Gap BUN Creatinine Estim Creat Clear Calc eGFR BUN/Creatinine Ratio Glucose Calculated Osmolality Lactic Acid 2.7 H Calcium Corrected Calcium Magnesium 1.9 Total Bilirubin Direct Bilirubin AST ALT Alkaline Phosphatase Troponin I C-Reactive Prot, Quant B-Natriuretic Peptide Total Protein Albumin Globulin Albumin/Globulin Ratio Procalcitonin TSH Free T4 Ur Collection Type Urine Color Urine Clarity Urine pH Ur Specific [place] Urine Protein Urine Glucose (UA) Urine Ketones Urine Blood Urine Nitrite Urine Bilirubin Urine Urobilinogen (Auto) Ur Leukocyte Esterase Urine RBC Urine WBC Ur Squamous Epith Cells Urine Bacteria Ur Culture Indicated? 09/03/24 09/03/24 09/03/24 02:00 05:08 07:11 WBC 21.6 H D RBC 3.41 L Hgb 11.2 L D Hct 31.7 L MCV 93 MCH 32.8 MCHC 35.3 RDW Std Deviation 52.2 H Plt Count 147 Neut % (Auto) 85 H Lymph % (Auto) 2 L [place] % (Auto) 5 Eos % (Auto) 0 Baso % (Auto) 0 Neut # (Auto) 18.3 H Lymph # (Auto) 0.5 L [place] # (Auto) 1.2 H Eos # (Auto) 0.0 Baso # (Auto) 0.0 Immature Gran # (Auto) 1.66 H Absolute Nucleated RBC 0.00 Immature Gran % 8 H Nucleated RBC % 0 ESR PT 16.3 H INR 1.5 H APTT 50.2 H D D-Dimer Puncture Site ABG pH ABG pCO2 ABG pO2 ABG HCO3 ABG O2 Saturation ABG Base Excess FiO2 Sodium 137 Potassium 4.7 D Chloride 111 H Carbon Dioxide 18.2 L Anion Gap 8 BUN 11 Creatinine 0.9 Estim Creat Clear Calc 59.2 L eGFR > 60 BUN/Creatinine Ratio 12 Glucose 147 H Calculated Osmolality 276 Lactic Acid 2.7 H 3.6 H Calcium 7.5 L D Corrected Calcium 8.3 L Magnesium 1.8 Total Bilirubin 0.3 D Direct Bilirubin AST 11 ALT 8 L Alkaline Phosphatase 77 Troponin I C-Reactive Prot, Quant B-Natriuretic Peptide Total Protein 5.1 L Albumin 3.0 L D Globulin 2.1 L Albumin/Globulin Ratio 1.4 Procalcitonin TSH Free T4 Ur Collection Type Urine Color Urine Clarity Urine pH Ur Specific [place] Urine Protein Urine Glucose (UA) Urine Ketones Urine Blood Urine Nitrite Urine Bilirubin Urine Urobilinogen (Auto) Ur Leukocyte Esterase Urine RBC Urine WBC Ur Squamous Epith Cells Urine Bacteria Ur Culture Indicated? ABG Interpretation ABG results: 09/02/24 09/02/24 20:00 20:59 ABG pH 7.43 7.43 ABG pCO2 33 30 L ABG pO2 39 L* 61 L D ABG HCO3 22 19 L ABG O2 Saturation 72 L 92 ABG Base Excess -2 -4 L Quality Measures Quality Measures sepsis Current suspected stage: ruled out Possible source: pulmonary Blood cultures ordered: yes Antibiotic ordered: Yes Assessment & Plan Assessment Current Active Medications: Generic Name Dose Route Start Last Admin Trade Name Freq PRN Reason Stop Dose Admin Acetaminophen 650 mg 09/03/24 09:14 Acetaminophen 325 Mg Tablet PO 10/03/24 00:00 Q6H PRN pain(1-3) and Fever >100.4 Hydrocodone Bitart/Acetaminophen 1 tab 09/03/24 00:00 Hydrocodone/Apap 5/325 Tablet PO 09/08/24 00:00 Q4HR PRN PAIN SCALE 4-10(Mod-Sev Albuterol/Ipratropium 3 ml 09/03/24 01:00 09/03/24 07:26 Albuterol/Ipratropium (Duoneb) Rt Suzi 3 Ml Nebu INH 10/03/24 00:59 3 ml Q6HRRT LYLE Administration Albuterol/Ipratropium 3 ml 09/03/24 07:35 Albuterol/Ipratropium (Duoneb) Rt Suzi 3 Ml Nebu INH 10/03/24 07:34 Q2HR PRN SHORTNESS OF BREATH OR WHEEZE Azithromycin 500 mg 09/03/24 00:10 09/03/24 01:05 Azithromycin 250 Mg Tablet PO 09/10/24 00:09 500 mg DAILY@2100 LYLE Administration Heparin Sodium/Dextrose 25,000 unit in 250 mls @ 11.431 mls/hr 09/03/24 00:15 09/03/24 09:26 Heparin In D5w Ivpb IV 09/17/24 00:14 18 units/kg/hr .[id number] LYLE 11.431 mls/hr Titration Protocol 18 UNITS/KG/HR Ceftriaxone Sodium/Dextrose 1 gm in 50 mls @ 100 mls/hr 09/03/24 21:00 Rocephin/D5w 1gm Iv Premix IV 09/10/24 20:59 QDAY@2100 LYLE Sodium Chloride 1,000 mls @ 65 mls/hr 09/03/24 04:15 09/03/24 04:37 Ns IV 09/03/24 19:38 65 mls/hr .[id number] LYLE Administration Levothyroxine Sodium 125 mcg/ 150 mcg 09/03/24 07:45 09/03/24 07:57 Levothyroxine Sodium 25 mcg PO 10/03/24 07:44 150 mcg ACBR LYLE Administration Methylprednisolone Sodium Succinate 40 mg 09/03/24 09:00 09/03/24 08:00 Methylprednisolone Sod Succ 40 Mg Vial IVP 09/10/24 08:59 40 mg QDAY LYLE Administration Ondansetron HCl 4 mg 09/03/24 00:00 Ondansetron Inj 2 Mg/Ml Inj 2 Ml IVP 10/03/24 00:00 Q6H PRN NAUSEA OR VOMITING Protocol Pantoprazole Sodium 40 mg 09/03/24 09:00 09/03/24 08:00 Pantoprazole 40 Mg Tablet PO 10/03/24 08:59 40 mg QDAY LYLE Administration Sodium Chloride 9 ml 09/02/24 18:50 09/03/24 09:26 Sodium Chloride Rt Suzi 0.9% 3 Ml Nebu INH 10/02/24 18:49 3 ml PRN PRN Administration SOLN Plan 59-year-old female with past medical history of hypothyroidism, hypertension, COPD/asthma, and active smoker who was admitted to the hospital on 09/03/2024 for acute hypoxic respiratory failure likely secondary to pulmonary embolism and community-acquired pneumonia. #Acute hypoxic respiratory failure #High risk pulmonary embolism #Community-acquired pneumonia #29 mm cavitary lesion #COPD exacerbation #Cocci/TB rule out Patient states that she started having increased shortness of breath today which was out of the ordinary compared to her normal shortness of breath given her COPD/asthma. Patient denied having any productive cough with any blood change sputum. Patient denies having any history of blood clots or traveling outside the [place]. Patient denied any night sweats or recent weight loss. Chest CTA showed pulmonary embolism of the distal main right pulmonary artery as well as a upper and lower lobe pulmonary artery branches. Also showed a thin- walled 29 mm cavitary lesion in the right upper lobe which was concerning for possible tuberculosis versus pulmonary infarction. Patient's chest x-ray that show bibasilar pneumonia D-dimer elevated 2940 Patient saturating well on nasal cannula, but was noted to have wheezing bilaterally. PESI score 121, class IV high risk Plan: -Heparin drip per protocol -Azithromycin and ceftriaxone 09/03/2024? -DuoNebs scheduled every 6 hours/DuoNebs as needed -IV Solu-Medrol 40 mg daily -Echo ordered, Cocci ordered-pending, Blood cultures ordered, AFBs x 3 ordered- pending -QuantiFERON ordered -Isolation precautions Airborne precautions -Will continue to monitor -Continue maintenance fluids - Consulted cardiology, appreciate recommendations #Lactic acidosis #Electrolyte imbalance #Hypokalemia #Hypomagnesemia Patient came with potassium of 2.5 and magnesium of 1.5 In the ED patient received 2 g magnesium and 50 mEq of potassium Patient had a lactic acid of 2.2 and uptrend to 2.7 Plan: -Trend lactate -Will repeat potassium and magnesium levels -Will replete as necessary #Right lower extremity edema Patient has 2+ right lower extremity pitting edema compared to left lower extremity which only shows some trace edema. No echo on file Venous Doppler was negative for DVT Peripheral pulses were present bilaterally Patient on diuretics at home, was recently started on spironolactone, will hold for now Plan: -Echo ordered - Consulted cardiology, appreciate recommendations #Hypothyroidism Patient's TSH was 6.47 and free T4 was 1.6 on admission -Resume home dose levothyroxine. #Hx of hypertension Patient's blood pressure has been stable during admission Will hold off on antihypertensive medications for now. Disposition: Patient admitted to telemetry for AHRF 2/2 PE and PNA. Diet: Cardiac GI prophylaxis: protonix DVT prophylaxis: Heparin drip Code: Full Case discussed with Attending Dr. Kerns. Karina Parr PGY1 Disclaimer: This note was dictated by speech recognition. Minor errors in audit practice intern may be present due to voice recognition software. Attending Provider Attestation/Addendum Face to face evaluation was performed by me. I have personally seen and examined the patient. I discussed the assessment and plan with the entire medicine team. I reviewed available medical records, imaging studies, laboratory results. I agree with the above subjective data, objective findings, assessment and plan except as corrected by me or noted below Acute hypoxic with failure Acute PE Sinus tachycardia Community-acquired pneumonia COPD with acute exacerbation Lactic acidosis - continue with empiric antibiotics, systemic steroids, breathing treatments. Check for cocci, AFB times as well as-QuantiFERON TB. Isolation for now. IV heparin drip for PE, monitor blood pressure closely -Resuscitate with IV fluids if blood pressure drops ordering echo cardiology consulted will follow recommendations. More than > 30 minutes spent on the encounter Cavitary lesion of lung
--- NOTE | 2024-09-03 13:12 | ESCONSULT_ITS ---
HPI Data of Consult Requesting Physician: Tavon Mak MD Admitting Provider: Tavon Mak MD Attending Provider: Tavon Mak MD Primary Care Provider: Physician No Primary/Family Consult Narrative History of present illness: CC: SOB for several days and wheezing Patient is a 59 year old female with a past medical history of hypertension, hypothyroidism, COPD, Multiple Sclerosis (MS) osteoarthritis, and 20 pack year history (current smoker). Patient presented to the emergency room via EMS with chief complain of SOB and wheezing per chart review had been ongoing for several days. On admission, patient denied pyrexia or chills at home, and denied recent weight loss. Denied increase phlegm and denied increased cough. Admitted onto floors for acute hypoxic respiratory failure secondary to COPD exacerbation and PE. ER Course: Initially came in tachycardic, tachypn eic, hypoxic, and afebrile. Initial labs were relevant for leukocytosis, hypercoagulability, elevated D-dimer, hypokalemia, non-anion gap metabolic acidosis, lactic acidosis, hypomagnesemia, elevated CRP, and elevated procalcitonin. Initial imaging included chest CTA which showed pulmonary embolism in the distal right main artery as well as the upper and lower lobe right pulmonary artery branches. Chest CTA also showed a 29 mm cavitary lesion in the right upper lobe which is suspicious for active tuberculosis versus pulmonary infarction. Chest x-ray also showed bibasilar pneumonia. Venous Doppler of the lower extremities did not show any DVT. 09/03/2024: Cardiology consulted for PE, as noted on CTA chest, for possible thrombectomy. PMH: -HTN, Hypothyroidism, COPD, MS, Osteoarthritis -Current smoker Medications: Albuterol inhaler, Fluticasone inhalter (Arnuity), Levothyroxine 150 mcg, Lisinopril 10 mg qday, Spironolactone 50 mg qday Ibuprofen 800 mg PO BID, Vitamin D2 Surgical history: Cataract surgery (?), Achilles tendon repair, Cholecystectomy Social: Current Smoker, 1/2 pack for 40 years-->20 pack year history Denied Alcohol Use Denied Illicit Drug use PFH: Unknonw Allergies: Adhesive tape, prednisone, penicillins, aspirin, sulfa, and sulfacetamide cc:: cc: Tavon Mak MD Review of Systems Review of Systems Narrative Review of Systems: General appearance: NO weight change, no fatigue, NO weakness, NO fever, NO chills, NO night sweats, No cough Skin: NO rash, NO itching, NO sores, NO moles HEENT: NO Trauma, NO nausea, NO vomiting, NO visual changes, NO blurry vision, NO double vision, NO tinnitus, NO vertigo, NO ear discharge, NO rhinorrhea, NO stuffiness, NO sneezing, NO allergy, NO epistaxis. NO Hoarseness, NO sore throat, NO swollen neck. Cardiac: NO Palpitations, NO dyspnea on exertion, NO orthopnea, NO paroxysmal nocturnal dyspnea, NO edema Respiratory: YES Shortness of Breath, YES Wheezing, NO Cough, NO Sputum, NO hemoptysis GI:NO appetite, NO nausea, NO vomiting, NO dysphagia, NO changes in bowel frequency, NO stool color, NO diarrhea, NO constipation, NO hemetemesis, NO hemorrhoids, NO melena, NO hematechezia, NO abdominal pain, NO jaundice Renal: NO frequency, NO hesitancy, NO urgency, NO hematuria, NO nocturia, NO incontinence MSK: NO muscle weakness, NO gout, NO arthritis, NO muscle stiffness Neuro: NO headaches, NO tremors, NO weakness, NO paralysis, NO seizures, NO loss of consciousness, NO numbness. Hem: NO anemia, NO easy bruising/bleeding, NO petechiae, NO purpura Endo: NO heat/cold intolerance, NO excessive sweating, NO polyuria, NO polydipsia, NO polyphagia, Yes thyroid problems, NO diabetes Pysch: NO mood, NO anxiety, NO depression Exam Vital Signs Temp Pulse Resp BP Pulse Ox O2 Del Method O2 Flow Rate 97.5 F 100 22 H 116/84 97 Nasal Cannula 2 09/03/24 12:09/03/24 12:09/03/24 12:09/03/24 12:09/03/24 12:09/03/24 12:09/03/24 12:00 Narrative Exam General Appearance: Alert & Oriented X3, well-nourished female who is lying in bed in no acute distress HEENT: Skull symmetrical and atraumatic. Conjunctivae pin and moist. Pupils equal, round, reactive to light and accommodation (PERRL). Cardio: Normal Rate and Rhythm with S1 and S2 heart sounds. No murmurs or extra heart sounds auscultated. No bruits on carotid auscultation.Trace peripheral edema Lungs: Symmetric with good expansion. Wheezing noted bilaterally Abdomen: Non-tender, Non-distended, Normal Reactive Bowel Sounds Neuro: Alert, cooperative, oriented to person, place, and time. Speech clear. CN grossly intact. Upper motor strength 5/5 and Lower motor strength 5/5. Sensation intact. Results Labs 09/04/24 05:06 09/04/24 15:30 Labs: Short CBC 09/02/24 09/03/24 Range/Units 19:09 05:08 WBC 14.3 H 21.6 H D (3.6-11.0) Thou/mm3 Hgb 14.4 11.2 L D (12.0-16.0) g/dL Hct 40.7 31.7 L (36.0-46.0) % Plt Count 173 D 147 (140-440) Thou/mm3 BMP 09/02/24 09/03/24 09/03/24 19:09 00:32 07:11 Sodium 133 L 137 Potassium 2.5 L* 2.5 L* 4.7 D Chloride 105 111 H Carbon Dioxide 19.5 L 18.2 L BUN 10 11 Creatinine 0.8 0.9 Glucose 107 H 147 H Calcium 9.0 7.5 L D Cardiac Enzymes 09/02/24 Range/Units 19:09 Troponin I < 0.020 (0.0-0.045) ng/mL Liver Function 09/02/24 09/03/24 Range/Units 19:09 07:11 Total Bilirubin 0.8 0.3 D (0.3-1.2) mg/dL Direct Bilirubin 0.3 (0.0-0.3) mg/dL AST 12 11 (0-34) U/L ALT 8 L 8 L (10-49) U/L Alkaline Phosphatase 87 77 (46-116) U/L Albumin 3.8 3.0 L D (3.4-4.8) gm/dL Urine 09/02/24 Range/Units 19:40 Urine Color Yellow (Lt Yel-Yel) Urine Clarity Turbid A (Clear/Hazy) Urine pH 6.0 (5.0-7.0) Ur Specific [place] 1.011 (1.001-1.035) Urine Protein Trace (Neg - Trace) Urine Glucose (UA) Negative (Negative) ABG Interpretation ABG results: 09/02/24 09/02/24 20:00 20:59 ABG pH 7.43 7.43 ABG pCO2 33 30 L ABG pO2 39 L* 61 L D ABG HCO3 22 19 L ABG O2 Saturation 72 L 92 ABG Base Excess -2 -4 L Quality Measures Quality Measures sepsis Current suspected stage: sepsis Possible source: pulmonary Blood cultures ordered: yes Antibiotic ordered: Yes Medications Home Medications and Allergies Home Medications ?Medication ?Instructions ?Recorded ?Confirmed ?Type montelukast 10 mg tablet 1 tab PO HS ##0 09/01/16 History (Singulair) lisinopril 10 mg tablet 20 mg PO QDAY 05/02/1709/03 History albuterol sulfate 90 mcg/actuation 1 puff inhalation Q 6H PRN 03/29/19 09/03/24 History aerosol inhaler Shortness Of Breath fluticasone furoate 200 1 inh inhalation QDAY 09/03/24 History mcg/actuation blister powder for inhalation (Arnuity Ellipta) ibuprofen 800 mg tablet 800 mg PO BID 04/14/2209/03 History Allergies Allergy/AdvReac Type Severity Reaction Status Date / Time adhesive tape Allergy Severe ANY Verified 09/02/24 18:50 MEDICAL TAPE / RASH prednisone Allergy Severe CRAZY Verified 09/02/24 18:50 Penicillins Allergy Mild Rash Verified 09/02/24 18:50 aspirin Allergy Unknown Verified 09/02/24 18:50 Sulfa (Sulfonamide Allergy Unknown Verified 09/02/24 18:50 Antibiotics) sulfacetamide Allergy Unknown Verified 09/02/24 18:50 Visit Medications Acetaminophen (Acetaminophen 325 Mg Tablet) 650 mg PO Q6H PRN PRN Reason: pain(1-3) and Fever >100.4 Stop: 10/03/24 00:00 Hydrocodone Bitart/Acetaminophen (Hydrocodone/Apap 5/325 Tablet) 1 tab PO Q4HR PRN PRN Reason: PAIN SCALE 4-10(Mod-Sev Stop: 09/08/24 00:00 Albuterol/Ipratropium (Albuterol/Ipratropium (Duoneb) Rt Suzi 3 Ml Nebu) 3 ml INH Q6HRRT LYLE Stop: 10/03/24 00:59 Last Admin: 09/03/24 07:26 Dose: 3 ml Albuterol/Ipratropium (Albuterol/Ipratropium (Duoneb) Rt Suzi 3 Ml Nebu) 3 ml INH Q2HR PRN PRN Reason: SHORTNESS OF BREATH OR WHEEZE Stop: 10/03/24 07:34 Azithromycin (Azithromycin 250 Mg Tablet) 500 mg PO DAILY@2100 [facility] Stop: 09/10/24 00:09 Last Admin: 09/03/24 01:05 Dose: 500 mg Heparin Sodium/Dextrose (Heparin In D5w Ivpb) 25,000 unit in 250 mls @ 11.431 mls/hr IV .[id number] [facility]; Protocol Stop: 09/17/24 00:14 Last Titration: 09/03/24 09:26 Dose: 18 units/kg/hr, 11.431 mls/hr Ceftriaxone Sodium/Dextrose (Rocephin/D5w 1gm Iv Premix) 1 gm in 50 mls @ 100 mls/hr IV QDAY@2100 [facility] Stop: 09/10/24 20:59 Sodium Chloride (Ns) 1,000 mls @ 65 mls/hr IV .[id number] [facility] Stop: 09/03/24 19:38 Last Admin: 09/03/24 04:37 Dose: 65 mls/hr Levothyroxine Sodium 125 mcg/ (Levothyroxine Sodium 25 mcg) 150 mcg PO ACBR [facility] Stop: 10/03/24 07:44 Last Admin: 09/03/24 07:57 Dose: 150 mcg Methylprednisolone Sodium Succinate (Methylprednisolone Sod Succ 40 Mg Vial) 40 mg IVP QDAY [facility] Stop: 09/10/24 08:59 Last Admin: 09/03/24 08:00 Dose: 40 mg Ondansetron HCl (Ondansetron Inj 2 Mg/Ml Inj 2 Ml) 4 mg IVP Q6H PRN; Protocol PRN Reason: NAUSEA OR VOMITING Stop: 10/03/24 00:00 Pantoprazole Sodium (Pantoprazole 40 Mg Tablet) 40 mg PO QDAY [facility] Stop: 10/03/24 08:59 Last Admin: 09/03/24 08:00 Dose: 40 mg Sodium Chloride (Sodium Chloride Rt Suzi 0.9% 3 Ml Nebu) 9 ml INH PRN PRN PRN Reason: SOLN Stop: 10/02/24 18:49 Last Admin: 09/03/24 09:26 Dose: 3 ml Discontinued Medications Acetaminophen (Acetaminophen 325 Mg Tablet) 650 mg PO Q6H PRN PRN Reason: pain and Fever >100.4 Stop: 10/03/24 00:00 Diphenhydramine HCl (Diphenhydramine Inj 50 Mg/Ml Vial) 50 mg IVP X1 STA Stop: 09/02/24 18:51 Last Admin: 09/02/24 19:16 Dose: 50 mg Enoxaparin Sodium (Enoxaparin Sod Inj 60 Mg/0.6 Ml Syringe) 60 mg SC X1 ONE Stop: 09/02/24 23:14 Last Admin: 09/02/24 23:58 Dose: 60 mg Magnesium Sulfate (Magnesium Sulfate Ivpb) 2 gm in 50 mls @ 25 mls/hr IV X1 ONE Stop: 09/02/24 20:49 Last Infusion: 09/02/24 21:31 Dose: Infused Sodium Chloride (Ns) 1,000 mls @ 999 mls/hr IV .Q1H1M ONE Stop: 09/02/24 20:28 Last Infusion: 09/02/24 21:31 Dose: Infused Ceftriaxone Sodium/Dextrose (Rocephin/D5w 1gm Iv Premix) 1 gm in 50 mls @ 100 mls/hr IV X1 ONE Stop: 09/02/24 20:34 Last Infusion: 09/02/24 21:25 Dose: Infused Acetaminophen (Ofirmev Inj) 1,000 mg in 100 mls @ 250 mls/hr IV X1 ONE Stop: 09/02/24 20:51 Last Infusion: 09/02/24 21:25 Dose: Infused Sodium Chloride (Ns) 1,000 mls @ 999 mls/hr IV .Q1H1M ONE Stop: 09/02/24 21:28 Last Infusion: 09/02/24 22:50 Dose: Infused Vancomycin HCl 1,500 mg/ (Sodium Chloride) 500 mls @ 150 mls/hr IV X1 ONE Stop: 09/03/24 00:14 Last Infusion: 09/03/24 00:39 Dose: Infused Potassium Chloride (Kcl Ivpb) 10 meq in 100 mls @ 100 mls/hr IV X1 ONE Stop: 09/02/24 21:55 Last Infusion: 09/02/24 23:31 Dose: Infused Potassium Chloride (Kcl Ivpb) 10 meq in 100 mls @ 100 mls/hr IV Q1H LYLE Stop: 09/03/24 05:06 Last Admin: 09/03/24 05:50 Dose: 75 mls/hr Sodium Chloride (Ns) 500 mls @ 999 mls/hr IV .Q31M ONE Stop: 09/03/24 04:40 Last Infusion: 09/03/24 05:13 Dose: Infused Lactated Ringer's (Lactated Ringers) 1,000 mls @ 999 mls/hr IV .Q1H1M ONE Stop: 09/03/24 10:30 Last Admin: 09/03/24 09:45 Dose: 999 mls/hr Ketorolac Tromethamine (Ketorolac Inj 30 Mg/Ml Vial) 30 mg IVP X1 ONE Stop: 09/02/24 20:29 Last Admin: 09/02/24 20:39 Dose: 30 mg Levalbuterol HCl (Levalbuterol Rt 1.25 Mg/0.5 Ml Nebu) 2.5 mg INH X1 ONE Stop: 09/02/24 18:51 Last Admin: 09/02/24 19:23 Dose: 2.5 mg Levothyroxine Sodium (Levothyroxine Sodium 25 Mcg Tablet) 150 mcg PO QDAY LYLE Stop: 10/03/24 08:59 Methylprednisolone Sodium Succinate (Methylprednisolone Sod Succ 62.5 Mg/Ml 2ml Vial) 125 mg IVP X1 ONE Stop: 09/02/24 18:51 Last Admin: 09/02/24 19:16 Dose: 125 mg Potassium Chloride (Potassium Chloride 10% 20 Meq/15 Ml Udc) 40 meq PO X1 ONE Stop: 09/02/24 20:57 Last Admin: 09/02/24 21:15 Dose: 40 meq Sodium Chloride (Sodium Chloride Rt 10% 15 Ml Nebu) 5 ml INH X1 ONE Stop: 09/03/24 00:06 Last Admin: 09/03/24 00:44 Dose: 5 ml Sodium Chloride (Sodium Chloride Rt 10% 15 Ml Nebu) 5 ml INH X1 ONE Stop: 09/03/24 09:03 Assessment & Plan Assessment Patient is a 59 year old female with a past medical history of hypertension, hypothyroidism, COPD, Multiple Sclerosis (MS) osteoarthritis, and 20 pack year history (current smoker) who was admitted on 09/02/2024 for acute hypoxic respiratory failure, COPD exacerbation, and PE. Cardiology consulted for PE and possible thrombectomy. #Provoked Pulmonary Embolism #R. Distal Pulmonary Artery Emboli #Small upper and lower lobe pulmonary artery branches Patient presented with provoked PE, at the right distal pulmonary artery and small upper/lower lobes, not permissible for thrombectomy. PE likely provoked int he setting of current smoker about 1/2 pack a day for the past 40 years. Less likely secondary to trauma or travel vs malignancy can not be ruled out. Diagnostics: CTA Chest (09/02/2024): Positive for pulmonary artery emboli in the distal right main pulmonary artery as well as upper and lower lobe right pulmonary artery branches. 29 mm cavitary lesion in the right upper lobe with surrounding pneumonia, highest on the differential diagnosis is infectious processes including active, tuberculosis, pulmonary infarction in the right upper lobe not excluded. Mild bilateral hydronephrosis Echo( 09/03/2024): Normal LV size and function. Estimated EF -55-60%. Normal diastolic function.RV normal size and function.No evidence of any right heart strain. Trace Mr and TR. No pericardial effusion. Venous Doppler LE BI: negative. D-Dimber 2940 BNP 53 PESI: 121 points, class IV high risk Plan -Continue Heparin drip -holding off transition to Eliquis given multiple problems including cavitary lesion. -Consider hypercoagulable work up as outpatient -monitor for obstructive shock #Right Lower extremity Edema Trace edema noted, likely in the setting of venous insufficiency vs less likley secondary to CHF as BNP normal and cxr negative to vascualr congestion vs DVT, consider repeat US. plan -Continue to monitor and consider repeat venous US -Heparin drip on board #Sepsis rule out, secondary to Pneumonia #Cavitary Lesion #Pneumonia #Leukocytosis Patient noted to have a cavitary lesion likely in the setting of cocci given endemic region to the [place] vs less likely secondary to TB but can not be ruled out vs consider aspergillus or other less common such as actinomyces. Cxr (09/02/2024): Bibasilar pneumonia CTA Chest (09/03/2024): Positive for pulmonary artery emboli in the distal right main pulmonary artery as well as upper and lower lobe right pulmonary artery branches. 29 mm cavitary lesion in the right upper lobe with surrounding pneumonia,highest on the differential diagnosis is infectious processes including active tuberculosis, pulmonary infarction in the right upper lobe not excluded. UA positive SOFA 4 points Plan -Azithromycin and Ceftriaxone (09/03/2024--) -Airborne precations -MRSA Screening -Sputum Culture -Blood Culture negative 24 hrs -Cocci , AFB, QTF Pending #COPD exacerbation #COPD likely secondary to COPD exacerbation given wheezing noted on physical exam and continued active smoker. Plan -Azithromycin and Ceftriaxone (09/03/2024--) -Duonebs Q6HRs, as well as PRN -Budesonide 0.5 BID -Methylprednisolone 40 mg IVP qday (use with caution if Cocci positive) #Lactic Acid Continue to trend lactic acid given 3.6 repeat Plan -Primary team following #Hypothyroidism Home medication of Levothyroxine. TSH 6.47 (H) Free T4 1.46 Plan -Continue home medication of Levothyroxine 150 mcg #Current Smoker Extensive smoking history, 20 pack year, 40 years about 1/2 pack a day. 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 FEN: Cardiac Diet DVT: Heparin Drip PE Code: Full Code - The patient's plan was discussed with attending Dr. Tiesha Edward MD PGY1 Internal Medicine Attending Provider Attestation/Addendum I have personally seen and examined the patient separately on the above date of service and discussed the plan of care with the resident. I reviewed the resident Dr. Teri Edward consultation progress note and agree with the resident findings and plan in the note above and have also edited the documentation to reflect my findings and plan. 59-year-old female with a past medical history of essential hypertension, multiple sclerosis, hypothyroidism, COPD with more than [id number] smoking history, current smoker, osteoarthritis presented to the emergency department for further evaluation of shortness of breath as well as wheezing for the past few days. In the emergency department patient had a chest CTA which showed and pulmonary embolism involving the distal right main artery as well as the upper and lower lobar pulmonary artery branches. Chest CT also showed a 29 mm cavitary lesion in the right upper lobe which is suspicious for active TB versus pulmonary infarction as well as pneumonia. Patient was tachycardic tachypneic and hypoxic on arrival. Lab data show elevated WBC count along with elevated D-dimer, CRP and elevated procalcitonin. Lactic acidosis along with hypokalemia hypomagnesemia were noted. Cardiology was consulted for further evaluation of the pulm embolism and for possible intervention with thrombectomy. Assessment and plan 1. Acute pulmonary embolism 2. Acute hypoxic respiratory failure secondary to COPD exacerbation, pneumonia and small PE 3. Sepsis secondary to possible pneumonia 4. Right upper lung cavitary lesion-ruling out TB 5. Pneumonia 6. COPD exacerbation 7. Current smoker with more than [id number] smoking history 8. Lactic acidosis 9. Hypertension 10. Hypothyroidism 11. Electrolyte abnormalities including hypomagnesemia as well as hypokalemia. Reviewed the CTA and patient does have pulmonary embolus in the distal right main pulmonary artery at the bifurcation of the right upper and middle pulmonary arteries with thrombus burden is small with significant flow noted to the right upper and right middle pulmonary arteries. Rest of the CTA only showed minimal thrombus burden in the right lower lobe artery branches and right upper lobe artery branches. BNP was only 53, troponin was negative, CTA did not show any significant right heart strain. Echocardiogram was performed and showed normal RV function without any evidence of RV strain. On examination patient also has significant wheezing and has the cavitated lesion in the right upper lobe and pneumonia which could all explain her hypoxia with tachycardia and tachypnea. Given the above findings patient has only a small thrombus burden and does not require any kind of advanced interventions including any mechanical thrombectomy and recommend to continue medical management with heparin drip for now and transition to Eliquis as per PE protocol if no further procedures are planned. On examination patient does have right lower extremity swelling but duplex of the bilateral legs are negative. Recommend to repeat the ultrasound for DVT and also any kind of venous insufficiency. Recommend aggressive treatment of the COPD exacerbation Patient counseled extensively to quit smoking completely and recommend to offer nicotine patch. Further management of the pneumonia as per the primary team. Patient does have a cartilage lesion noted in the right upper lobe and primary team to continue workup for the same including ruling out TB. Recommend to gradually replace potassium and magnesium and keep potassium greater than 4 and magnesium greater than 2.0. Management of rest of the medical conditions as per primary team and other consultants. Thank you for the consult and allowing me to participate in the care of the patient. Cardiology will continue to follow. Avelino Motley M.D. Interventional Cardiology
--- NOTE | 2024-09-03 14:13 | XR_ITS ---
Examination: AP chest single view Technique one AP portable semiupright chest single view Date and time: September 03, 2024 1447 hours Comparison September 02, 2024 1916 hours INDICATIONS: Shortness of breath acute hypoxic respiratory failure FINDINGS: Prominent pneumonia right base Possible developing cavitary lesion in the right lower lobe 3.9 cm Normal heart size IMPRESSION: Prominent pneumonia right base Consider CT chest follow-up without contrast to confirm 3.9 cm cavitary lesion in the right lower lobe
--- NOTE | 2024-09-03 14:36 | PD.RESEVENT ---
Documentation for date of: 09/03/24 Event Note Event Note: Patient had rapid response called around 2 PM for tachypnea and spO2 downtrending to 88 on 2 L, oxygen was uptitrated to 4 L on examination patient's SpO2 96. She complains of shortness of breath vitals at bedside reviewed, patient tachypneic and respiratory rate high 20s, blood pressure within normal limit, per nurse at bedside patient has not had any urinary output since morning. Budesonide inhaler breathing treatment ordered, ordered 2 g of mag, additional x 1 methylprednisolone, bladder scan ordered showed urinary retention, [place] catheter was placed, had 1 L urine output. Vulvovaginal candidiasis noted started on clotrimazole cream, fluconazole 150 oral x 1 given. Will follow chest x-ray. Will continue to monitor patient. Case discussed with Attending Dr. Kerns. Karina Parr PGY1 Disclaimer: This note was dictated by speech recognition. Minor errors in salesforce business analyst may be present due to voice recognition software.
[2024-09-03] MEDS: Magnesium Sulfate 2 GM Ivpb 2 GM/50 ML BAG IV (14:39)
[2024-09-03 15:20] LABS: Cocci Serology, IgM Negative (Negative)
[2024-09-03 16:11] LABS: Partial Thromboplastin Time 61.4 Seconds (22.0-36.0)
--- NOTE | 2024-09-03 16:25 | PC.SS ---
Follow up note: On IV antibiotic. On IV Heprin and Cardio is consulting. Pt had rapid response.
[2024-09-03] MEDS: FLUCONAZOLE 150 MG TABLET PO (16:33)
[2024-09-03 17:15] LABS: Cult AFB Sendout- Sputum* See Sep Rpt
[2024-09-03] MEDS: BUDESONIDE RT 0.5 MG/2 ML NEBU INH (19:15)
[2024-09-03] MEDS: cefTRIAXone/D5w 1gm IV premix 1 GM/50 ML BAG IV (21:35)
[2024-09-03] MEDS: CLOTRIMAZOLE VAG CR 1% 45 GM TUBE VAGINAL (21:39)
[2024-09-03] MEDS: ACETAMINOPHEN 325 MG TABLET 650 MG PO (22:46)
[2024-09-03] MEDS: ONDANSETRON INJ 2 MG/ML INJ 2 ML 4 MG IVP (22:58)
[2024-09-04] VITALS (10 sets, daily range): BP systolic 95–132; BP diastolic 68–94; PULSE 84–100; RESP 20–26; TEMP 36.2–37; O2SAT 93–99
[2024-09-04 00:09] LABS: Partial Thromboplastin Time 58.7 Seconds (22.0-36.0)
[2024-09-04] MEDS: ALBUTEROL/IPRATROPIUM (Duoneb) RT SOL 3 ML NEBU INH ×4 (01:17→19:14)
[2024-09-04] MEDS: LACTULOSE SYRUP 20 GM/30 ML UDC PO (02:32)
[2024-09-04] MEDS: LEVOTHYROXINE SODIUM 125 MCG, LEVOTHYROXINE SODIUM 25 MCG 150 MCG PO (05:24)
--- NOTE | 2024-09-04 05:31 | PC.NURSE ---
iv fluid bag completed- Saline locked iv.
[2024-09-04 06:01] LABS: Basophils % (Auto) 0 % (0-2.5); Eosinophils % (Auto) 0 % (0-10); Immature Granulocytes % (Auto) 4 % (0-0); Immature Granulocytes Auto 0.67 Thou/mm3 (0.00-0.00); Lymphocytes # (Auto) 0.5 Thou/mm3 (1.0-4.8); Lymphocytes % (Auto) 3 % (10-50); Mean Corpuscular HGB Conc 34.5 g/dl (31.0-37.0); Mean Corpuscular Hemoglobin 32.4 pg (25.0-35.0); Mean Corpuscular Volume 94 fL (80-100); Monocytes # (Auto) 0.7 Thou/mm3 (0.0-0.8); Monocytes % (Auto) 4 % (0-12); Neutrophils # (Auto) 14.1 Thou/mm3 (1.8-7.7); Neutrophils % (Auto) 89 % (37-80); Nucleated Red Blood Cell % 0 /100 WBC (0); Platelet Count 163 Thou/mm3 (140-440); RDW Standard Deviation 54.2 fL (36.4-46.3); Red Blood Count 3.09 Miln/mm3 (4.00-5.20); White Blood Count 15.9 Thou/mm3 (3.6-11.0)
--- NOTE | 2024-09-04 06:17 | PC.NURSE ---
PTT result pending.
[2024-09-04 06:25] LABS: Glucose Estimated Average 85 mg/dL (80-131); Hemoglobin A1C 4.6 % Hgb (4.8-6.0)
[2024-09-04 06:34] LABS: INR 1.2 (0.9-1.3); Partial Thromboplastin Time 54.8 Seconds (22.0-36.0)
[2024-09-04 06:38] LABS: Alanine Aminotransferase < 7 U/L (10-49); Albumin, Serum 2.7 gm/dL (3.4-4.8); Albumin/Globulin Ratio 1.4 (1.2-2.2); Alkaline Phosphatase 73 U/L (46-116); Anion Gap 10 (7-16); Aspartate Amino Transferase < 8 U/L (0-34); BUN/Creatinine Ratio 19 Ratio (12-20); Bilirubin,Total 0.2 mg/dL (0.3-1.2); Blood Urea Nitrogen 13 mg/dL (9-23); Calcium 7.7 mg/dL (8.3-10.6); Calcium (Corrected) 8.7 mg/dL (8.5-10.1); Carbon Dioxide 21.5 mMol/L (20.0-31.0); Chloride 111 mMol/L (98-107); Creatinine (Component) 0.7 mg/dL (0.6-1.3); Estimated Creatinine Clearance 77.1 mL/min (>60); Glucose 123 mg/dL (74-106); Magnesium 2.1 mg/dL (1.6-2.6); Osmolality,Calculated 284 (275-295); Sodium 142 mMol/L (136-145); Total Protein 4.7 gm/dL (5.7-8.2); eGFR > 60 See Note
[2024-09-04 06:43] LABS: Potassium 2.7 mMol/L (3.4-5.1)
[2024-09-04] MEDS: BUDESONIDE RT 0.5 MG/2 ML NEBU INH ×2 (06:53→19:14)
--- NOTE | 2024-09-04 06:59 | PC.NURSE ---
labor relations supervisor called and notified rn two sputum specimen sent yesterday was rejected by county- Need to recollect two sputum for afb. Relayed to day shift rn.
[2024-09-04] MEDS: POTASSIUM CHLORIDE 20 mEq TABCR 40 MEQ PO ×2 (08:03→11:20)
[2024-09-04] MEDS: PANTOPRAZOLE 40 MG TABLET PO (08:03)
[2024-09-04] MEDS: MG HYD/AL HYD/SIME (Maalox Reg) SUSP 30 ML UDC PO (08:33)
--- NOTE | 2024-09-04 08:43 | PD.RESPRO ---
Documentation for date of: 09/04/24 Subjective Subjective Interval history: CC: SOB for several days and wheezing Patient is a 59 year old female with a past medical history of hypertension, hypothyroidism, COPD, Multiple Sclerosis (MS) osteoarthritis, and 20 pack year history (current smoker). Patient presented to the emergency room via EMS with chief complain of SOB and wheezing per chart review had been ongoing for several days. On admission, patient denied pyrexia or chills at home, and denied recent weight loss. Denied increase phlegm and denied increased cough. Admitted onto floors for acute hypoxic respiratory failure secondary to COPD exacerbation and PE. 09/03/2024: Cardiology consulted for PE, as noted on CTA chest, for possible thrombectomy. 09/04/2024: Patient examined at bedside. Patient stated taking deep breaths is difficult but denied chest pain or chest pressure. Patient denied dyspnea. Patient SpO2 98% on 2 Liters NC. Patient denied diaphoresis, nausea or emesis. No thrombectomy planned. Exam Vital Signs Temp Pulse Resp BP Pulse Ox O2 Del Method O2 Flow Rate 98.6 F 85 24 H 132/94 H 99 Nasal Cannula 2 09/04/24 04:00 09/04/24 06:54 09/04/24 06:54 09/04/24 04:00 09/04/24 06:54 09/04/24 04:00 09/04/24 06:54 Narrative Exam General Appearance: Alert & Oriented X3, well-nourished female who is lying in bed in no acute distress HEENT: Skull symmetrical and atraumatic. Conjunctivae pin and moist. Pupils equal, round, reactive to light and accommodation (PERRL). Cardio: Normal Rate and Rhythm with S1 and S2 heart sounds. No murmurs or extra heart sounds auscultated. No bruits on carotid auscultation.Trace peripheral edema Lungs: Symmetric with good expansion. Wheezing noted bilaterally Abdomen: Non-tender, Non-distended, Normal Reactive Bowel Sounds Neuro: Alert, cooperative, oriented to person, place, and time. Speech clear. CN grossly intact. Upper motor strength 5/5 and Lower motor strength 5/5. Sensation intact. Objective Labs 09/04/24 05:06 09/04/24 15:30 Labs: Laboratory Results - last 24 hr 06/16/25 06/16/25 06/16/25 00:56 07:11 10:19 WBC RBC Hgb Hct MCV MCH MCHC RDW Std Deviation Plt Count Neut % (Auto) Lymph % (Auto) [place] % (Auto) Eos % (Auto) Baso % (Auto) Neut # (Auto) Lymph # (Auto) [place] # (Auto) Eos # (Auto) Baso # (Auto) Immature Gran # (Auto) Absolute Nucleated RBC Immature Gran % Nucleated RBC % PT 16.3 H INR 1.5 H APTT 50.2 H D Sodium 137 Potassium 4.7 D Chloride 111 H Carbon Dioxide 18.2 L Anion Gap 8 BUN 11 Creatinine 0.9 Estim Creat Clear Calc 59.2 L eGFR > 60 BUN/Creatinine Ratio [address] Glu mg/dL Hemoglobin A1c Calculated Osmolality 276 Calcium 7.5 L D Corrected Calcium 8.3 L Magnesium 1.8 Total Bilirubin 0.3 D AST 11 ALT 8 L Alkaline Phosphatase 77 Total Protein 5.1 L Albumin 3.0 L D Globulin 2.1 L Albumin/Globulin Ratio 1.4 Coccidioides IgM Ab Negative Mycobacterial Culture See Sep Rpt See Sep Rpt 09/03/24 09/03/24 09/04/24 15:29 23:15 05:06 WBC 15.9 H D RBC 3.09 L Hgb 10.0 L Hct 29.0 L MCV 94 MCH 32.4 MCHC 34.5 RDW Std Deviation 54.2 H Plt Count 163 Neut % (Auto) 89 H Lymph % (Auto) 3 L [place] % (Auto) 4 Eos % (Auto) 0 Baso % (Auto) 0 Neut # (Auto) 14.1 H Lymph # (Auto) 0.5 L [place] # (Auto) 0.7 Eos # (Auto) 0.0 Baso # (Auto) 0.0 Immature Gran # (Auto) 0.67 H Absolute Nucleated RBC 0.00 Immature Gran % 4 H Nucleated RBC % 0 PT 13.0 H D INR 1.2 APTT 61.4 H D 58.7 H 54.8 H Sodium 142 Potassium 2.7 L* D Chloride 111 H Carbon Dioxide 21.5 Anion Gap 10 BUN 13 Creatinine 0.7 Estim Creat Clear Calc 77.1 eGFR > 60 BUN/Creatinine Ratio [address]ucose [address] Glu mg/dL 85 Hemoglobin A1c 4.6 L Calculated Osmolality 284 Calcium 7.7 L Corrected Calcium 8.7 Magnesium 2.1 Total Bilirubin 0.2 L AST < 8 ALT < 7 L Alkaline Phosphatase 73 Total Protein 4.7 L Albumin 2.7 L Globulin 2.0 L Albumin/Globulin Ratio 1.4 Coccidioides IgM Ab Mycobacterial Culture ABG Interpretation ABG results: 09/02/24 09/02/24 20:00 20:59 ABG pH 7.43 7.43 ABG pCO2 33 30 L ABG pO2 39 L* 61 L D ABG HCO3 22 19 L ABG O2 Saturation 72 L 92 ABG Base Excess -2 -4 L Quality Measures Quality Measures sepsis Current suspected stage: sepsis Possible source: pulmonary Blood cultures ordered: yes Antibiotic ordered: Yes Assessment & Plan Assessment Current Active Medications: Generic Name Dose Route Start Last Admin Trade Name Freq PRN Reason Stop Dose Admin Acetaminophen 650 mg 09/03/24 09:14 09/03/24 22:46 Acetaminophen 325 Mg Tablet PO 10/03/24 00:00 650 mg Q6H PRN Administration pain(1-3) and Fever >100.4 Hydrocodone Bitart/Acetaminophen 1 tab 09/03/24 00:00 Hydrocodone/Apap 5/325 Tablet PO 09/08/24 00:00 Q4HR PRN PAIN SCALE 4-10(Mod-Sev Albuterol/Ipratropium 3 ml 09/03/24 01:00 09/04/24 06:54 Albuterol/Ipratropium (Duoneb) Rt Suzi 3 Ml Nebu INH 10/03/24 00:59 3 ml Q6HRRT LYLE Administration Albuterol/Ipratropium 3 ml 09/03/24 07:35 Albuterol/Ipratropium (Duoneb) Rt Suzi 3 Ml Nebu INH 10/03/24 07:34 Q2HR PRN SHORTNESS OF BREATH OR WHEEZE Azithromycin 500 mg 09/03/24 00:10 09/03/24 21:34 Azithromycin 250 Mg Tablet PO 09/10/24 00:09 500 mg DAILY@2100 LYLE Administration Budesonide 0.5 mg 09/03/24 14:13 09/04/24 06:53 Budesonide Rt 0.5 Mg/2 Ml Nebu INH 10/03/24 14:12 0.5 mg BIDRT LYLE Administration Clotrimazole 0 gm 09/03/24 21:00 09/03/24 21:39 Clotrimazole Vag Cr 1% 45 Gm Tube VAGINAL 09/10/24 20:59 1 appl HS LYLE Administration Heparin Sodium/Dextrose 25,000 unit in 250 mls @ 11.431 mls/hr 09/03/24 00:15 09/04/24 08:35 Heparin In D5w Ivpb IV 09/17/24 00:14 18 units/kg/hr .[id number] LYLE 11.431 mls/hr Titration Protocol 18 UNITS/KG/HR Ceftriaxone Sodium/Dextrose 1 gm in 50 mls @ 100 mls/hr 09/03/24 21:00 09/03/24 21:35 Rocephin/D5w 1gm Iv Premix IV 09/10/24 20:59 100 mls/hr QDAY@2100 LYLE Administration Levothyroxine Sodium 125 mcg/ 150 mcg 09/03/24 07:45 09/04/24 05:24 Levothyroxine Sodium 25 mcg PO 10/03/24 07:44 150 mcg ACBR LYLE Administration Methylprednisolone Sodium Succinate 40 mg 09/03/24 09:00 09/04/24 08:01 Methylprednisolone Sod Succ 40 Mg Vial IVP 09/10/24 08:59 40 mg QDAY LYLE Administration Ondansetron HCl 4 mg 09/03/24 00:00 09/03/24 22:58 Ondansetron Inj 2 Mg/Ml Inj 2 Ml IVP 10/03/24 00:00 4 mg Q6H PRN Administration NAUSEA OR VOMITING Protocol Pantoprazole Sodium 40 mg 09/03/24 09:00 09/04/24 08:03 Pantoprazole 40 Mg Tablet PO 10/03/24 08:59 40 mg QDAY LYLE Administration Potassium Chloride 40 meq 09/04/24 11:00 Potassium Chloride 20 Meq Tabcr PO 09/04/24 11:01 X1 ONE Sodium Chloride 9 ml 09/02/24 18:50 09/03/24 16:32 Sodium Chloride Rt Suzi 0.9% 3 Ml Nebu INH 10/02/24 18:49 3 ml PRN PRN Administration SOLN Plan Patient is a 59 year old female with a past medical history of hypertension, hypothyroidism, COPD, Multiple Sclerosis (MS) osteoarthritis, and 20 pack year history (current smoker) who was admitted on 09/02/2024 for acute hypoxic respiratory failure, COPD exacerbation, and PE. Cardiology consulted for PE and possible thrombectomy. #Provoked Pulmonary Embolism #R. Distal Pulmonary Artery Emboli #Small upper and lower lobe pulmonary artery branches Patient presented with provoked PE, at the right distal pulmonary artery and small upper/lower lobes, not permissible for thrombectomy. PE likely provoked int he setting of current smoker about 1/2 pack a day for the past 40 years. Less likely secondary to trauma or travel vs malignancy can not be ruled out. Diagnostics: CTA Chest (09/02/2024): Positive for pulmonary artery emboli in the distal right main pulmonary artery as well as upper and lower lobe right pulmonary artery branches. 29 mm cavitary lesion in the right upper lobe with surrounding pneumonia, highest on the differential diagnosis is infectious processes including active, tuberculosis, pulmonary infarction in the right upper lobe not excluded. Mild bilateral hydronephrosis Echo( 09/03/2024): Normal LV size and function. Estimated EF -55-60%. Normal diastolic function.RV normal size and function.No evidence of any right heart strain. Trace Mr and TR. No pericardial effusion. Venous Doppler LE BI: negative. D-Dimber 2940 BNP 53 PESI: 121 points, class IV high risk Plan -Continue Heparin drip, PT/PTT -No thrombectomy planned at this time -transition to Eliquis at primary teams discretion -Consider hypercoagulable work up as outpatient, active smoker -monitor for obstructive shock #Right Lower extremity Edema Trace edema noted, likely in the setting of venous insufficiency vs less likley secondary to CHF as BNP normal and cxr negative to vascualr congestion vs DVT, consider repeat US. plan -Continue to monitor and consider repeat venous US -Heparin drip on board #Acute Respiratory Failure, secondary to pneumonia & COPD exacerbation, improving #Sepsis rule out, secondary to Pneumonia #Cavitary Lesion #Pneumonia #Leukocytosis Patient noted to have a cavitary lesion likely in the setting of cocci given endemic region to the [place] vs less likely secondary to TB but can not be ruled out vs consider aspergillus or other less common such as actinomyces. Cxr (09/02/2024): Bibasilar pneumonia CTA Chest (09/03/2024): Positive for pulmonary artery emboli in the distal right main pulmonary artery as well as upper and lower lobe right pulmonary artery branches. 29 mm cavitary lesion in the right upper lobe with surrounding pneumonia,highest on the differential diagnosis is infectious processes including active tuberculosis, pulmonary infarction in the right upper lobe not excluded. UA positive Cocci Negative SOFA 4 points Plan -Azithromycin and Ceftriaxone (09/03/2024--) -Airborne precations -MRSA Screening -Sputum Culture -Blood Culture GPC AFB, QTF Pending -Consider repeat Cocci #COPD exacerbation #COPD likely secondary to COPD exacerbation given wheezing noted on physical exam and continued active smoker. Plan -Azithromycin and Ceftriaxone (09/03/2024--) -Duonebs Q6HRs, as well as PRN -Budesonide 0.5 BID -Methylprednisolone 40 mg IVP qday (use with caution if Cocci positive) #Hypothyroidism Home medication of Levothyroxine. TSH 6.47 (H) Free T4 1.46 Plan -Continue home medication of Levothyroxine 150 mcg #Current Smoker Extensive smoking history, 20 pack year, 40 years about 1/2 pack a day. Plan -consider nicotine patch -[employer] on smoking cessation #Hypertension Home medication of Spironolactone and Lisinopril Plan -Currently holding home medication given soft blood pressure -re-access Spironolactone prior to discharge #Incidental Mild bilateral hydronephrosis #Lactic Acid, resolved. Health Maintenance: Disp: Pt is currently admitted to floors for further management of acute respiratory failure, COPD exacerbation, w/ Cardiology Consulted for PE. FEN: Cardiac Diet DVT: Heparin Drip PE Code: Full Code - The patient's plan was discussed with attending Dr. Tiesha Edward MD PGY1 Internal Medicine Attending Provider Attestation/Addendum I have personally seen and examined the patient separately on the above date of service and discussed the plan of care with the resident. I reviewed the resident Dr. Teri Edward consultation progress note and agree with the resident findings and plan in the note above and have also edited the documentation to reflect my findings and plan. 59-year-old female with a past medical history of essential hypertension, multiple sclerosis, hypothyroidism, COPD with more than [id number] smoking history, current smoker, osteoarthritis presented to the emergency department for further evaluation of shortness of breath as well as wheezing for the past few days. In the emergency department patient had a chest CTA which showed and pulmonary embolism involving the distal right main artery as well as the upper and lower lobar pulmonary artery branches. Chest CT also showed a 29 mm cavitary lesion in the right upper lobe which is suspicious for active TB versus pulmonary infarction as well as pneumonia. Patient was tachycardic tachypneic and hypoxic on arrival. Lab data show elevated WBC count along with elevated D-dimer, CRP and elevated procalcitonin. Lactic acidosis along with hypokalemia hypomagnesemia were noted. Cardiology was consulted for further evaluation of the pulm embolism and for possible intervention with thrombectomy. Assessment and plan 1. Acute pulmonary embolism 2. Acute hypoxic respiratory failure secondary to COPD exacerbation, pneumonia and small PE 3. Sepsis secondary to possible pneumonia 4. Right upper lung cavitary lesion-ruling out TB 5. Pneumonia 6. COPD exacerbation 7. Current smoker with more than [id number] smoking history 8. Lactic acidosis 9. Hypertension 10. Hypothyroidism 11. Electrolyte abnormalities including hypomagnesemia as well as hypokalemia. Reviewed the CTA and patient does have pulmonary embolus in the distal right main pulmonary artery at the bifurcation of the right upper and middle pulmonary arteries with thrombus burden is small with significant flow noted to the right upper and right middle pulmonary arteries. Rest of the CTA only showed minimal thrombus burden in the right lower lobe artery branches and right upper lobe artery branches. BNP was only 53, troponin was negative, CTA did not show any significant right heart strain. Echocardiogram was performed and showed normal RV function without any evidence of RV strain. Normal LV size and function with an EF of 60 to 65%. Trace MR and TR. On examination patient also has significant wheezing and has the cavity 3 lesion in the right upper lobe and pneumonia which could all explain her hypoxia with tachycardia and tachypnea. Given the above findings patient has only a small thrombus burden and does not require any kind of advanced interventions including any mechanical thrombectomy and recommend to continue medical management with heparin drip for now and transition to Eliquis as per PE protocol if no further procedures are planned. On examination patient does have right lower extremity swelling but duplex of the bilateral legs are negative. Recommend to repeat the ultrasound for DVT and also any kind of venous insufficiency. Recommend aggressive treatment of the COPD exacerbation Patient counseled extensively to quit smoking completely and recommend to offer nicotine patch. Further management of the pneumonia as per the primary team. Patient does have a cartilage lesion noted in the right upper lobe and primary team to continue workup for the same including ruling out TB. Recommend to gradually replace potassium and magnesium and keep potassium greater than 4 and magnesium greater than 2.0. Management of rest of the medical conditions as per primary team and other consultants. Thank you for the consult and allowing me to participate in the care of the patient. Cardiology will sign off for now and please call us with any questions or concerns. Avelino Motley M.D. Interventional Cardiology
--- NOTE | 2024-09-04 09:46 | PC.SS ---
Kristy Luis is a 59-year-old female admitted to [facility] for AHRF 2/2 PE & PNA. SS made over the phone contact with pt dtr Michelle Membreno ?[phone] to complete initial assessment and to discuss discharge planning. Role and reason explained. Michelle reports pt currently resides with pts grandson, but they are in the process of moving the pt in with Michelle and her family due to the amount of assistance pt is now requiring. Pt currently requires max assist. Pt has a walker, bsc and wheel chair at home. [facility] last visit was 2 weeks ago. Pt pharmacy of choice is [facility]. DC options discussed and they wish to take pt back home. No further needs identified, SS will remain available for any additional needs or concerns. DC plan: Home Address: Confirmed on FS PCP: Sonia Reed [facility] DM: Logan Membreno
--- NOTE | 2024-09-04 10:55 | PD.RESPRO ---
Documentation for date of: 09/04/24 Subjective Subjective Interval history: Patient seen and examined at bedside. Complains of abdominal pain and indigestion, started on Maalox as needed. Patient also requesting ibuprofen for back pain, resumed as needed for moderate pain. Patient is on GI prophylaxis with p.o. Protonix. Otherwise patient continues to be on 2 L nasal cannula, will monitor SpO2. Blood pressure within normal limits, will continue to monitor Potassium was replaced today Per cardiology no intervention needed for pulmonary embolism, will continue with heparin drip. 1/2 bottles of blood cultures show GPC, will monitor, pending speciation, patient clinically improving. Exam Vital Signs Temp Pulse Resp BP Pulse Ox O2 Del Method O2 Flow Rate 97.3 F 100 26 H 100/82 97 Nasal Cannula 2 09/04/24 08:00 09/04/24 08:00 09/04/24 08:00 09/04/24 08:00 09/04/24 08:00 09/04/24 08:00 09/04/24 08:00 Narrative Exam General: A/O x3, no acute distress Eyes: PERRL, EOMI. Anicteric, vision grossly intact. Ears: No ear pain, no ear discharge, Hearing grossly intact. Nose: No nasal discharge. Mouth/Throat: Moist mucous membranes, no redness, no lesions. Neck: Neck supple, non-tender, no cervical lymphadenopathy. Lungs: Wheezing AMALIA and rhonchi, No accessory muscle use. Cardio: Normal S1/S2, regular rhythm, no murmurs, no JVD Abdomen: Soft, non-tender, no palpable masses, peristalsis present, no guarding or rebound. Extremities: Symmetrical, no significant deformities, 2+ peripheral edema on R LE and trace in L LE , non-tender, peripheral pulses presents. Skin: No rashes, no lesions, warm to touch. Neuro: No focal neurological deficits. motor and sensory intact. Psych: Cooperative, appropriate mood and effect. Objective Labs 09/04/24 05:06 09/04/24 05:06 Labs: Laboratory Results - last 24 hr 09/03/24 09/03/24 09/03/24 00:56 07:11 10:19 WBC RBC Hgb Hct MCV MCH MCHC RDW Std Deviation Plt Count Neut % (Auto) Lymph % (Auto) [place] % (Auto) Eos % (Auto) Baso % (Auto) Neut # (Auto) Lymph # (Auto) [place] # (Auto) Eos # (Auto) Baso # (Auto) Immature Gran # (Auto) Absolute Nucleated RBC Immature Gran % Nucleated RBC % PT INR APTT Sodium Potassium Chloride Carbon Dioxide Anion Gap BUN Creatinine Estim Creat Clear Calc eGFR BUN/Creatinine Ratio Glucose Estimated Ave Glu mg/dL Hemoglobin A1c Calculated Osmolality Calcium Corrected Calcium Magnesium Total Bilirubin AST ALT Alkaline Phosphatase Total Protein Albumin Globulin Albumin/Globulin Ratio Coccidioides IgM Ab Negative Mycobacterial Culture See Nov Rpt See Sep Rpt 09/03/24 09/03/24 09/04/24 15:29 23:15 05:06 WBC 15.9 H D RBC 3.09 L Hgb 10.0 L Hct 29.0 L MCV 94 MCH 32.4 MCHC 34.5 RDW Std Deviation 54.2 H Plt Count 163 Neut % (Auto) 89 H Lymph % (Auto) 3 L [place] % (Auto) 4 Eos % (Auto) 0 Baso % (Auto) 0 Neut # (Auto) 14.1 H Lymph # (Auto) 0.5 L [place] # (Auto) 0.7 Eos # (Auto) 0.0 Baso # (Auto) 0.0 Immature Gran # (Auto) 0.67 H Absolute Nucleated RBC 0.00 Immature Gran % 4 H Nucleated RBC % 0 PT 13.0 H D INR 1.2 APTT 61.4 H D 58.7 H 54.8 H Sodium 142 Potassium 2.7 L* D Chloride 111 H Carbon Dioxide 21.5 Anion Gap 10 BUN 13 Creatinine 0.7 Estim Creat Clear Calc 77.1 eGFR > 60 BUN/Creatinine Ratio 19 [address] Glu mg/dL 85 Hemoglobin A1c 4.6 L Calculated Osmolality 284 Calcium 7.7 L Corrected Calcium 8.7 Magnesium 2.1 Total Bilirubin 0.2 L AST < 8 ALT < 7 L Alkaline Phosphatase 73 Total Protein 4.7 L Albumin 2.7 L Globulin 2.0 L Albumin/Globulin Ratio 1.4 Coccidioides IgM Ab Mycobacterial Culture ABG Interpretation ABG results: 09/02/24 09/02/24 20:00 20:59 ABG pH 7.43 7.43 ABG pCO2 33 30 L ABG pO2 39 L* 61 L D ABG HCO3 22 19 L ABG O2 Saturation 72 L 92 ABG Base Excess -2 -4 L Quality Measures Quality Measures sepsis Current suspected stage: sepsis Possible source: pulmonary Blood cultures ordered: yes Antibiotic ordered: Yes Assessment & Plan Assessment Current Active Medications: Generic Name Dose Route Start Last Admin Trade Name Freq PRN Reason Stop Dose Admin Acetaminophen 650 mg 09/03/24 09:14 09/03/24 22:46 Acetaminophen 325 Mg Tablet PO 10/03/24 00:00 650 mg Q6H PRN Administration pain(1-3) and Fever >100.4 Hydrocodone Bitart/Acetaminophen 1 tab 09/03/24 00:00 Hydrocodone/Apap 5/325 Tablet PO 09/08/24 00:00 Q4HR PRN PAIN SCALE 4-10(Mod-Sev Albuterol/Ipratropium 3 ml 09/03/24 01:00 09/04/24 06:54 Albuterol/Ipratropium (Duoneb) Rt Suzi 3 Ml Nebu INH 10/03/24 00:59 3 ml Q6HRRT LYLE Administration Albuterol/Ipratropium 3 ml 09/03/24 07:35 Albuterol/Ipratropium (Duoneb) Rt Suzi 3 Ml Nebu INH 10/03/24 07:34 Q2HR PRN SHORTNESS OF BREATH OR WHEEZE Azithromycin 500 mg 09/03/24 00:10 09/03/24 21:34 Azithromycin 250 Mg Tablet PO 09/10/24 00:09 500 mg DAILY@2100 LYLE Administration Budesonide 0.5 mg 09/03/24 14:13 09/04/24 06:53 Budesonide Rt 0.5 Mg/2 Ml Nebu INH 10/03/24 14:12 0.5 mg BIDRT LYLE Administration Clotrimazole 0 gm 09/03/24 21:00 09/03/24 21:39 Clotrimazole Vag Cr 1% 45 Gm Tube VAGINAL 09/10/24 20:59 1 appl HS LYLE Administration Heparin Sodium/Dextrose 25,000 unit in 250 mls @ 11.431 mls/hr 09/03/24 00:15 09/04/24 08:35 Heparin In D5w Ivpb IV 09/17/24 00:14 18 units/kg/hr .[id number] LYLE 11.431 mls/hr Titration Protocol 18 UNITS/KG/HR Ceftriaxone Sodium/Dextrose 1 gm in 50 mls @ 100 mls/hr 09/03/24 21:00 09/03/24 21:35 Rocephin/D5w 1gm Iv Premix IV 09/10/24 20:59 100 mls/hr QDAY@2100 LYLE Administration Levothyroxine Sodium 125 mcg/ 150 mcg 09/03/24 07:45 09/04/24 05:24 Levothyroxine Sodium 25 mcg PO 10/03/24 07:44 150 mcg ACBR LYLE Administration Methylprednisolone Sodium Succinate 40 mg 09/03/24 09:00 09/04/24 08:01 Methylprednisolone Sod Succ 40 Mg Vial IVP 09/10/24 08:59 40 mg QDAY LYLE Administration Ondansetron HCl 4 mg 09/03/24 00:00 09/03/24 22:58 Ondansetron Inj 2 Mg/Ml Inj 2 Ml IVP 10/03/24 00:00 4 mg Q6H PRN Administration NAUSEA OR VOMITING Protocol Pantoprazole Sodium 40 mg 09/03/24 09:00 09/04/24 08:03 Pantoprazole 40 Mg Tablet PO 10/03/24 08:59 40 mg QDAY LYLE Administration Potassium Chloride 40 meq 09/04/24 11:00 Potassium Chloride 20 Meq Tabcr PO 09/04/24 11:01 X1 ONE Sodium Chloride 9 ml 09/02/24 18:50 09/03/24 16:32 Sodium Chloride Rt Suzi 0.9% 3 Ml Nebu INH 10/02/24 18:49 3 ml PRN PRN Administration SOLN Plan Assessment and Plan: 59-year-old female with past medical history of hypothyroidism, hypertension, COPD/asthma, and active smoker who was admitted to the hospital on 09/03/2024 for acute hypoxic respiratory failure likely secondary to pulmonary embolism and community-acquired pneumonia. #Acute hypoxic respiratory failure #Intermediate low risk pulmonary embolism #Community-acquired pneumonia #29 mm cavitary lesion #COPD exacerbation #TB rule out Patient states that she started having increased shortness of breath today which was out of the ordinary compared to her normal shortness of breath given her COPD/asthma. Patient denied having any productive cough with any blood change sputum. Patient denies having any history of blood clots or traveling outside the [place]. Patient denied any night sweats or recent weight loss. Chest CTA showed pulmonary embolism of the distal main right pulmonary artery as well as a upper and lower lobe pulmonary artery branches. Also showed a thin-walled 29 mm cavitary lesion in the right upper lobe which was concerning for possible tuberculosis versus pulmonary infarction. Patient's chest x-ray that show bibasilar pneumonia D-dimer elevated 2940 Patient saturating well on nasal cannula, but was noted to have wheezing bilaterally. PESI score 121, class IV high risk Blood culture 09/02/2024 1/2 bottle preliminary shows GPC resembling staph, second culture has no growth Echocardiogram 09/03: Normal LV size and function. Estimated EF -55-60%. Normal diastolic function. RV normal size and function.No evidence of any right heart strain. Trace Mr and TR. No pericardial effusion. Plan: -Heparin drip per protocol -Azithromycin and ceftriaxone 09/03/2024? -DuoNebs scheduled every 6 hours/DuoNebs as needed -IV Solu-Medrol 40 mg daily -Cocci IgM negative, follow IgG, AFB x 2, not enough sample, ordered AFB x 3 -Follow blood culture speciation, will monitor for now -QuantiFERON ordered -Isolation precautions Airborne precautions -Will continue to monitor -Consulted cardiology, appreciate recommendations #Lactic acidosis #Electrolyte imbalance #Hypokalemia #Hypomagnesemia Patient came with potassium of 2.5 and magnesium of 1.5 In the ED patient received 2 g magnesium and 50 mEq of potassium Patient had a lactic acid of 2.2 and uptrend to 2.7 Plan: -Follow lactate in a.m. -Will repeat potassium and magnesium levels -Will replete as necessary #Right lower extremity edema Patient has 2+ right lower extremity pitting edema compared to left lower extremity which only shows some trace edema. No echo on file Venous Doppler was negative for DVT Peripheral pulses were present bilaterally Patient on diuretics at home, was recently started on spironolactone, will hold for now No heart failure noted on echocardiogram Plan: - Consulted cardiology, appreciate recommendations #Vulvovaginal candidiasis Noted on exam, was given fluconazole 150 x 1. -Nystatin cream at bedtime for 7 days #Hypothyroidism Patient's TSH was 6.47 and free T4 was 1.6 on admission -Resume home dose levothyroxine. #Hx of hypertension Patient's blood pressure has been stable during admission Will hold off on antihypertensive medications for now. Disposition: Patient admitted to telemetry for AHRF 2/2 PE and PNA. Diet: Cardiac GI prophylaxis: protonix DVT prophylaxis: Heparin drip Code: Full Case discussed with Attending Dr. Kerns. Karina Parr PGY1 Disclaimer: This note was dictated by speech recognition. Minor errors in frozen yogurt maker may be present due to voice recognition software. Attending Provider Attestation/Addendum Face to face evaluation was performed by me. I have personally seen and examined the patient. I discussed the assessment and plan with the entire medicine team. I reviewed available medical records, imaging studies, laboratory results. I agree with the above subjective data, objective findings, assessment and plan except as corrected by me or noted below Acute respiratory failure Acute pulmonary emboli Right lung cavitary lesion Essential hypertension Hypothyroidism - TB rule out- AFB x 3 and TB gold pending - Abxs - Cocci Ab - IV heparin can switch to oral NOAC soon as no procedures planned for More than > 30 minutes spent on the encounter
[2024-09-04 12:49] LABS: Cocci Serology, IgG Negative (Negative)
[2024-09-04] MEDS: SODIUM CHLORIDE RT SOL 0.9% 3 ML NEBU 9 ML INH (13:55)
[2024-09-04 15:22] LABS: Cult AFB Sendout- Sputum* See Sep Rpt
[2024-09-04 16:34] LABS: Anion Gap 6 (7-16); BUN/Creatinine Ratio 19 Ratio (12-20); Blood Urea Nitrogen 15 mg/dL (9-23); Calcium 8.1 mg/dL (8.3-10.6); Calcium (Corrected) 8.9 mg/dL (8.5-10.1); Carbon Dioxide 22.1 mMol/L (20.0-31.0); Chloride 112 mMol/L (98-107); Creatinine (Component) 0.8 mg/dL (0.6-1.3); Estimated Creatinine Clearance 67.4 mL/min (>60); Glucose 129 mg/dL (74-106); Osmolality,Calculated 282 (275-295); Phosphorous 1.3 mg/dL (2.4-5.1); Potassium 3.7 mMol/L (3.4-5.1); Sodium 140 mMol/L (136-145); eGFR > 60 See Note
[2024-09-04] MEDS: CLOTRIMAZOLE VAG CR 1% 45 GM TUBE VAGINAL (20:35)
[2024-09-04] MEDS: AZITHROMYCIN 250 MG TABLET 500 MG PO (20:35)
[2024-09-04] MEDS: cefTRIAXone/D5w 1gm IV premix 1 GM/50 ML BAG IV (20:35)
[2024-09-04] MEDS: Heparin/D5w 25K 250 ML Ivpb 25,000 UNIT/250 ML BAG 11.431 UNIT IV (23:46)
[2024-09-05] VITALS (12 sets, daily range): BP systolic 105–129; BP diastolic 76–91; PULSE 70–106; RESP 18–95; TEMP 36.3–37; O2SAT 91–100; BMI 29.7
[2024-09-05] MEDS: IBUPROFEN TAB 400 MG TABLET 800 MG PO
--- NOTE | 2024-09-05 00:05 | PC.NURSE ---
95% O2 sat on room air- Discontinued O2 inh.
--- NOTE | 2024-09-05 00:16 | PC.NURSE ---
complain of abdominal pain. Last bm=09/01/24- Gave and finished 1/2 cup of prune juice with small amount of 7 up.
[2024-09-05] MEDS: ALBUTEROL/IPRATROPIUM (Duoneb) RT SOL 3 ML NEBU INH ×4 (01:03→19:04)
--- NOTE | 2024-09-05 01:19 | PC.RT ---
AFB #3 SENT TO LAB AT 0120. RN AWARE
--- NOTE | 2024-09-05 01:22 | PC.RT ---
[place]: AFB #2 SENT TO LAB AT 0120. #3 WILL BE COLLECTED AT 0700.
[2024-09-05 01:35] LABS: Cult AFB Sendout- Sputum* See Sep Rpt
[2024-09-05 05:27] LABS: Basophils % (Auto) 0 % (0-2.5); Eosinophils % (Auto) 0 % (0-10); Hematocrit 29.5 % (36.0-46.0); Hemoglobin 10.6 g/dL (12.0-16.0); Immature Granulocytes % (Auto) 2 % (0-0); Lymphocytes # (Auto) 0.8 Thou/mm3 (1.0-4.8); Lymphocytes % (Auto) 6 % (10-50); Mean Corpuscular HGB Conc 35.9 g/dl (31.0-37.0); Mean Corpuscular Hemoglobin 33.1 pg (25.0-35.0); Mean Corpuscular Volume 92 fL (80-100); Monocytes # (Auto) 0.5 Thou/mm3 (0.0-0.8); Monocytes % (Auto) 4 % (0-12); Neutrophils # (Auto) 11.6 Thou/mm3 (1.8-7.7); Neutrophils % (Auto) 88 % (37-80); Nucleated Red Blood Cell % 0 /100 WBC (0); Platelet Count 140 Thou/mm3 (140-440); RDW Standard Deviation 53.2 fL (36.4-46.3); White Blood Count 13.1 Thou/mm3 (3.6-11.0)
[2024-09-05] MEDS: LEVOTHYROXINE SODIUM 125 MCG, LEVOTHYROXINE SODIUM 25 MCG 150 MCG PO (05:27)
[2024-09-05 05:35] LABS: INR 1.1 (0.9-1.3); Partial Thromboplastin Time 30.5 Seconds (22.0-36.0); Prothrombin Time 11.7 Seconds (9.0-12.2)
[2024-09-05 06:12] LABS: Alanine Aminotransferase 8 U/L (10-49); Albumin/Globulin Ratio 1.4 (1.2-2.2); Alkaline Phosphatase 60 U/L (46-116); Anion Gap 6 (7-16); Aspartate Amino Transferase < 8 U/L (0-34); BUN/Creatinine Ratio 20 Ratio (12-20); Bilirubin,Total 0.2 mg/dL (0.3-1.2); Blood Urea Nitrogen 14 mg/dL (9-23); Calcium 8.2 mg/dL (8.3-10.6); Carbon Dioxide 21.4 mMol/L (20.0-31.0); Chloride 111 mMol/L (98-107); Creatinine (Component) 0.7 mg/dL (0.6-1.3); Estimated Creatinine Clearance 77.1 mL/min (>60); Globulin 2.2 gm/dL (2.3-3.5); Glucose 110 mg/dL (74-106); Magnesium 1.9 mg/dL (1.6-2.6); Osmolality,Calculated 277 (275-295); Potassium 3.7 mMol/L (3.4-5.1); Sodium 138 mMol/L (136-145); Total Protein 5.2 gm/dL (5.7-8.2); eGFR > 60 See Note
[2024-09-05] MEDS: BUDESONIDE RT 0.5 MG/2 ML NEBU INH ×2 (06:51→19:04)
[2024-09-05] MEDS: HEPARIN SOD INJ 5000 UNIT/ML VIAL IV (07:51)
[2024-09-05] MEDS: PANTOPRAZOLE 40 MG TABLET PO (08:08)
[2024-09-05 08:20] LABS: Cult AFB Sendout- Sputum* See Sep Rpt
[2024-09-05] MEDS: POTASSIUM CHLORIDE 20 mEq TABCR 40 MEQ PO (09:00)
[2024-09-05] MEDS: SOD PHOS ADDITIVE 22.5 MMOL in SODIUM CHLORIDE 0.9% 500 ML 500 ML 82.778 MMOL IV (09:00)
--- NOTE | 2024-09-05 09:18 | PC.SS ---
Follow up note: On heprin drip. On IV antibiotic. TB rule out. Pt will return home upon dc.
--- NOTE | 2024-09-05 11:02 | EKG_ITS ---
[facility] Test Date: 2024-09-05 Pat Name: TANYA LOJA [facility] Tissue Coordinator: MARBIN : 1965 Requested By: Karina Parr Order Number: [id number] Reading MD: Karina Parr Measurements Intervals [employer] Rate: 105 P: 39 AR: 178 QRS: 36 QRSD: 82 T: 47 QT: 306 QTc: 405 Interpretive Statements SINUS TACHYCARDIA LOW QRS VOLTAGE IN PRECORDIAL LEADS POSSIBLE ANTERIOR MYOCARDIAL INFARCTION , PROBABLY OLD ABNORMAL RHYTHM ECG Compared to ECG 07/23/2024 13:05:52 Sinus rhythm no longer present Myocardial infarct finding still present /store/S0/[id number].pdf
[2024-09-05] MEDS: APIXABAN 2.5 MG TABLET 10 MG PO ×2 (11:19→20:57)
[2024-09-05] MEDS: CEFEPIME INJ 2 GM in SODIUM CHLORIDE 0.9% (Popper) 50 ML IV ×2 (11:20→21:05)
--- NOTE | 2024-09-05 11:29 | ESPR_ITS ---
<Statement entered by Donal Orellana MD - 09/11/24 08:55> I reviewed above note and agree with findings and plans. I have also personally examined the patient with medicine team and went over assessment and plan with medical team including industrial design intern and resident physician. Documentation for date of: 09/05/24 Subjective Subjective Interval history: Patient seen examined at bedside. Patient is tachycardic-sinus tachycardia, transitioned to Eliquis 10 mg twice daily, heparin drip discontinued. Sputum culture shows Pseudomonas, resistant to ceftriaxone, antibiotic therapy changed to cefepime, urine culture unremarkable. 1/2 bottles of blood cultures show GPC, will monitor, pending speciation, patient clinically improving, is off supplemental oxygen. Patient is pending AFB, will follow -sputum culture. Phosphorus 1.3, will replete. Patient will be given potassium 40 mEq, will follow labs in AM. Discontinued ibuprofen, will use [place] for moderate to severe pain. Exam Vital Signs Temp Pulse Resp BP Pulse Ox O2 Del Method O2 Flow Rate 98.1 F 105 H 24 H 114/84 91 L Room Air 2 09/05/24 08:00 09/05/24 08:00 09/05/24 08:00 09/05/24 08:00 09/05/24 08:00 09/05/24 08:00 09/05/24 00:00 Narrative Exam General: A/O x3, no acute distress Eyes: PERRL, EOMI. Anicteric, vision grossly intact. Ears: No ear pain, no ear discharge, Hearing grossly intact. Nose: No nasal discharge. Mouth/Throat: Moist mucous membranes, no redness, no lesions. Neck: Neck supple, non-tender, no cervical lymphadenopathy. Lungs: Wheezing AMALIA and rhonchi, No accessory muscle use. Cardio: Normal S1/S2, regular rhythm, no murmurs, no JVD Abdomen: Soft, non-tender, no palpable masses, peristalsis present, no guarding or rebound. Extremities: Symmetrical, no significant deformities, 1+ peripheral edema on R LE and trace in L LE , non-tender, peripheral pulses presents. Skin: No rashes, no lesions, warm to touch. Neuro: No focal neurological deficits. motor and sensory intact. Psych: Cooperative, appropriate mood and effect. Objective Labs 09/05/24 05:00 09/05/24 05:00 Labs: Laboratory Results - last 24 hr 09/03/24 09/04/24 09/05/24 07:11 15:30 05:00 WBC 13.1 H RBC 3.20 L Hgb 10.6 L Hct 29.5 L MCV 92 MCH 33.1 MCHC 35.9 RDW Std Deviation 53.2 H Plt Count 140 Neut % (Auto) 88 H Lymph % (Auto) 6 L [place] % (Auto) 4 Eos % (Auto) 0 Baso % (Auto) 0 Neut # (Auto) 11.6 H Lymph # (Auto) 0.8 L [place] # (Auto) 0.5 Eos # (Auto) 0.0 Baso # (Auto) 0.0 Immature Gran # (Auto) 0.20 H Absolute Nucleated RBC 0.00 Immature Gran % 2 H Nucleated RBC % 0 PT 11.7 INR 1.1 APTT 30.5 D Sodium 140 138 Potassium 3.7 D 3.7 Chloride 112 H 111 H Carbon Dioxide 22.1 21.4 Anion Gap 6 L 6 L BUN 15 14 Creatinine 0.8 0.7 Estim Creat Clear Calc 67.4 77.1 eGFR > 60 > 60 BUN/Creatinine Ratio 19 20 Glucose 129 H 110 H Calculated Osmolality 282 277 Lactic Acid 1.0 Calcium 8.1 L 8.2 L Corrected Calcium 8.9 9.0 Phosphorus 1.3 L Magnesium 1.9 Total Bilirubin 0.2 L AST < 8 ALT 8 L Alkaline Phosphatase 60 Total Protein 5.2 L Albumin 3.0 L 3.0 L Globulin 2.2 L Albumin/Globulin Ratio 1.4 Coccidioides IgG Ab Negative ABG Interpretation ABG results: 09/02/24 09/02/24 20:00 20:59 ABG pH 7.43 7.43 ABG pCO2 33 30 L ABG pO2 39 L* 61 L D ABG HCO3 22 19 L ABG O2 Saturation 72 L 92 ABG Base Excess -2 -4 L Quality Measures Quality Measures sepsis Current suspected stage: ruled out Possible source: pulmonary Blood cultures ordered: yes Antibiotic ordered: Yes Assessment & Plan Assessment Current Active Medications: Generic Name Dose Route Start Last Admin Trade Name Freq PRN Reason Stop Dose Admin Acetaminophen 650 mg 09/03/24 09:14 09/03/24 22:46 Acetaminophen 325 Mg Tablet PO 10/03/24 00:00 650 mg Q6H PRN Administration pain(1-3) and Fever >100.4 Hydrocodone Bitart/Acetaminophen 1 tab 09/05/24 11:01 Hydrocodone/Apap 5/325 Tablet PO 09/08/24 00:00 Q4HR PRN PAIN SCALE 4-10(Mod-Sev Al Hydrox/Mg Hydrox/Simethicone 30 ml 09/04/24 14:57 Mg Hyd/Al Hyd/Regine (Maalox Reg) Susp 30 Ml Udc PO 10/04/24 14:56 QID PRN UPSET STOMACH/INDIGESTION Albuterol/Ipratropium 3 ml 09/03/24 01:00 09/05/24 06:51 Albuterol/Ipratropium (Duoneb) Rt Suzi 3 Ml Nebu INH 10/03/24 00:59 3 ml Q6HRRT LYLE Administration Albuterol/Ipratropium 3 ml 09/03/24 07:35 Albuterol/Ipratropium (Duoneb) Rt Suzi 3 Ml Nebu INH 10/03/24 07:34 Q2HR PRN SHORTNESS OF BREATH OR WHEEZE Apixaban 10 mg 09/05/24 11:00 09/05/24 11:19 Apixaban 2.5 Mg Tablet PO 09/11/24 21:01 10 mg BID LYLE Administration Azithromycin 500 mg 09/03/24 00:10 09/04/24 20:35 Azithromycin 250 Mg Tablet PO 09/10/24 00:09 500 mg DAILY@2100 LYLE Administration Budesonide 0.5 mg 09/03/24 14:13 09/05/24 06:51 Budesonide Rt 0.5 Mg/2 Ml Nebu INH 10/03/24 14:12 0.5 mg BIDRT LYLE Administration Clotrimazole 0 gm 09/03/24 21:00 09/04/24 20:35 Clotrimazole Vag Cr 1% 45 Gm Tube VAGINAL 09/10/24 20:59 1 appl HS LYLE Administration Sodium Phosphate 22.5 mmol/ 507.5 mls @ 82.778 mls/hr 09/05/24 08:40 09/05/24 09:00 Sodium Chloride IV 09/05/24 14:47 82.778 mls/hr X1 ONE Administration Cefepime HCl 2 gm/ Sodium 50 mls @ 100 mls/hr 09/05/24 10:58 09/05/24 11:20 Chloride IV 09/12/24 10:57 100 mls/hr Q8HR LYLE Administration Levothyroxine Sodium 125 mcg/ 150 mcg 09/03/24 07:45 09/05/24 05:27 Levothyroxine Sodium 25 mcg PO 10/03/24 07:44 150 mcg ACBR LYLE Administration Ondansetron HCl 4 mg 09/03/24 00:00 09/03/24 22:58 Ondansetron Inj 2 Mg/Ml Inj 2 Ml IVP 10/03/24 00:00 4 mg Q6H PRN Administration NAUSEA OR VOMITING Protocol Pantoprazole Sodium 40 mg 09/03/24 09:00 09/05/24 08:08 Pantoprazole 40 Mg Tablet PO 10/03/24 08:59 40 mg QDAY LYLE Administration Sodium Chloride 9 ml 09/02/24 18:50 09/04/24 13:55 Sodium Chloride Rt Suzi 0.9% 3 Ml Nebu INH 10/02/24 18:49 3 ml PRN PRN Administration SOLN Plan Assessment and Plan: 59-year-old female with past medical history of hypothyroidism, hypertension, COPD/asthma, and active smoker who was admitted to the hospital on 09/03/2024 for acute hypoxic respiratory failure likely secondary to pulmonary embolism and community-acquired pneumonia. #Acute hypoxic respiratory failure, resolving #Intermediate low risk pulmonary embolism #Community-acquired pneumonia, Pseudomonas pneumonia #29 mm cavitary lesion #COPD exacerbation #TB rule out Patient states that she started having increased shortness of breath today which was out of the ordinary compared to her normal shortness of breath given her COPD/asthma. Patient denied having any productive cough with any blood change sputum. Patient denies having any history of blood clots or traveling outside the [place]. Patient denied any night sweats or recent weight loss. Chest CTA showed pulmonary embolism of the distal main right pulmonary artery as well as a upper and lower lobe pulmonary artery branches. Also showed a thin- walled 29 mm cavitary lesion in the right upper lobe which was concerning for possible tuberculosis versus pulmonary infarction. Patient's chest x-ray that show bibasilar pneumonia D-dimer elevated 2940 Patient saturating well on nasal cannula, but was noted to have wheezing bilaterally. PESI score 121, class IV high risk Blood culture 09/02/202403/22 bottle preliminary shows GPC resembling staph, second culture has no growth Echocardiogram 09/03: Normal LV size and function. Estimated EF -55-60%. Normal diastolic function. RV normal size and function.No evidence of any right heart strain. Trace Mr and TR. No pericardial effusion. Sputum culture shows Pseudomonas resistant to ceftriaxone. Patient received ceftriaxone 09/03/24-09/05/2024 Plan: -Heparin drip transition to Eliquis 10 mg twice daily for 7 days -Continue azithromycin 09/03/24- and cefepime 09/05/24- -DuoNebs scheduled every 6 hours/DuoNebs as needed -Discontinued Solu-Medrol -Cocci IgM negative, follow IgG, AFB x 2, not enough sample, ordered AFB x 3 -Follow blood culture speciation, will monitor for now -QuantiFERON pending -Isolation precautions Airborne precautions -Will continue to monitor -Consulted cardiology, appreciate recommendations #Lactic acidosis, resolved #Electrolyte imbalance #Hypokalemia #Hypomagnesemia Patient came with potassium of 2.5 and magnesium of 1.5 In the ED patient received 2 g magnesium and 50 mEq of potassium Patient had a lactic acid of 2.2 and uptrend to 2.7 Plan: -Will repeat potassium and magnesium levels -Will replete as necessary #Right lower extremity edema Patient has 2+ right lower extremity pitting edema compared to left lower extremity which only shows some trace edema. No echo on file Venous Doppler was negative for DVT Peripheral pulses were present bilaterally Patient on diuretics at home, was recently started on spironolactone, will hold for now No heart failure noted on echocardiogram Plan: - Consider compression stockings, elevating leg - Consulted cardiology, appreciate recommendations #Vulvovaginal candidiasis Noted on exam, was given fluconazole 150 x 1. -Nystatin cream at bedtime for 7 days #Hypothyroidism Patient's TSH was 6.47 and free T4 was 1.6 on admission -Resume home dose levothyroxine. #Hx of hypertension Patient's blood pressure has been stable during admission Will hold off on antihypertensive medications for now. Disposition: Patient admitted to telemetry for AHRF 2/2 PE and PNA. Diet: Cardiac GI prophylaxis: protonix DVT prophylaxis: Eliquis Code: Full Code Case discussed with Attending Dr. Orellana. Karina Parr PGY1 Disclaimer: This note was dictated by speech recognition. Minor errors in insurance follow up rep may be present due to voice recognition software.
--- NOTE | 2024-09-05 13:20 | PC.RT ---
FInal sputum sample collected and sent to lab @ 0805.
--- NOTE | 2024-09-05 13:43 | PD.RESPRO ---
Documentation for date of: 09/05/24 Subjective Subjective Interval history: CC: SOB for several days and wheezing Patient is a 59 year old female with a past medical history of hypertension, hypothyroidism, COPD, Multiple Sclerosis (MS) osteoarthritis, and 20 pack year history (current smoker). Patient presented to the emergency room via EMS with chief complain of SOB and wheezing per chart review had been ongoing for several days. On admission, patient denied pyrexia or chills at home, and denied recent weight loss. Denied increase phlegm and denied increased cough. Admitted onto floors for acute hypoxic respiratory failure secondary to COPD exacerbation and PE. 09/03/2024: Cardiology consulted for PE, as noted on CTA chest, for possible thrombectomy. 09/04/2024: Patient examined at bedside. Patient stated taking deep breaths is difficult but denied chest pain or chest pressure. Patient denied dyspnea. Patient SpO2 98% on 2 Liters NC. Patient denied diaphoresis, nausea or emesis. No thrombectomy planned. 09/05/2024: No overnight. Patient examinded at bedside. Patient denied shortness of breath, deneid chest pain or pressure, and felt improved airway entry. Paitent off nasal cannual with SpO 98%. Heparin drip running, transition to DOACs per PE protacol at primary team's discretion. Cardiology signing off. Exam Vital Signs Temp Pulse Resp BP Pulse Ox O2 Del Method O2 Flow Rate 98.4 F 106 H 18 117/78 91 L Room Air 2 09/05/24 12:00 09/05/24 12:09/05/24 12:09/05/24 12:09/05/24 12:09/05/24 12:09/05/24 00:00 Narrative Exam General Appearance: Alert & Oriented X3, well-nourished female who is lying in bed in no acute distress HEENT: Skull symmetrical and atraumatic. Conjunctivae pin and moist. Pupils equal, round, reactive to light and accommodation (PERRL). Cardio: Normal Rate and Rhythm with S1 and S2 heart sounds. No murmurs or extra heart sounds auscultated. No bruits on carotid auscultation.Trace peripheral edema Lungs: Symmetric with good expansion. Reduce airway entry with reduced wheezing noted bilaterally. Abdomen: Non-tender, Non-distended, Normal Reactive Bowel Sounds Neuro: Alert, cooperative, oriented to person, place, and time. Speech clear. CN grossly intact. Upper motor strength 5/5 and Lower motor strength 5/5. Sensation Objective Labs 09/05/24 05:00 09/05/24 05:00 Labs: Laboratory Results - last 24 hr 09/04/24 09/05/24 15:30 05:00 WBC 13.1 H RBC 3.20 L Hgb 10.6 L Hct 29.5 L MCV 92 MCH 33.1 MCHC 35.9 RDW Std Deviation 53.2 H Plt Count 140 Neut % (Auto) 88 H Lymph % (Auto) 6 L [place] % (Auto) 4 Eos % (Auto) 0 Baso % (Auto) 0 Neut # (Auto) 11.6 H Lymph # (Auto) 0.8 L [place] # (Auto) 0.5 Eos # (Auto) 0.0 Baso # (Auto) 0.0 Immature Gran # (Auto) 0.20 H Absolute Nucleated RBC 0.00 Immature Gran % 2 H Nucleated RBC % 0 PT 11.7 INR 1.1 APTT 30.5 D Sodium 140 138 Potassium 3.7 D 3.7 Chloride 112 H 111 H Carbon Dioxide 22.1 21.4 Anion Gap 6 L 6 L BUN 15 14 Creatinine 0.8 0.7 Estim Creat Clear Calc 67.4 77.1 eGFR > 60 > 60 BUN/Creatinine Ratio 19 20 Glucose 129 H 110 H Calculated Osmolality 282 277 Lactic Acid 1.0 Calcium 8.1 L 8.2 L Corrected Calcium 8.9 9.0 Phosphorus 1.3 L Magnesium 1.9 Total Bilirubin 0.2 L AST < 8 ALT 8 L Alkaline Phosphatase 60 Total Protein 5.2 L Albumin 3.0 L 3.0 L Globulin 2.2 L Albumin/Globulin Ratio 1.4 ABG Interpretation ABG results: 09/02/24 09/02/24 20:00 20:59 ABG pH 7.43 7.43 ABG pCO2 33 30 L ABG pO2 39 L* 61 L D ABG HCO3 22 19 L ABG O2 Saturation 72 L 92 ABG Base Excess -2 -4 L Quality Measures Quality Measures sepsis Current suspected stage: sepsis Possible source: pulmonary Blood cultures ordered: yes Antibiotic ordered: Yes Assessment & Plan Assessment Current Active Medications: Generic Name Dose Route Start Last Admin Trade Name Freq PRN Reason Stop Dose Admin Acetaminophen 650 mg 09/03/24 09:14 09/03/24 22:46 Acetaminophen 325 Mg Tablet PO 10/03/24 00:00 650 mg Q6H PRN Administration pain(1-3) and Fever >100.4 Hydrocodone Bitart/Acetaminophen 1 tab 09/05/24 11:01 Hydrocodone/Apap 5/325 Tablet PO 09/08/24 00:00 Q4HR PRN PAIN SCALE 4-10(Mod-Sev Al Hydrox/Mg Hydrox/Simethicone 30 ml 09/04/24 14:57 Mg Hyd/Al Hyd/Regine (Maalox Reg) Susp 30 Ml Udc PO 10/04/24 14:56 QID PRN UPSET STOMACH/INDIGESTION Albuterol/Ipratropium 3 ml 09/03/24 01:00 09/05/24 06:51 Albuterol/Ipratropium (Duoneb) Rt Suzi 3 Ml Nebu INH 10/03/24 00:59 3 ml Q6HRRT LYLE Administration Albuterol/Ipratropium 3 ml 09/03/24 07:35 Albuterol/Ipratropium (Duoneb) Rt Suzi 3 Ml Nebu INH 10/03/24 07:34 Q2HR PRN SHORTNESS OF BREATH OR WHEEZE Apixaban 10 mg 09/05/24 11:00 09/05/24 11:19 Apixaban 2.5 Mg Tablet PO 09/11/24 21:01 10 mg BID LYLE Administration Azithromycin 500 mg 09/03/24 00:10 09/04/24 20:35 Azithromycin 250 Mg Tablet PO 09/10/24 00:09 500 mg DAILY@2100 LYLE Administration Budesonide 0.5 mg 09/03/24 14:13 09/05/24 06:51 Budesonide Rt 0.5 Mg/2 Ml Nebu INH 10/03/24 14:12 0.5 mg BIDRT LYLE Administration Clotrimazole 0 gm 09/03/24 21:00 09/04/24 20:35 Clotrimazole Vag Cr 1% 45 Gm Tube VAGINAL 09/10/24 20:59 1 appl HS LYLE Administration Sodium Phosphate 22.5 mmol/ 507.5 mls @ 82.778 mls/hr 09/05/24 08:40 09/05/24 09:00 Sodium Chloride IV 09/05/24 14:47 82.778 mls/hr X1 ONE Administration Cefepime HCl 2 gm/ Sodium 50 mls @ 100 mls/hr 09/05/24 10:58 09/05/24 11:20 Chloride IV 09/12/24 10:57 100 mls/hr Q8HR LYLE Administration Levothyroxine Sodium 125 mcg/ 150 mcg 09/03/24 07:45 09/05/24 05:27 Levothyroxine Sodium 25 mcg PO 10/03/24 07:44 150 mcg ACBR LYLE Administration Ondansetron HCl 4 mg 09/03/24 00:00 09/03/24 22:58 Ondansetron Inj 2 Mg/Ml Inj 2 Ml IVP 10/03/24 00:00 4 mg Q6H PRN Administration NAUSEA OR VOMITING Protocol Pantoprazole Sodium 40 mg 09/03/24 09:00 09/05/24 08:08 Pantoprazole 40 Mg Tablet PO 10/03/24 08:59 40 mg QDAY LYLE Administration Sodium Chloride 9 ml 09/02/24 18:50 09/04/24 13:55 Sodium Chloride Rt Suzi 0.9% 3 Ml Nebu INH 10/02/24 18:49 3 ml PRN PRN Administration SOLN Plan Patient is a 59 year old female with a past medical history of hypertension, hypothyroidism, COPD, Multiple Sclerosis (MS) osteoarthritis, and 20 pack year history (current smoker) who was admitted on 09/02/2024 for acute hypoxic respiratory failure, COPD exacerbation, and PE. Cardiology consulted for PE and possible thrombectomy. #Provoked Pulmonary Embolism #R. Distal Pulmonary Artery Emboli #Small upper and lower lobe pulmonary artery branches Patient presented with provoked PE, at the right distal pulmonary artery and small upper/lower lobes, not permissible for thrombectomy. PE likely provoked int he setting of current smoker about 1/2 pack a day for the past 40 years. Less likely secondary to trauma or travel vs malignancy can not be ruled out. Diagnostics: CTA Chest (09/02/2024): Positive for pulmonary artery emboli in the distal right main pulmonary artery as well as upper and lower lobe right pulmonary artery branches. 29 mm cavitary lesion in the right upper lobe with surrounding pneumonia, highest on the differential diagnosis is infectious processes including active, tuberculosis, pulmonary infarction in the right upper lobe not excluded. Mild bilateral hydronephrosis Echo( 09/03/2024): Normal LV size and function. Estimated EF -55-60%. Normal diastolic function.RV normal size and function.No evidence of any right heart strain. Trace Mr and TR. No pericardial effusion. Venous Doppler LE BI: negative. D-Dimber 2940 BNP 53 PESI: 121 points, class IV high risk Reviewed the CTA and patient does have pulmonary embolus in the distal right main pulmonary artery at the bifurcation of the right upper and middle pulmonary arteries with thrombus burden is small with significant flow noted to the right upper and right middle pulmonary arteries. Rest of the CTA only showed minimal thrombus burden in the right lower lobe artery branches and right upper lobe artery branches. BNP was only 53, troponin was negative, CTA did not show any significant right heart strain. Echocardiogram was performed and showed normal RV function without any evidence of RV strain. Normal LV size and function with an EF of 60 to 65%. Trace MR and TR. On examination patient also has significant wheezing and has the cavity 3 lesion in the right upper lobe and pneumonia which could all explain her hypoxia with tachycardia and tachypnea. Given the above findings patient has only a small thrombus burden and does not require any kind of advanced interventions including any mechanical thrombectomy and recommend to continue medical management with heparin drip for now and transition to Eliquis as per PE protocol if no further procedures are planned. Plan -Cardiology Signing Off, appreciate consultation. -Heparin drip stopped, patient transitioned to Eliquis per PE protocol -No thrombectomy planned at this time -Consider hypercoagulable work up as outpatient, active smoker -monitor for obstructive shock #Right Lower extremity Edema Trace edema noted, likely in the setting of venous insufficiency vs less likley secondary to CHF as BNP normal and cxr negative to vascualr congestion vs DVT, consider repeat US. plan -Continue to monitor and consider repeat venous US -Heparin drip on board #Acute Respiratory Failure, secondary to pneumonia & COPD exacerbation, improving #Sepsis rule out, secondary to Pneumonia Pseudomonas #Cavitary Lesion #Pneumonia #Leukocytosis Patient noted to have a cavitary lesion likely in the setting of cocci given endemic region to the [place] vs less likely secondary to TB but can not be ruled out vs consider aspergillus or other less common such as actinomyces. Cxr (09/02/2024): Bibasilar pneumonia CTA Chest (09/03/2024): Positive for pulmonary artery emboli in the distal right main pulmonary artery as well as upper and lower lobe right pulmonary artery branches. 29 mm cavitary lesion in the right upper lobe with surrounding pneumonia,highest on the differential diagnosis is infectious processes including active tuberculosis, pulmonary infarction in the right upper lobe not excluded. UA positive Cocci Negative. -Sputum: Psuedomonas aeruginsoa, Urine Culture E.Coli, MRSA Negative, Blood Culture GPC (/) SOFA 4 points Plan -Azithromycin (09/03/24) and Cefepime (09/05/2024--) -Stopped Ceftriaxone (09/03/2024--09/05/2024)) -Airborne precations AFB, QTF Pending -Consider repeat Cocci #COPD exacerbation #COPD likely secondary to COPD exacerbation given wheezing noted on physical exam and continued active smoker. Plan -Azithromycin and Ceftriaxone (09/03/2024--) -Duonebs Q6HRs, as well as PRN -Budesonide 0.5 BID -Methylprednisolone 40 mg IVP qday (use with caution if Cocci positive) #Hypothyroidism Home medication of Levothyroxine. TSH 6.47 (H) Free T4 1.46 Plan -Continue home medication of Levothyroxine 150 mcg #Current Smoker Extensive smoking history, 20 pack year, 40 years about 1/2 pack a day. 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 Health Maintenance: Disp: Pt is currently admitted to floors for further management of acute respiratory failure, COPD exacerbation, w/ Cardiology Consulted for PE, cardiology signing off. Appreciate consultation. FEN: Cardiac Diet DVT: Eliquis 10 mg BID Code: Full Code - The patient's plan was discussed with attending Dr. Tiesha Edward MD PGY1 Internal Medicine Attending Provider Attestation/Addendum I have personally seen and examined the patient separately on the above date of service and discussed the plan of care with the resident. I reviewed the resident Dr. Teri Edward consultation progress note and agree with the resident findings and plan in the note above and have also edited the documentation to reflect my findings and plan. Avelino Motley M.D. Interventional Cardiology
[2024-09-05] MEDS: SENNA/DOCUSATE SOD 1 TAB TABLET PO (16:05)
[2024-09-05] MEDS: AZITHROMYCIN 250 MG TABLET 500 MG PO (20:57)
[2024-09-05] MEDS: CLOTRIMAZOLE VAG CR 1% 45 GM TUBE VAGINAL (20:58)
[2024-09-05] MEDS: ACETAMINOPHEN 325 MG TABLET 650 MG PO (23:17)
[2024-09-06] VITALS (9 sets, daily range): BP systolic 118–147; BP diastolic 90–107; PULSE 78–105; RESP 19–96; TEMP 36.4–37.5; O2SAT 90–100; BMI 29.7; BMI 29.9
[2024-09-06] MEDS: CEFEPIME INJ 2 GM in SODIUM CHLORIDE 0.9% (Popper) 50 ML IV ×3 (06:14→22:32)
[2024-09-06] MEDS: LEVOTHYROXINE SODIUM 125 MCG, LEVOTHYROXINE SODIUM 25 MCG 150 MCG PO (06:15)
[2024-09-06] MEDS: BUDESONIDE RT 0.5 MG/2 ML NEBU INH ×2 (06:27→18:40)
[2024-09-06 06:28] LABS: Basophils % (Auto) 0 % (0-2.5); Eosinophils % (Auto) 0 % (0-10); Hematocrit 32.5 % (36.0-46.0); Hemoglobin 11.3 g/dL (12.0-16.0); Immature Granulocytes % (Auto) 1 % (0-0); Immature Granulocytes Auto 0.08 Thou/mm3 (0.00-0.00); Lymphocytes % (Auto) 11 % (10-50); Mean Corpuscular HGB Conc 34.8 g/dl (31.0-37.0); Mean Corpuscular Hemoglobin 33.5 pg (25.0-35.0); Mean Corpuscular Volume 96 fL (80-100); Monocytes # (Auto) 0.6 Thou/mm3 (0.0-0.8); Monocytes % (Auto) 6 % (0-12); Neutrophils # (Auto) 7.6 Thou/mm3 (1.8-7.7); Neutrophils % (Auto) 82 % (37-80); Nucleated Red Blood Cell % 0 /100 WBC (0); Platelet Count 169 Thou/mm3 (140-440); RDW Standard Deviation 55.6 fL (36.4-46.3); Red Blood Count 3.37 Miln/mm3 (4.00-5.20); White Blood Count 9.2 Thou/mm3 (3.6-11.0)
[2024-09-06 06:38] LABS: INR 1.4 (0.9-1.3); Prothrombin Time 14.5 Seconds (9.0-12.2)
[2024-09-06 06:41] LABS: Albumin, Serum 3.6 gm/dL (3.4-4.8); Anion Gap 4 (7-16); BUN/Creatinine Ratio 17 Ratio (12-20); Blood Urea Nitrogen 12 mg/dL (9-23); Calcium 8.8 mg/dL (8.3-10.6); Calcium (Corrected) 9.1 mg/dL (8.5-10.1); Carbon Dioxide 23.2 mMol/L (20.0-31.0); Chloride 108 mMol/L (98-107); Creatinine (Component) 0.7 mg/dL (0.6-1.3); Estimated Creatinine Clearance 79.4 mL/min (>60); Glucose 97 mg/dL (74-106); Magnesium 1.9 mg/dL (1.6-2.6); Osmolality,Calculated 269 (275-295); Phosphorous 2.5 mg/dL (2.4-5.1); Potassium 4.1 mMol/L (3.4-5.1); Sodium 135 mMol/L (136-145); eGFR > 60 See Note
--- NOTE | 2024-09-06 08:24 | PD.PUCONS ---
HPI Pulmonology Consult Data of Consult Requesting Physician: Donal Orellana MD Primary Care Provider: Physician No Primary/Family Consult Narrative History of present illness: Patient is a 59 year old female with a past medical history of HTN, hypothyroidism, COPD, MS, OA, and 20 pack year history (current smoker) who was admitted for acute hypoxic respiratory failure secondary to COPD exacerbation and PE. Evaluated by cardiology, no plan for thrombectomy. Transitioned within 48 hours to [place]. Remains on heparin gtt at this time. Placed in isolation for possible TB. 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 No known history of coccidiodomycosis but lifelong resident. No incarceration, snf facility resident, overseas travel/ living abroad. On inhaler with no significant COPD exacerbation history until now. Did grown pseudomonas and responding to antibiotics now. Having wheezing at the time of visit. No recent fever, chills, or night sweats. No prior imaging for comparison. cc:: cc: Donal Orellana MD Review of Systems Review of Systems Narrative Review of Systems: Pertinent ROS completed with significant findings included in HPI above Past Medical History Past Medical History Comments PMH COMMENT: PMH, PSH, Soc Hx, Fam Hx reviewed with pertinent factors included in HPI above. Meds Home Medications and Allergies Home Medications ?Medication ?Instructions ?Recorded ?Confirmed ?Type montelukast 10 mg tablet 1 tab PO HS ##0 09/01/16 09/10/24 History (Singulair) albuterol sulfate 90 mcg/actuation 1 puff inhalation Q6H PRN 03/29/19 09/10/24 History aerosol inhaler Shortness Of Breath fluticasone furoate 200 1 inh inhalation QDAY 03/29/19 09/10/24 History mcg/actuation blister powder for inhalation (Arnuity Ellipta) ciprofloxacin HCl 750 mg tablet 750 mg PO BID 09/10/24 History levothyroxine 150 mcg tablet 125 mcg PO QDAY 09/10/24 History Allergies Allergy/AdvReac Type Severity Reaction Status Date / Time adhesive tape Allergy Severe ANY Verified 09/10/24 13:33 MEDICAL TAPE / RASH Penicillins Allergy Mild Rash Verified 09/10/24 13:33 aspirin Allergy Unknown Verified 09/10/24 13:33 Sulfa (Sulfonamide Allergy Unknown Verified 09/10/24 13:33 Antibiotics) sulfacetamide Allergy Unknown Verified 09/10/24 13:33 Exam Vital Signs Temp Pulse Resp BP Pulse Ox O2 Del Method O2 Flow Rate 98.0 F 102 H 24 H 143/91 H 94 L Room Air 2 09/06/24 08:00 09/06/24 08:00 09/06/24 08:00 09/06/24 08:00 09/06/24 08:00 09/06/24 08:00 09/05/24 00:00 Narrative Exam GEN: Mild respiratory distress HEENT: EOMI, MMM, no cyanosis centrally CHEST: mild accessory muscle use PULM: active wheezing CVS: S1/S2+ RRR ABD: soft, NT, ND, BS+ EXT: no clubbing or cyanosis, no pedal edema NEURO: Nonfocal on gross examination PSYCH: Normal mood/ affect Physical Exam Completion Physical Exam Complete?: Yes Results - Gear [employer]inder Labs 09/07/24 04:25 09/07/24 04:25 Labs: Short CBC 09/06/24 Range/Units 06:08 WBC 9.2 (3.6-11.0) Thou/mm3 Hgb 11.3 L (12.0-16.0) g/dL Hct 32.5 L (36.0-46.0) % Plt Count 169 D (140-440) Thou/mm3 BMP 09/06/24 06:08 Sodium 135 L Potassium 4.1 Chloride 108 H Carbon Dioxide 23.2 BUN 12 Creatinine 0.7 Glucose 97 Calcium 8.8 Liver Function 09/06/24 Range/Units 06:08 Albumin 3.6 D (3.4-4.8) gm/dL ABG Interpretation ABG results: 09/02/24 09/02/24 20:00 20:59 ABG pH 7.43 7.43 ABG pCO2 33 30 L ABG pO2 39 L* 61 L D ABG HCO3 22 19 L ABG O2 Saturation 72 L 92 ABG Base Excess -2 -4 L Assessment & Plan Additional Plan Additional Plan: RUL cavity/ pneumatocele with surrounding infection/ pseudomonas pneumonia COPD with acute exacerbation 2/2 pneumonia Requested RT give nebulizer now given wheezing Favor infected parenchyma around a pre-existing pneumatocele as lesion is thin walled with surrounding ground glass, unfortunately no prior imaging for comparison Do not suspect that the patient has TB, no risk factors Psuedomonas to be treated and complete course of 10-14 days Counseled patient to follow up on imaging in next 4 weeks to assess lesion and pneumonia, if cleared then routine follow up in next 3-6 months for stability Okay to maintain on her home inhalers, no exacerbation history if favor asthma but on ICS and may be better served by LABA alone D/W medicine, can be discharged and have follow up with public health for final results and treatment if needed Remain available if any questions Provider Notation Provider Notation: Although this document has been carefully reviewed, there may still be some phonetic and other typographical errors. These errors are purely grammatical due to imperfections in the software program and should not be construed in any way to compromise the substance of the patient's medical care during this visit. Thank you for the opportunity and privilege in assisting you with this patient's care and management.
[2024-09-06] MEDS: Magnesium Sulfate 2 GM Ivpb 2 GM/50 ML BAG IV (09:14)
[2024-09-06] MEDS: PANTOPRAZOLE 40 MG TABLET PO (09:14)
[2024-09-06] MEDS: APIXABAN 2.5 MG TABLET 10 MG PO ×2 (09:14→22:32)
[2024-09-06] MEDS: SENNA/DOCUSATE SOD 1 TAB TABLET PO (10:26)
[2024-09-06] MEDS: POLYETHYLENE GLYCOL 17 GM PACKET 34 GM PO (10:26)
--- NOTE | 2024-09-06 11:16 | ESPR_ITS ---
<Statement entered by Donal Orellana MD - 09/11/24 08:56> I reviewed above note and agree with findings and plans. I have also personally examined the patient with medicine team and went over assessment and plan with medical team including pr intern and resident physician. Documentation for date of: 09/06/24 Subjective Subjective Interval history: Patient seen and examined at bedside. Patient complains of constipation, started on MiraLAX and senna/docusate, ordered KUB, will give milk of mag x 1. Otherwise patient is stable on room air, will continue with Eliquis for PE, IV cefepime for pneumonia. Electrolytes were replaced today, labs and vitals reviewed. Pulmonology consulted for cavitary lesion, appreciate recommendations Patient is pending TB rule out. Exam Vital Signs Temp Pulse Resp BP Pulse Ox O2 Del Method O2 Flow Rate 98.0 F 102 H 24 H 143/91 H 94 L Room Air 2 09/06/24 08:00 09/06/24 08:00 09/06/24 08:00 09/06/24 08:00 09/06/24 08:00 09/06/24 08:00 09/05/24 00:00 Narrative Exam General: A/O x3, no acute distress Eyes: PERRL, EOMI. Anicteric, vision grossly intact. Ears: No ear pain, no ear discharge, Hearing grossly intact. Nose: No nasal discharge. Mouth/Throat: Moist mucous membranes, no redness, no lesions. Neck: Neck supple, non-tender, no cervical lymphadenopathy. Lungs: Wheezing AMALIA and rhonchi, No accessory muscle use. Cardio: Normal S1/S2, regular rhythm, no murmurs, no JVD Abdomen: Soft, non-tender, no palpable masses, peristalsis present, no guarding or rebound. Extremities: Symmetrical, no significant deformities, 1+ peripheral edema on R LE and trace in L LE , non-tender, peripheral pulses presents. Skin: No rashes, no lesions, warm to touch. Neuro: No focal neurological deficits. motor and sensory intact. Psych: Cooperative, appropriate mood and effect. Objective Labs 09/06/24 06:08 09/06/24 06:08 Labs: Laboratory Results - last 24 hr 09/03/24 09/05/24 09/06/24 04:12 07:55 06:08 WBC 9.2 RBC 3.37 L Hgb 11.3 L Hct 32.5 L MCV 96 MCH 33.5 MCHC 34.8 RDW Std Deviation 55.6 H Plt Count 169 D Neut % (Auto) 82 H Lymph % (Auto) 11 [place] % (Auto) 6 Eos % (Auto) 0 Baso % (Auto) 0 Neut # (Auto) 7.6 Lymph # (Auto) 1.0 [place] # (Auto) 0.6 Eos # (Auto) 0.0 Baso # (Auto) 0.0 Immature Gran # (Auto) 0.08 H Absolute Nucleated RBC 0.00 Immature Gran % 1 H Nucleated RBC % 0 PT 14.5 H INR 1.4 H Sodium 135 L Potassium 4.1 Chloride 108 H Carbon Dioxide 23.2 Anion Gap 4 L BUN 12 Creatinine 0.7 Estim Creat Clear Calc 79.4 eGFR > 60 BUN/Creatinine Ratio 17 Glucose 97 Calculated Osmolality 269 L Calcium 8.8 Corrected Calcium 9.1 Phosphorus 2.5 Magnesium 1.9 Albumin 3.6 D Mycobacterial Culture See Sep Rpt TB Test (QFT) See Sep Rpt ABG Interpretation ABG results: 09/02/24 09/02/24 20:00 20:59 ABG pH 7.43 7.43 ABG pCO2 33 30 L ABG pO2 39 L* 61 L D ABG HCO3 22 19 L ABG O2 Saturation 72 L 92 ABG Base Excess -2 -4 L Quality Measures Quality Measures sepsis Current suspected stage: ruled out Possible source: pulmonary Blood cultures ordered: yes Antibiotic ordered: Yes Assessment & Plan Assessment Current Active Medications: Generic Name Dose Route Start Last Admin Trade Name Freq PRN Reason Stop Dose Admin Acetaminophen 650 mg 09/03/24 09:14 09/05/24 23:17 Acetaminophen 325 Mg Tablet PO 10/03/24 00:00 650 mg Q6H PRN Administration pain(1-3) and Fever >100.4 Hydrocodone Bitart/Acetaminophen 1 tab 09/05/24 11:01 Hydrocodone/Apap 5/325 Tablet PO 09/08/24 00:00 Q4HR PRN PAIN SCALE 4-10(Mod-Sev Al Hydrox/Mg Hydrox/Simethicone 30 ml 09/04/24 14:57 Mg Hyd/Al Hyd/Regine (Maalox Reg) Susp 30 Ml Udc PO 10/04/24 14:56 QID PRN UPSET STOMACH/INDIGESTION Albuterol/Ipratropium 3 ml 09/03/24 07:35 Albuterol/Ipratropium (Duoneb) Rt Suzi 3 Ml Nebu INH 10/03/24 07:34 Q2HR PRN SHORTNESS OF BREATH OR WHEEZE Apixaban 10 mg 09/05/24 11:00 09/06/24 09:14 Apixaban 2.5 Mg Tablet PO 09/11/24 21:01 10 mg BID LYLE Administration Azithromycin 500 mg 09/03/24 00:10 09/05/24 20:57 Azithromycin 250 Mg Tablet PO 09/10/24 00:09 500 mg DAILY@2100 LYLE Administration Budesonide 0.5 mg 09/03/24 14:13 09/06/24 06:27 Budesonide Rt 0.5 Mg/2 Ml Nebu INH 10/03/24 14:12 0.5 mg BIDRT LYLE Administration Clotrimazole 0 gm 09/03/24 21:00 09/05/24 20:58 Clotrimazole Vag Cr 1% 45 Gm Tube VAGINAL 09/10/24 20:59 1 appl HS LYLE Administration Cefepime HCl 2 gm/ Sodium 50 mls @ 100 mls/hr 09/05/24 10:58 09/06/24 06:14 Chloride IV 09/12/24 10:57 100 mls/hr Q8HR LYLE Administration Levothyroxine Sodium 125 mcg/ 150 mcg 09/03/24 07:45 09/06/24 06:15 Levothyroxine Sodium 25 mcg PO 10/03/24 07:44 150 mcg ACBR LYLE Administration Ondansetron HCl 4 mg 09/03/24 00:00 09/03/24 22:58 Ondansetron Inj 2 Mg/Ml Inj 2 Ml IVP 10/03/24 00:00 4 mg Q6H PRN Administration NAUSEA OR VOMITING Protocol Pantoprazole Sodium 40 mg 09/03/24 09:00 09/06/24 09:14 Pantoprazole 40 Mg Tablet PO 10/03/24 08:59 40 mg QDAY LYLE Administration Polyethylene Glycol 34 gm 09/06/24 09:15 09/06/24 10:26 Polyethylene Glycol 17 Gm Packet PO 10/06/24 09:14 34 gm QDAY LYLE Administration Sennosides 1 tab 09/06/24 09:15 09/06/24 10:26 Senna/Docusate Sod 1 Tab Tablet PO 10/06/24 09:14 1 tab QDAY LYLE Administration Protocol Sodium Chloride 9 ml 09/02/24 18:50 09/04/24 13:55 Sodium Chloride Rt Suzi 0.9% 3 Ml Nebu INH 10/02/24 18:49 3 ml PRN PRN Administration SOLN Plan Assessment and Plan: 59-year-old female with past medical history of hypothyroidism, hypertension, COPD/asthma, and active smoker who was admitted to the hospital on 09/03/2024 for acute hypoxic respiratory failure likely secondary to pulmonary embolism and community-acquired pneumonia. #Acute hypoxic respiratory failure, resolving #Intermediate low risk pulmonary embolism #Community-acquired pneumonia, Pseudomonas pneumonia #29 mm cavitary lesion #COPD exacerbation #TB rule out Patient states that she started having increased shortness of breath today which was out of the ordinary compared to her normal shortness of breath given her COPD/asthma. Patient denied having any productive cough with any blood change sputum. Patient denies having any history of blood clots or traveling outside the [place]. Patient denied any night sweats or recent weight loss. Chest CTA showed pulmonary embolism of the distal main right pulmonary artery as well as a upper and lower lobe pulmonary artery branches. Also showed a thin- walled 29 mm cavitary lesion in the right upper lobe which was concerning for possible tuberculosis versus pulmonary infarction. Patient's chest x-ray that show bibasilar pneumonia D-dimer elevated 2940 Patient saturating well on nasal cannula, but was noted to have wheezing bilaterally. PESI score 121, class IV high risk, cocci IgM and IgG negative Blood culture 09/02/202403/22 bottle preliminary shows GPC resembling staph, second culture has no growth Echocardiogram 09/03: Normal LV size and function. Estimated EF -55-60%. Normal diastolic function. RV normal size and function.No evidence of any right heart strain. Trace Mr and TR. No pericardial effusion. Sputum culture shows Pseudomonas resistant to ceftriaxone. Patient received ceftriaxone 09/03/24-09/05/2024 Urine culture shows pansensitive E. coli Plan: -Continue Eliquis 10 mg twice daily for 7 days -Continue azithromycin 09/03/24- and cefepime 09/05/24- -DuoNebs scheduled every 6 hours/DuoNebs as needed -Follow sputum culture for tuberculosis -Follow blood culture speciation, will monitor for now -QuantiFERON pending -Isolation precautions Airborne precautions -Consulted cardiology, appreciate recommendations -Consulted pulmonology, appreciate recommendations #Lactic acidosis, resolved #Electrolyte imbalance #Hypokalemia #Hypomagnesemia Patient came with potassium of 2.5 and magnesium of 1.5 In the ED patient received 2 g magnesium and 50 mEq of potassium Patient had a lactic acid of 2.2 and uptrend to 2.7 Plan: -Will repeat potassium and magnesium levels -Will replete as necessary #Right lower extremity edema Patient has 2+ right lower extremity pitting edema compared to left lower extremity which only shows some trace edema. No echo on file Venous Doppler was negative for DVT Peripheral pulses were present bilaterally Patient on diuretics at home, was recently started on spironolactone, will hold for now No heart failure noted on echocardiogram Plan: - Consider compression stockings, elevating leg - Consulted cardiology, appreciate recommendations #Vulvovaginal candidiasis Noted on exam, was given fluconazole 150 x 1. -Nystatin cream at bedtime for 7 days #Hypothyroidism Patient's TSH was 6.47 and free T4 was 1.6 on admission -Resume home dose levothyroxine. #Hx of hypertension Patient's blood pressure has been stable during admission Will hold off on antihypertensive medications for now. Disposition: Patient admitted to telemetry for AHRF 2/2 PE and PNA, TB rule out. Diet: Cardiac GI prophylaxis: protonix DVT prophylaxis: Eliquis Code: Full Code Case discussed with Attending Dr. Orellana. Karina Parr PGY1 Disclaimer: This note was dictated by speech recognition. Minor errors in switchboard installer may be present due to voice recognition software.
--- NOTE | 2024-09-06 14:33 | XR_ITS ---
Examination: Abdomen AP single view Technique: AP portable supine abdomen, single view Exam date and time: September 06, 2024 1436 hours INDICATIONS: Constipation today. FINDINGS: Moderate to large amounts of stool and air throughout the colon Also some mild small bowel ileus No free air Significant osteopenia IMPRESSION: Moderate to large amounts of air and stool throughout the colon, no obstruction
[2024-09-06] MEDS: Milk Of Magnesia Susp 30 ML UDC PO (15:58)
[2024-09-06 17:49] LABS: (1-3)-B-D-glucan* <31 pg/mL
[2024-09-06] MEDS: AZITHROMYCIN 250 MG TABLET 500 MG PO (22:32)
[2024-09-06] MEDS: CLOTRIMAZOLE VAG CR 1% 45 GM TUBE VAGINAL (22:49)
[2024-09-06] MEDS: HYDROcodone/APAP 5/325 TABLET 1 TAB PO (22:49)
[2024-09-07] VITALS: BP 125/95; PULSE 89; PULSE 94; RESP 19; TEMP 36.9; O2SAT 91
[2024-09-07] MEDS: HYDROcodone/APAP 5/325 TABLET 1 TAB PO ×3 (03:08→13:00)
[2024-09-07 04:00] VITALS: BP 118/95; PULSE 95; RESP 19; TEMP 36.7; O2SAT 94
[2024-09-07 05:35] LABS: Basophils % (Auto) 0 % (0-2.5); Eosinophils % (Auto) 1 % (0-10); Hematocrit 36.7 % (36.0-46.0); Hemoglobin 12.5 g/dL (12.0-16.0); Immature Granulocytes % (Auto) 1 % (0-0); Immature Granulocytes Auto 0.08 Thou/mm3 (0.00-0.00); Lymphocytes # (Auto) 0.9 Thou/mm3 (1.0-4.8); Lymphocytes % (Auto) 11 % (10-50); Mean Corpuscular HGB Conc 34.1 g/dl (31.0-37.0); Mean Corpuscular Hemoglobin 32.2 pg (25.0-35.0); Mean Corpuscular Volume 95 fL (80-100); Monocytes % (Auto) 13 % (0-12); Neutrophils # (Auto) 6.1 Thou/mm3 (1.8-7.7); Neutrophils % (Auto) 75 % (37-80); Nucleated Red Blood Cell % 0 /100 WBC (0); Platelet Count 194 Thou/mm3 (140-440); RDW Standard Deviation 54.5 fL (36.4-46.3); Red Blood Count 3.88 Miln/mm3 (4.00-5.20); White Blood Count 8.1 Thou/mm3 (3.6-11.0)
[2024-09-07 05:48] LABS: Albumin, Serum 3.1 gm/dL (3.4-4.8); Anion Gap 4 (7-16); BUN/Creatinine Ratio 18 Ratio (12-20); Blood Urea Nitrogen 11 mg/dL (9-23); Calcium (Corrected) 8.7 mg/dL (8.5-10.1); Carbon Dioxide 24.2 mMol/L (20.0-31.0); Chloride 109 mMol/L (98-107); Creatinine (Component) 0.6 mg/dL (0.6-1.3); Estimated Creatinine Clearance 90.6 mL/min (>60); Glucose 87 mg/dL (74-106); Magnesium 1.9 mg/dL (1.6-2.6); Osmolality,Calculated 272 (275-295); Potassium 3.7 mMol/L (3.4-5.1); Sodium 137 mMol/L (136-145); eGFR > 60 See Note
[2024-09-07 06:00] VITALS: BMI 29.9
[2024-09-07 06:09] LABS: Interpretation NEGATIVE
[2024-09-07] MEDS: LEVOTHYROXINE SODIUM 125 MCG, LEVOTHYROXINE SODIUM 25 MCG 150 MCG PO (06:14)
[2024-09-07] MEDS: CEFEPIME INJ 2 GM in SODIUM CHLORIDE 0.9% (Popper) 50 ML IV (06:14)
[2024-09-07] MEDS: BUDESONIDE RT 0.5 MG/2 ML NEBU INH (06:44)
[2024-09-07 06:46] VITALS: PULSE 94; PULSE 95; RESP 20; RESP 22; O2SAT 92; O2SAT 97
[2024-09-07 08:00] VITALS: BP 135/104; PULSE 110; PULSE 94; RESP 20; TEMP 37; O2SAT 94
[2024-09-07] MEDS: LACTULOSE SYRUP 20 GM/30 ML UDC PO (08:30)
[2024-09-07] MEDS: APIXABAN 2.5 MG TABLET 10 MG PO (08:31)
[2024-09-07] MEDS: PANTOPRAZOLE 40 MG TABLET PO (08:31)
[2024-09-07] MEDS: POLYETHYLENE GLYCOL 17 GM PACKET 34 GM PO (08:31)
[2024-09-07] MEDS: POT PHOS 15 mMol in NS 250 ML 15 MMOL/250 ML BAG 62.5 MMOL IV (08:31)
[2024-09-07] MEDS: SENNA/DOCUSATE SOD 1 TAB TABLET PO (08:32)
--- NOTE | 2024-09-07 08:38 | PC.SS ---
Follow up note: Waiting for AFBs. Pt will return home with Home Health Services.
--- NOTE | 2024-09-07 09:16 | PD.RESPRO ---
Documentation for date of: 09/07/24 Exam Vital Signs Temp Pulse Resp BP Pulse Ox O2 Del Method O2 Flow Rate 98.6 F 94 20 135/104 H 94 L Room Air 2 09/07/24 08:00 09/07/24 08:00 09/07/24 08:00 09/07/24 08:00 09/07/24 08:00 09/07/24 08:00 09/07/24 04:00 Objective Labs 09/07/24 04:25 09/07/24 04:25 Labs: Laboratory Results - last 24 hr 09/04/24 09/07/24 05:06 04:25 WBC 8.1 RBC 3.88 L Hgb 12.5 Hct 36.7 MCV 95 MCH 32.2 MCHC 34.1 RDW Std Deviation 54.5 H Plt Count 194 Neut % (Auto) 75 Lymph % (Auto) 11 [place] % (Auto) 13 H Eos % (Auto) 1 Baso % (Auto) 0 Neut # (Auto) 6.1 Lymph # (Auto) 0.9 L [place] # (Auto) 1.0 H Eos # (Auto) 0.0 Baso # (Auto) 0.0 Immature Gran # (Auto) 0.08 H Absolute Nucleated RBC 0.00 Immature Gran % 1 H Nucleated RBC % 0 Sodium 137 Potassium 3.7 Chloride 109 H Carbon Dioxide 24.2 Anion Gap 4 L BUN 11 Creatinine 0.6 Estim Creat Clear Calc 90.6 eGFR > 60 BUN/Creatinine Ratio 18 Glucose 87 Calculated Osmolality 272 L Calcium 8.0 L Corrected Calcium 8.7 Phosphorus 2.0 L Magnesium 1.9 Albumin 3.1 L D Beta-(1,3)-D-Glucan <31 B-(1,3)-D-Glucan Intrp NEGATIVE ABG Interpretation ABG results: 09/02/24 09/02/24 20:00 20:59 ABG pH 7.43 7.43 ABG pCO2 33 30 L ABG pO2 39 L* 61 L D ABG HCO3 22 19 L ABG O2 Saturation 72 L 92 ABG Base Excess -2 -4 L Quality Measures Quality Measures sepsis Possible source: pulmonary Blood cultures ordered: yes Assessment & Plan Assessment Current Active Medications: Generic Name Dose Route Start Last Admin Trade Name Freq PRN Reason Stop Dose Admin Acetaminophen 650 mg 09/03/24 09:14 09/05/24 23:17 Acetaminophen 325 Mg Tablet PO 07/16/25 00:00 650 mg Q6H PRN Administration pain(1-3) and Fever >100.4 Hydrocodone Bitart/Acetaminophen 1 tab 09/05/24 11:01 09/07/24 08:31 Hydrocodone/Apap 5/325 Tablet PO 09/08/24 00:00 1 tab Q4HR PRN Administration PAIN SCALE 4-10(Mod-Sev Al Hydrox/Mg Hydrox/Simethicone 30 ml 09/04/24 14:57 Mg Hyd/Al Hyd/Regine (Maalox Reg) Susp 30 Ml Udc PO 10/04/24 14:56 QID PRN UPSET STOMACH/INDIGESTION Albuterol/Ipratropium 3 ml 09/03/24 07:35 Albuterol/Ipratropium (Duoneb) Rt Suzi 3 Ml Nebu INH 10/03/24 07:34 Q2HR PRN SHORTNESS OF BREATH OR WHEEZE Apixaban 10 mg 09/05/24 11:00 09/07/24 08:31 Apixaban 2.5 Mg Tablet PO 09/11/24 21:01 10 mg BID LYLE Administration Budesonide 0.5 mg 09/03/24 14:13 09/07/24 06:44 Budesonide Rt 0.5 Mg/2 Ml Nebu INH 10/03/24 14:12 0.5 mg BIDRT LYLE Administration Clotrimazole 0 gm 09/03/24 21:00 09/06/24 22:49 Clotrimazole Vag Cr 1% 45 Gm Tube VAGINAL 09/10/24 20:59 1 appl HS LYLE Administration Cefepime HCl 2 gm/ Sodium 50 mls @ 100 mls/hr 09/05/24 10:58 09/07/24 06:14 Chloride IV 09/12/24 10:57 100 mls/hr Q8HR LYLE Administration Potassium Phosphate 15 mmol in 250 mls @ 62.5 mls/hr 09/07/24 07:29 09/07/24 08:31 Pot Phos 15 Mmol In Ns 250 Ml IV 09/07/24 11:28 62.5 mls/hr X1 ONE Administration Levothyroxine Sodium 125 mcg/ 150 mcg 09/03/24 07:45 09/07/24 06:14 Levothyroxine Sodium 25 mcg PO 10/03/24 07:44 150 mcg ACBR LYLE Administration Ondansetron HCl 4 mg 09/03/24 00:00 09/03/24 22:58 Ondansetron Inj 2 Mg/Ml Inj 2 Ml IVP 10/03/24 00:00 4 mg Q6H PRN Administration NAUSEA OR VOMITING Protocol Pantoprazole Sodium 40 mg 09/03/24 09:00 09/07/24 08:31 Pantoprazole 40 Mg Tablet PO 10/03/24 08:59 40 mg QDAY LYLE Administration Polyethylene Glycol 34 gm 09/06/24 09:15 09/07/24 08:31 Polyethylene Glycol 17 Gm Packet PO 10/06/24 09:14 34 gm QDAY LYLE Administration Sennosides 1 tab 09/06/24 09:15 09/07/24 08:32 Senna/Docusate Sod 1 Tab Tablet PO 10/06/24 09:14 1 tab QDAY LYLE Administration Protocol Sodium Chloride 9 ml 09/02/24 18:50 09/04/24 13:55 Sodium Chloride Rt Suzi 0.9% 3 Ml Nebu INH 10/02/24 18:49 3 ml PRN PRN Administration SOLN
[2024-09-07] MEDS: LACTULOSE SYRUP 20 GM/30 ML UDC 40 GM PO (10:41)
--- NOTE | 2024-09-07 11:41 | PC.SS ---
SS has spoken to patient's dtr, Michelle [phone] who states she will provide transportation home and is aware pt will today. SS explained physicians are ordering HH. Per Michelle, pt had [facility] in the past and is agreeable to utilizes [facility] again. SS has informed transfer nurseMark. Bedside nurseJaren is aware.
[2024-09-07 12:00] VITALS: BP 139/109; PULSE 107; PULSE 92; RESP 20; TEMP 36.8; O2SAT 95
--- NOTE | 2024-09-07 14:13 | PC.CC ---
Per SS pt is open with [facility].
--- NOTE | 2024-09-07 16:44 | ESDS_ITS ---
<Statement entered by Donal Orellana MD - 09/11/24 08:57> I reviewed above note and agree with findings and plans. I have also personally examined the patient with medicine team and went over assessment and plan with medical team including internal combustion engine subassembler and resident physician. Planned Discharge Date 09/07/24 DS: Providers Provider Date of admission: 09/03/24 00:00 Primary care physician: Physician No Primary/Family Admitting Provider: Tavon Mak MD Attending Provider on Admission: Donal Orellana MD Consults: 09/03/24 08:16 Consult to Cardiology Routine Comment: Pulmonary Embolism Consulting Provider: Avelino Motley 09/06/24 08:09 Consult to Pulmonology Routine Comment: Cavitary Lesion, PE Consulting Provider: Carrillo Goss I 09/06/24 09:16 Referral Physical Therapy Routine Comment: Physician Instructions: Instructions: TB Rule Out, Ambulates with Walker Attending Provider on DC: Donal Orellana MD Discharging Provider: Donal Orellana MD Anticipated date of discharge: 09/07/24 DS: Diagnosis Problem List Completed Was Problem List Reviewed/Reconciled?: Yes Hospital Course Hospital Course Hospital course: Hospital course: Ms. Luis is a 59-year-old female with past medical history of COPD/asthma, hypothyroidism, hypertension and active smoker who presented to [facility] emergency department on September 03, 2024 with a chief complaint of shortness of breath. On presentation patient's chest CTA showed pulmonary embolism of distal main right pulmonary artery as well as right upper and lower lobe pulmonary artery branches, also showed a thin-walled 29 mm cavitary lesion which was concerning for possible tuberculosis versus pulmonary infarction. Chest x-ray was concerning for bibasilar pneumonia. Patient was significantly hypoxic on presentation, was started on supplemental oxygen, PESI score score 121, high risk class IV PE, patient started on IV heparin cardiology was consulted and echocardiogram was negative for any right heart strain, no indication for mechanical thrombectomy and patient was transitioned to Eliquis. Patient was given IV ceftriaxone and azithromycin, eventually sputum culture revealed Pseudomonas pneumonia resistant to ceftriaxone hence antibiotic therapy was optimized to cefepime. Patient was noted to have vulvovaginal candidiasis, was given fluconazole and topical nystatin. For the cavitary lesion QuantiFERON ordered was indeterminate, TB cultures were sent to [facility], cocci is negative, pulmonology was consulted. 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 Considering that patient was on room air, had improved with IV antibiotics, did not require thrombectomy for intermediate low risk PE, decision was made to discharge patient after discussion with cardiology and pulmonology. Patient to be discharged home on home health on p.o. Eliquis and oral ciprofloxacin. Patient to continue all other medications as prescribed. Patient is stable for discharge, responded well to hospital treatment. Recommendations: - Follow outpatient with [facility] for tuberculosis results - Repeat CT scan of chest in 3 to 5 months to assess pulmonary cyst, patient is at increased risk of pneumothorax - Continue Eliquis, follow-up with PCP outpatient. Consider hypercoagulable panel once treatment is completed. - Complete treatment with antibiotic - Patient educated on risks and benefits of being on anticoagulation. - Quit smoking, use nicotine patches Discharge diagnosis: #Acute hypoxic respiratory failure, resolved #Intermediate low risk pulmonary embolism #Community-acquired pneumonia, Pseudomonas pneumonia #29 mm cavitary lesion, suspicion of pulmonary cyst #COPD exacerbation #TB rule out #Cocci ruled out #Right lower extremity edema #Vulvovaginal candidiasis #Hypertension #Hypothyroidism #Lactic acidosis, resolved #Electrolyte imbalance #Hypokalemia #Hypomagnesemia #Chronic active smoker Case discussed with Attending Dr. Orellana. Karina Parr PGY1 Disclaimer: This note was dictated by speech recognition. Minor errors in wooden furniture polisher may be present due to voice recognition software. Time spent discussing smoking cessation with patient: more than 10 minutes Status at Discharge Overall status at discharge: patient is progressing back to baseline Time Spent with Patient Time attestation: Total time spent providing and/or coordinating discharge services: Time spent: Greater than 30 minutes Home Health Home Health Referral Orders: 09/07/24 11:01 Home Health Referral Routine Reason For Exam: PT Home-Bound The patient must either because of illness or injury, need the aid of supportive devices such as crutches, canes, wheelchairs, and walkers; the use of special transportation; or the assistance of another person in order to leave their place of residence; OR have a condition such that leaving his or her home is medically contraindicated. In addition, the patient also meets the following criteria: patient is normally unable to leave the home and leaving home requires considerable taxing effort. Addendum to Home Health Certification Practitioner's Certification: I certify that the patient has been under my care in the hospital and the care of attending physician (see below). We had a [id number] encounter on (see date below). My clinical findings indicate that the patient is home bound per the above criteria and the Home Health Services noted in these orders are medically necessary. The primary reason for the [id number] encounter is related to the fact that the patient requires home health services. Date Certifying [id number] Physician Encounter: 09/03/24 Physician's Name who will Assume Oversight for HH Services: Barrington Ash([facility]) Physician's Phone No.who will Assume Oversight for Service: CONTRACT LAW SPECIALIST - Community Resources: No PT to Evaluate: Yes PT to evaluate and provide a treatmnet plan to increase patient's mobility and strength. Wound Care: No IV Therapy: No RN Safety Evaluation: Yes RN to evaluate and create a plan of care that will produce positive outcomes. Palliative Treatment: No Palliative treatment and evaluate the need for hospice. Home Health Aide - Personal Care: No Home Health Aide to assist with any ADL's. Exam Vital Signs Temp Pulse Resp BP Pulse Ox O2 Del Method O2 Flow Rate 98.3 F 92 20 139/109 H 95 Room Air 2 09/07/24 12:09/07/24 12:09/07/24 12:09/07/24 12:09/07/24 12:09/07/24 12:09/07/24 04:00 Discharge Plan Plan Patient Disposition: Home w/HOME HEALTH Patient condition on transfer: Stable Care Plan Goals: Continue daily antibiotic ciprofloxacin 750mg for 12 more days to complete pneumonia treatment Take Eliquis 10mg tonight (2 Tablets) and then twice a day for twelve more days. Then transition to Eliquis 5mg twice daily. Take miralax daily for constipation and senna as needed. Stop Ibuprufen, you are at an increased risk of bleeding as we started you on a blood thinner. Continue all other home medications. Quit Smoking, repeat a CT Scan of chest in 3-5 months. Follow up with PCP in 1-2 weeks. Follow up with data processing consultant outpatient. If you do not have a PCP, follow-up in [facility] in 1 to 2 weeks. Call [phone] to make an appointment Address: [facility], [address], [address], [place], [address] Return to ED if symptoms return or worsen. Prescriptions/Referrals Prescriptions/Med Rec: New Eliquis 5 mg tablet 10 mg PO BID 12 Days Qty: 50 0RF Rx Instructions: Take first dose tonight and take 10mg twice daily for 12 more days. Then transition to 5mg twice daily. sennosides-docusate sodium [Senna with Docusate Sodium] 8.6-50 mg tablet 1 tab-cap PO QDAY PRN (Reason: constipation) Qty: 30 0RF polyethylene glycol 3350 [Miralax] 17 gram powder in packet 17 g PO QDAY Qty: 30 0RF ciprofloxacin HCl 750 mg tablet 750 mg PO BID 12 Days Qty: 24 0RF Eliquis 5 mg tablet 5 mg PO BID 30 Days Qty: 60 0RF Rx Instructions: Start 5mg twice daily starting September 19 2024 Continued lisinopril 10 mg tablet 20 mg PO QDAY ergocalciferol (vitamin D2) [Vitamin D2] 1,250 mcg (50,000 unit) capsule 50,000 unit PO QWEEK 90 Days Qty: 12 1RF spironolactone 50 mg tablet 50 mg PO QDAY Qty: 30 0RF levothyroxine 150 mcg tablet 150 mcg PO QDAY Qty: 30 2RF montelukast [Singulair] 10 MG tablet 1 tab PO HS Qty: 0 albuterol sulfate 90 mcg/actuation Hfa Aerosol Inhaler 1 puff INHALATION Q6H PRN (Reason: Shortness Of Breath) Arnuity Ellipta 200 mcg/actuation Blister With Device 1 inh INHALATION QDAY Discontinued ibuprofen 800 mg tablet 800 mg PO BID Referrals: Avelino Motley MD [Physician] - No Primary/Family,Physician [Primary Care Provider] - Patient/Caregiver Discharge Instructions Discharge Activity: as per physical therapy Education Materials: Preventing Pneumonia, Treating Pneumonia, Planning to Quit Smoking, Smoking Get Help for Quitting, Embolism Pulmonary Dc Print Language: Occitan Stand Alone Forms: Leisa Award Info., Patient Portal Info Letter Discharge Order Discharge Orders: Discharge (Routine); Ordered 09/07/24 Ordered By: Karina Parr Quality Discharge Quality Measures VTE prophylaxis
--- NOTE | 2024-09-08 17:01 | PC.CM ---
Patient accepted by [facility]. Start of care date 09/10.
--- NOTE | 2024-09-10 13:09 | PC.CC ---
Shana mackay/ [facility] requested cocci and quant results. Sent to [facility]
== END 2024-09-07 14:50 | disposition home health service (06) | DRG 137 ==
LOC: SERX 23:19 → SERHOLD 09-03 03:55 → S3SX 09-03 05:32 → S2NX 09-06 02:50
PROVIDERS: Admitting Provider Student in an Organized Health Care Education/Training Program; Emergency Provider Emergency Medicine; Visit Provider Internal Medicine
DX: J15.1 Pneumonia due to Pseudomonas (principal); I26.99 Other pulmonary embolism without acute cor pulmonale; E87.6 Hypokalemia; E83.42 Hypomagnesemia; J44.0 Chronic obstructive pulmonary disease with (acute) lower respiratory infection; J96.01 Acute respiratory failure with hypoxia; E87.20 Acidosis, unspecified; B37.31 Acute candidiasis of vulva and vagina; G35 Multiple sclerosis; Z16.19 Resistance to other specified beta lactam antibiotics; J44.1 Chronic obstructive pulmonary disease with (acute) exacerbation; J98.4 Other disorders of lung; B96.20 Unspecified Escherichia coli [E. coli] as the cause of diseases classified elsewhere; N13.30 Unspecified hydronephrosis; E87.0 Hyperosmolality and hypernatremia; E03.9 Hypothyroidism, unspecified; I10 Essential (primary) hypertension; M19.90 Unspecified osteoarthritis, unspecified site; K59.00 Constipation, unspecified; F17.210 Nicotine dependence, cigarettes, uncomplicated; Z90.710 Acquired absence of both cervix and uterus; Z90.49 Acquired absence of other specified parts of digestive tract; Z71.6 Tobacco abuse counseling; Z79.01 Long term (current) use of anticoagulants; Z79.890 Hormone replacement therapy; Z79.899 Other long term (current) drug therapy; Z88.6 Allergy status to analgesic agent; Z88.0 Allergy status to penicillin; Z88.2 Allergy status to sulfonamides; Z91.048 Other nonmedicinal substance allergy status; Z88.8 Allergy status to other drugs, medicaments and biological substances
CPT/HCPCS: 36415; 36600; 71045; 71275; 74018; 80053; 80069; 81001; 82248; 82803; 83036; 83605; 83735; 83880; 84100; 84132; 84145; 84439; 84443; 84484; 85025; 85379; 85610; 85652; 85730; 86140; 86331; 86480; 86635; 87015; 87040; 87077; 87081; 87086; 87116; 87186; 87205; 87206; 87400; 87449; 87811; 93005; 93225; 93306; 93970; 94640; 96361; 96365; 96366; 96367; 96368; 96375; 97162; 99291; A4649; A9270; J0131; J0692; J0696; J1200; J1644; J1650; J1885; J2405; J2919; J3370; J3475; J3480; J7030; J7050; J7120; J7999; Q9967

== ENCOUNTER → 2024-09-10 | Outpatient (BNVA) | payer MEDICAID, SELFPAY | END | disposition home or self-care (01) | PROVIDERS: PCP Nurse Practitioner Family; Referring Provider Nurse Practitioner Family; Visit Provider Nurse Practitioner Family | DX: Z09 Encounter for follow-up examination after completed treatment for conditions other than malignant neoplasm (principal); R60.9 Edema, unspecified; I26.99 Other pulmonary embolism without acute cor pulmonale; I10 Essential (primary) hypertension; J44.9 Chronic obstructive pulmonary disease, unspecified; J18.9 Pneumonia, unspecified organism; J44.1 Chronic obstructive pulmonary disease with (acute) exacerbation; R91.8 Other nonspecific abnormal finding of lung field; R09.02 Hypoxemia; R31.9 Hematuria, unspecified; R63.8 Other symptoms and signs concerning food and fluid intake; Z71.2 Person consulting for explanation of examination or test findings; F17.200 Nicotine dependence, unspecified, uncomplicated; E87.1 Hypo-osmolality and hyponatremia; E03.9 Hypothyroidism, unspecified; R06.02 Shortness of breath; R53.83 Other fatigue | CPT/HCPCS: 99212; G0463 ==

== ENCOUNTER → 2024-09-26 | Outpatient (BNVA) | payer MEDICAID, SELFPAY | END | disposition home or self-care (01) | PROVIDERS: PCP Nurse Practitioner Family; Referring Provider Nurse Practitioner Family; Visit Provider Nurse Practitioner Family | DX: Z09 Encounter for follow-up examination after completed treatment for conditions other than malignant neoplasm (principal); J44.1 Chronic obstructive pulmonary disease with (acute) exacerbation; N39.0 Urinary tract infection, site not specified; B96.5 Pseudomonas (aeruginosa) (mallei) (pseudomallei) as the cause of diseases classified elsewhere; R31.9 Hematuria, unspecified; R91.8 Other nonspecific abnormal finding of lung field | CPT/HCPCS: 99212; G0463 ==

== ENCOUNTER → 2024-09-28 | Outpatient (BNVA) | payer MEDICAID, SELFPAY | END | disposition home or self-care (01) | PROVIDERS: PCP Nurse Practitioner Family; Referring Provider Nurse Practitioner Family; Visit Provider Internal Medicine | DX: Z09 Encounter for follow-up examination after completed treatment for conditions other than malignant neoplasm (principal); J18.9 Pneumonia, unspecified organism; I10 Essential (primary) hypertension; I26.99 Other pulmonary embolism without acute cor pulmonale; R60.9 Edema, unspecified; J44.9 Chronic obstructive pulmonary disease, unspecified; R91.8 Other nonspecific abnormal finding of lung field; R31.9 Hematuria, unspecified; F17.210 Nicotine dependence, cigarettes, uncomplicated; E87.1 Hypo-osmolality and hyponatremia; E03.9 Hypothyroidism, unspecified; R53.83 Other fatigue | CPT/HCPCS: 99214 ==

== ENCOUNTER → 2024-11-28 | Outpatient (BNVA) | payer MEDICAID, SELFPAY | END | disposition home or self-care (01) | PROVIDERS: PCP Nurse Practitioner Family; Referring Provider Nurse Practitioner Family; Visit Provider Nurse Practitioner Family | DX: N39.0 Urinary tract infection, site not specified (principal); B96.5 Pseudomonas (aeruginosa) (mallei) (pseudomallei) as the cause of diseases classified elsewhere; L89.156 Pressure-induced deep tissue damage of sacral region | CPT/HCPCS: 99214 ==

== ENCOUNTER → 2024-12-05 | Outpatient (BNVA) | payer MEDICAID, SELFPAY | END | disposition home or self-care (01) | PROVIDERS: PCP Nurse Practitioner Family; Referring Provider Nurse Practitioner Family; Visit Provider Nurse Practitioner Family | DX: R60.0 Localized edema (principal); J45.901 Unspecified asthma with (acute) exacerbation; R53.83 Other fatigue; E87.6 Hypokalemia; J18.9 Pneumonia, unspecified organism; I10 Essential (primary) hypertension | CPT/HCPCS: 99213 ==

== ENCOUNTER → 2024-12-17 | Outpatient (BNVA) | payer MEDICAID, SELFPAY | END | disposition home or self-care (01) | PROVIDERS: PCP Nurse Practitioner Family; Referring Provider Nurse Practitioner Family; Visit Provider Nurse Practitioner Family | DX: R11.2 Nausea with vomiting, unspecified (principal); R42 Dizziness and giddiness; L89.156 Pressure-induced deep tissue damage of sacral region | CPT/HCPCS: 99212; G0463 ==

== ENCOUNTER → 2025-01-17 | Outpatient (BNVA) | payer MEDICAID, SELFPAY | END | disposition home or self-care (01) | PROVIDERS: PCP Nurse Practitioner Family; Referring Provider Nurse Practitioner Family; Visit Provider Nurse Practitioner Family | DX: Z71.2 Person consulting for explanation of examination or test findings (principal); E78.5 Hyperlipidemia, unspecified; Z23 Encounter for immunization; Z76.0 Encounter for issue of repeat prescription; I10 Essential (primary) hypertension; E03.9 Hypothyroidism, unspecified; J44.9 Chronic obstructive pulmonary disease, unspecified; I26.99 Other pulmonary embolism without acute cor pulmonale; N39.0 Urinary tract infection, site not specified; B96.5 Pseudomonas (aeruginosa) (mallei) (pseudomallei) as the cause of diseases classified elsewhere; L89.156 Pressure-induced deep tissue damage of sacral region | CPT/HCPCS: 90471; 90472; 90677; 90686; 99214; G0008; G0009 ==

== ENCOUNTER → 2025-02-26 | Outpatient (BNVA) | payer MEDICAID, SELFPAY | END | disposition home or self-care (01) | PROVIDERS: PCP Nurse Practitioner Family; Referring Provider Nurse Practitioner Family; Visit Provider Nurse Practitioner Primary Care | DX: N39.0 Urinary tract infection, site not specified (principal); R05.9 Cough, unspecified; B96.5 Pseudomonas (aeruginosa) (mallei) (pseudomallei) as the cause of diseases classified elsewhere | CPT/HCPCS: 81001; 99214; 99215 ==

== ENCOUNTER → 2025-03-01 | Outpatient (BNVA) | payer MEDICAID, SELFPAY | END | disposition home or self-care (01) | PROVIDERS: PCP Nurse Practitioner Primary Care; Referring Provider Nurse Practitioner Primary Care; Visit Provider Nurse Practitioner Primary Care | DX: N39.0 Urinary tract infection, site not specified (principal) | CPT/HCPCS: 99212; G0463 ==

== ENCOUNTER 2025-03-05 12:51 | Emergency (ER) | payer MEDICAID, SELFPAY ==
--- NOTE | 2025-03-05 12:53 | XR_ITS ---
EXAMINATION: AP chest single view TECHNIQUE: AP portable upright chest single view Date and time: March 05, 2025, 1330 hours, comparison September 03, 2024 INDICATIONS: Sepsis alert today FINDINGS: Normal heart size Subsegmental atelectasis left base No lobar pneumonia Severe osteopenia Significant thoracic dextroscoliosis Operative reduction internal fixation fracture proximal right humerus with apparent nonunion IMPRESSION: Subtle atelectasis left base, no lobar pneumonia
--- NOTE | 2025-03-05 12:53 | EKG_ITS ---
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
--- NOTE | 2025-03-05 12:55 | XR_ITS ---
Examination: CT brain head without contrast. 2-D sagittal coronal reconstructions Date and time of exam: March 05, 2025, 1355 hours, comparison August 07, 2018 INDICATIONS: Ground-level fall today with injury to the head, head pain CTDI: vol (mGy): 44.8 DLP: (mGycm): 843 Technique: Multiple CT axial sections of the brain have been obtained, 5 mm slice thickness. Contrast has not been administered. 2-D sagittal, coronal reconstructions have been obtained Low dose protocols were performed. One or more of the following dose reduction techniques were used; automated exposure control, adjustment of the mA and/or KV according to patient size, use of iterative reconstruction technique. Findings: Mild ventricular enlargement. Intra-axial or extra-axial hemorrhage density is not seen. No mass effect or midline shift Basal cisterns are not remarkable. Fourth ventricle is midline. Cranial vault intact. Impression: Negative for acute hemorrhage, mass effect or midline shift
--- NOTE | 2025-03-05 12:55 | EDNOTE_ITS ---
<Statement entered by Bridget Epps MD - 03/21/25 17:41> As co-signing physician, I was present and available for consult prn. I concur with the plan and care as documented by the midlevel provider. ED General RME/HPI General Chief complaint: Weakness Stated complaint: WEAKNESS Time Seen by Provider: 03/05/25 12:52 Arrival date/time: 03/05/25 12:51 CC: Weakness, fall HPI patient presents to the ER via EMS onset several days ago patient was notified by [facility] that her urine was infected with an unusual infection , patient admits that in the interim she has been weak and experienced a fall yesterday. Patient denies loss of consciousness or altered level of conscious EMS report the patient is tachycardic with stable blood pressure. Family member at bedside at 1410 and states that the patient has been recovering from an extended stay at another facility for urine infection that required 30 days of meropenem she was back to walking, and as of yesterday the patient was no longer able to walk she was shaky and weak. With painful urination. Which the patient normally does not have. Family members wanted her checked out as a concerned that the patient has a recurring multidrug-resistant UTI restarting. Review the patient at 1900, the patient is no longer tachycardic. The patient is producing urine after 2 L of fluid laboratory results show no acute infection and the urine is clear. The patient has no acute finding requires emergent or immediate intervention we will discharge the patient home with weakness. Related Data Home Medications ?Medication ?Instructions ?Recorded ?Confirmed montelukast 10 mg tablet 1 tab PO HS ##0 09/01/1603/14 (Singulair) Previous Rx's ?Medication ?Instructions ?Recorded ergocalciferol (vitamin D2) 1,250 50,000 unit PO QWEEK 3 months #12 08/17/24 mcg (50,000 unit) capsule (Vitamin caps D2) tiotropium bromide 18 mcg capsule 1 cap inhalation QDA Y #90 puffs 12/05/24 with inhalation device (Spiriva with HandiHaler) albuterol sulfate 90 mcg/actuation 1 puff inhalation Q 6H PRN 01/17/25 aerosol inhaler Shortness Of Breath #8.5 gra ms apixaban 2.5 mg tablet (Eliquis) 2.5 mg PO BID 90 days #180 tabs 01/17/25 fluticasone furoate 200 1 inh inhalation QDAY #30 ea 01/17/25 mcg/actuation blister powder for inhalation (Arnuity Ellipta) levothyroxine 150 mcg tablet See Rx Instructions .Megan e 01/17/25 .COMPLEX #30 tabs levofloxacin 750 mg tablet 750 mg PO Q24H #7 tabs 12/13 Allergies Allergy/AdvReac Type Severity Reaction Status Date / Time adhesive tape Allergy Severe ANY Verified 03/01/25 08:55 MEDICAL TAPE / RASH Penicillins Allergy Mild Rash Verified 03/01/25 08:55 aspirin Allergy Unknown Verified 03/01/25 08:55 Sulfa (Sulfonamide Allergy Unknown Verified 03/01/25 08:55 Antibiotics) sulfacetamide Allergy Unknown Verified 03/01/25 08:55 Review of Systems Review of Systems Narrative Review of Systems: GEN: No fever, no chills, no weight loss EYES: No discharge, no visual changes, no pain HEENT: No ear pain, no congestion, no sore throat PULM: No shortness of breath, no cough, no congestion CV: No chest pain, no dyspnea on exertion, no palpitations GI: No nausea, no vomiting, no diarrhea, no pain, no constipation : No frequency, no urgency, no dysuria MUSC/SKEL: No joint pain, no back pain SKIN: No rash PSYCH: No hallucinations, no depression HEME/LYMPH: No easy bleeding or bruising tendencies NEURO: + weakness, no headache Past Medical History Past Medical History NEUROLOGIC: Positive Neurological Disorders and Multiple Sclerosis; Negative Seizures CARDIAC: Positive Cardiac Disorders and Hypertension; Negative Congestive Heart Failure RESPIRATORY: Positive Chronic Obstructive Pulmonary Disease (COPD) and Asthma GASTROINTESTINAL: Positive Gastrointestinal Disorders and Gall Bladder Disease GENITOURINARY: Negative Genitourinary Disorders or Renal Disease REPRODUCTIVE: Positive Previous Pregnancies; Negative Genital Herpes, Gonorrhea or Syphilis MUSCULOSKELETAL: Positive Musculoskeletal Disorders, Osteoporosis, Carpal Tunnel Syndrome, Fibromyalgia, Fractures and Degenerative Joint Disease ENDOCRINE: Positive Endocrine Disorders and Hypothyroidism; Negative Diabetes Mellitus Type 1 or Diabetes Mellitus Type 2 HEMATOLOGIC: Negative Blood Disorders, Anemia or Sickle Cell Disease PSYCHO/SOCIAL: Negative Depression OTHER HISTORY: Positive Hospitalization, Falls and Chicken Pox; Negative Blood Transfusions, Anesthesia Reactions, Organ Transplant, Chemotherapy, Radiation Therapy, MRSA, VRSA, Vancomycin-Resistant Enterococci or Cancer Family History FAMILY HISTORY: Positive Family Gastrointestinal Problems and Family Cancer; Negative Family Anesthesia Reaction Surgical History SURGICAL: Positive Eye Surgery, Abdominal Surgery, Open Reduction Internal Fixation, Hysterectomy and Section; Negative Neurologic Surgery, Brain Shunt or Organ Transplant Social History SMOKING STATUS: Current every day smoker SECOND HAND EXPOSURE: Yes SUBSTANCE USE: does not use ED Exam Narrative Physical exam: [General: Thin, but not emaciated. In mild discomfort but not in any acute distress Head normocephalic no step-offs hematoma induration ulceration crepitus or depression. HEENT: Eyes pupils are PERRLA EOMs are intact no entrapment mouth [place] dry membranes uvula is midline swallow symmetrical phonation is normal. Nose no rhinorrhea, no lundberg signs raccoon's eyes swallow symmetrical phonation is normal. Within acceptable limits Neck is supple nontender no JVD no edema Chest equal chest rise nontender to palpation Respiratory: Clear to auscultation no wheezes crackles or rubs CV: Rate rhythm is regular, tachycardic, no murmurs rubs or clicks Abdomen is soft nontender no masses positive bowel sounds all 4 quadrants Back: No CVA tenderness no spinous process tenderness from cervical spine thoracic and lumbar spine Skin: Intact no petechiae rash induration ulceration or crepitus Extremities: Moving all extremity against resistance cap refill less than 2 seconds neurosensory intact Neuro: Awake alert oriented x3 Glascow coma 15 no focal deficits] Course Quality Measures none Orders Category Date Time Status Product Engineer STAT Care 03/05/25 12:53 Completed Continuous Pulse Oximetry STAT Care 03/05/25 12:53 Completed EKG (ED ONLY) *Do not use* NOW Care 03/05/25 12:53 Completed In and Out Catheter X1 Care 03/05/25 15:44 Completed In and Out Catheter X1PRN Care 03/05/25 12:53 Completed Insert IV NOW Care 03/05/25 12:53 Completed NPO STAT Care 03/05/25 12:53 Completed Strict Intake and Output Routine Care 03/05/25 12:[address] cervical spine wo con Stat Exams 03/05/25 12:[address] head/brain wo con Stat Exams 03/05/25 12:55 Completed EKG (ED Only) Stat Exams 03/05/25 12:53 Draft XR chest 1V SEPSIS PROTOCOL Stat Exams 03/05/25 12:53 Completed B-Type Natriuretic Peptide Stat Lab 03/05/25 13:07 Completed Blood Culture (Lab) Stat Lab 03/05/25 13:10 Received CBC Stat Lab 03/05/25 13:07 Completed Comprehensive Metabolic Panel Stat Lab 03/05/25 13:07 Completed LDH (Lactate Dehydrogenase) Stat Lab 03/05/25 13:07 Completed Lactate (Lactic Acid) Stat Lab 03/05/25 13:07 Completed Lipase Stat Lab 03/05/25 13:07 Completed Magnesium Stat Lab 03/05/25 13:07 Completed Partial Thromboplastin Time Stat Lab 03/05/25 13:07 Completed Phosphorous Stat Lab 03/05/25 13:07 Completed Procalcitonin Stat Lab 03/05/25 13:07 Completed Prothrombin Time with INR Stat Lab 03/05/25 13:07 Completed Troponin I Stat Lab 03/05/25 13:07 Completed Urinalysis, C/S if Indicated Stat Lab 03/05/25 17:45 Completed Ringers Lactated 1000 ml [Lactated Ringers] 1,000 ml Med 03/05/25 12:53 Discontinued IV 999 mls/hr Ringers Lactated 1000 ml [Lactated Ringers] 1,000 ml Med 03/05/25 16:36 Discontinued IV 999 mls/hr Oxygen Delivery NOW RT 03/05/25 12:53 Completed Vital Signs Vital signs: Vital Signs Temperature 99.1 F 03/05/25 13:46 Pulse Rate 116 H 03/05/25 13:46 Respiratory Rate 26 H 03/05/25 13:46 Blood Pressure 119/92 H 03/05/25 13:46 Pulse Oximetry (%) 95 03/05/25 13:46 Oxygen Delivery Method Room Air 03/05/25 13:46 Discharge Plan Plan Patient Disposition: HOME (Self Care) Patient condition on transfer: Stable Prescriptions/Referrals Prescriptions/Med Rec: No Action tiotropium bromide [Spiriva with HandiHaler] 18 mcg capsule, w/inhalation device 1 cap inhalation QDAY Qty: 90 0RF Rx Instructions: puncture 1 cap using device; one dose = 2 inhalations ergocalciferol (vitamin D2) [Vitamin D2] 1,250 mcg (50,000 unit) capsule 50,000 unit PO QWEEK 90 Days Qty: 12 1RF Eliquis 2.5 mg tablet 2.5 mg PO BID 90 Days Qty: 180 0RF albuterol sulfate 90 mcg/actuation HFA aerosol inhaler 1 puff INHALATION Q6H PRN (Reason: Shortness Of Breath) Qty: 8.5 3RF Arnuity Ellipta 200 mcg/actuation blister with device 1 inh INHALATION QDAY Qty: 30 1RF levothyroxine 150 mcg tablet See Rx Instructions .ROUTE .COMPLEX Qty: 30 0RF Dose Instruction: TAKE ONE TABLET BY MOUTH EVERY MORNING ON an EMPTY stomach FOR THYROID Rx Instructions: TAKE ONE TABLET BY MOUTH EVERY MORNING ON an EMPTY stomach FOR THYROID levofloxacin 750 mg tablet 750 mg PO Q24H Qty: 7 0RF montelukast [Singulair] 10 MG tablet 1 tab PO HS Qty: 0 Referrals: No Primary/Family,Physician [Primary Care Provider] - In 1 week Problem List Clinical Impression: Weakness Patient/Caregiver Discharge Instructions Other Activity Instructions:: There is no big finding no urinary infection no infection in the bloodstream. Your laboratory results are unremarkable no damage to the kidneys no electrolyte imbalance no anemia no acute finding that requires emergent or immediate intervention. Education Materials: ED Weakness (Uncertain Cause) Print Language: [place] Stand Alone Forms: Celly Info., Patient Portal Info Letter PA/GEAR HOBBER OPERATOR Supervising Physician PA/GEAR HOBBER OPERATOR Supervising Physician: Bjorn Huber ENP [facility] Clinical Information Provided by: patient and EMS [facility] Meds/Rx considered, not ordered None Labs/Rad/Tests considered, not ordered None Chronic Illness/Social Conditions Explain: COPD EKG Interpretation EKG #1: EKG Interpretation: EKG performed at 1324 shows a ventricular rate of 111 WA interval 184 QRS of 88 QTc of 389 this is sinus tachycardia. Labs Labs: interpreted by de Lab(s) Interpretation(s): CBC shows no acute leukocytosis anemia thrombocytopenia Coags within acceptable meds CMP shows a chloride of 111 gap of 6 no other electrolyte imbalances renal impairment transaminitis or T. bili elevation Troponin is undetectable. BMP is 30. Lipase is negative Pro-Leodan is less than 0.04. Imaging Imaging interpretation: interpreted by de Imaging Interpretation(s): Chest x-ray is negative for any acute finding. CT head and C-spine are negative for any acute finding required emergent or immediate intervention. Medication Administration(s) Medication Administration History Discontinued Medications Lactated Ringer's (Lactated Ringers) 1,000 mls @ 999 mls/hr IV .Q1H1M ONE Stop: 03/05/25 13:53 Last Infusion: 03/05/25 15:55 Dose: Infused Documented By: Admin: 03/05/25 14:54 Dose: 999 mls/hr Documented By: LIBBY Lactated Ringer's (Lactated Ringers) 1,000 mls @ 999 mls/hr IV .Q1H1M ONE Stop: 03/05/25 17:36 Last Infusion: 03/05/25 17:52 Dose: Infused Documented By: Admin: 03/05/25 16:51 Dose: 999 mls/hr Documented By: LIBBY
--- NOTE | 2025-03-05 12:55 | XR_ITS ---
Examination: CT cervical spine without contrast 2-D sagittal reconstructions 2-D coronal reconstructions 3-D reconstructions. Exam date and time: March 05, 2025, 1355 hours INDICATIONS: Patient fell today with injury to the neck, neck pain CTDI:vol (mGy) 13.1 DLP: (mGycm) 275 Technique: Multiple 2 mm axial sections of the cervical spine have been obtained. The coronal and sagittal reconstructions have been obtained. 3-D reconstructions have been obtained. Low dose protocols were performed. One or more of the following dose reduction techniques were used; automated exposure control, adjustment of the mA and/or KV according to patient size, use of iterative reconstruction technique. Findings: Axial sections demonstrate intact base of the skull. C1 exhibit satisfactory relationship to the odontoid. No acute cervical vertebral body fracture seen. Alignment posterior spinous processes satisfactory. Impression: No acute cervical fracture.
[2025-03-05 13:08] VITALS: PULSE 116; RESP 16; O2SAT 98
[2025-03-05 13:18] VITALS: BMI 23.8
[2025-03-05 13:21] LABS: Lactate (Lactic Acid) 1.1 mMol/L (0.4-2.0)
[2025-03-05 13:22] LABS: Basophils # (Auto) 0.1 Thou/mm3 (0.0-0.2); Basophils % (Auto) 1 % (0-2.5); Eosinophils # (Auto) 0.1 Thou/mm3 (0.0-0.5); Eosinophils % (Auto) 2 % (0-10); Hematocrit 42.2 % (36.0-46.0); Hemoglobin 13.9 g/dL (12.0-16.0); Immature Granulocytes Auto 0.01 Thou/mm3 (0.00-0.00); Lymphocytes # (Auto) 1.2 Thou/mm3 (1.0-4.8); Lymphocytes % (Auto) 20 % (10-50); Mean Corpuscular HGB Conc 32.9 g/dl (31.0-37.0); Mean Corpuscular Hemoglobin 30.6 pg (25.0-35.0); Mean Corpuscular Volume 93 fL (80-100); Monocytes # (Auto) 0.6 Thou/mm3 (0.0-0.8); Monocytes % (Auto) 9 % (0-12); Neutrophils # (Auto) 4.2 Thou/mm3 (1.8-7.7); Neutrophils % (Auto) 69 % (37-80); Nucleated Red Blood Cell # 0.00 Thou/mm3 (0.00-0.00); Nucleated Red Blood Cell % 0 /100 WBC (0); Platelet Count 245 Thou/mm3 (140-440); RDW Standard Deviation 51.5 fL (36.4-46.3); Red Blood Count 4.54 Miln/mm3 (4.00-5.20); White Blood Count 6.1 Thou/mm3 (3.6-11.0)
[2025-03-05 13:40] LABS: B-Type Natriuretic Peptide 30 pg/mL (0-100)
[2025-03-05 13:42] LABS: INR 1.1 (0.9-1.3); Partial Thromboplastin Time 26.2 Seconds (22.0-36.0); Prothrombin Time 11.5 Seconds (9.0-12.2)
[2025-03-05 13:44] LABS: Alanine Aminotransferase 11 U/L (10-49); Albumin, Serum 4.4 gm/dL (3.4-4.8); Anion Gap 6 (7-16); Aspartate Amino Transferase 18 U/L (0-34); BUN/Creatinine Ratio 14 Ratio (12-20); Bilirubin,Total 0.5 mg/dL (0.3-1.2); Blood Urea Nitrogen 10 mg/dL (9-23); Calcium 9.4 mg/dL (8.3-10.6); Carbon Dioxide 24.7 mMol/L (20.0-31.0); Chloride 111 mMol/L (98-107); Creatinine (Component) 0.7 mg/dL (0.6-1.3); Estimated Creatinine Clearance 66.8 mL/min (>60); Glucose 88 mg/dL (74-106); LDH (Lactate Dehydrogenase) 120 U/L (120-246); Magnesium 1.8 mg/dL (1.6-2.6); Osmolality,Calculated 281 (275-295); Phosphorous 3.3 mg/dL (2.4-5.1); Potassium 3.8 mMol/L (3.4-5.1); Sodium 142 mMol/L (136-145); Total Protein 6.8 gm/dL (5.7-8.2); Troponin I < 0.002 ng/mL (0.0-0.045); eGFR > 60 See Note
[2025-03-05 13:45] LABS: Albumin/Globulin Ratio 1.8 (1.2-2.2); Alkaline Phosphatase 80 U/L (46-116); Calcium (Corrected) 9.4 mg/dL (8.5-10.1); Globulin 2.4 gm/dL (2.3-3.5); Lipase 40 U/L (12-53)
[2025-03-05 13:46] VITALS: BP 119/92; PULSE 116; RESP 26; TEMP 37.3; O2SAT 95
[2025-03-05 13:48] LABS: Procalcitonin < 0.04 ng/ml (0.0-0.49)
[2025-03-05] MEDS: RINGERS LACTATED 1000 ML 1,000 ML 999 ML IV ×2 (14:54→16:51)
[2025-03-05 16:41] VITALS: BP 116/95; PULSE 90; RESP 20; TEMP 36.6; O2SAT 95
[2025-03-05 17:55] LABS: Collection Type, Urine Clean Catch
[2025-03-05 18:01] LABS: Bilirubin,Urine Negative (Negative); Blood,Urine Negative (Negative); Clarity,Urine Clear (Clear/Hazy); Color,Urine Lt-Yellow (Lt Yel-Yel); Culture Indicated,Urine Not Indicated; Glucose, Urine Negative (Negative); Ketones,Urine Negative (Negative); Leukocyte Esterase,Urine Negative (Negative); Nitrite,Urine Negative (Negative); PH,Urine 6.5 (5.0-7.0); Protein,Urine Negative (Neg - Trace); RBC,Urine 1 /hpf (0-3); Specific Gravity,Urine 1.010 (1.001-1.035); Squamous Epithelial Cell,Urine < 1 /hpf (0-5); Urobilinogen,Urine Negative mg/dL (0.0-1.0); WBC,Urine 1 /hpf (0-5)
[2025-03-05 18:35] VITALS: BP 125/93; PULSE 88; RESP 32; O2SAT 97
--- NOTE | 2025-04-18 09:52 | PC.IP ---
Received call from Eligio Gallegos, Enhanced Care Management, from [facility] requesting information regarding two referrals provided to the patient from [place]. Reviewed chart and confirmed patient was seen at the [facility] in [place]. Advised caller to contact the [facility] directly and provided clinic phone number to Eligio
== END 2025-03-05 19:24 | disposition home or self-care (01) ==
PROVIDERS: Registered Nurse General Practice; Emergency Provider Emergency Medicine
DX: R53.1 Weakness (principal); S19.9XXA Unspecified injury of neck, initial encounter; S09.90XA Unspecified injury of head, initial encounter; F17.200 Nicotine dependence, unspecified, uncomplicated; I10 Essential (primary) hypertension; W18.30XA Fall on same level, unspecified, initial encounter
CPT/HCPCS: 36415; 51701; 70450; 71045; 72125; 80053; 81001; 83605; 83615; 83690; 83735; 83880; 84100; 84145; 84484; 85025; 85610; 85730; 87040; 93005; 96360; 96361; 99284; J7120